=== PATIENT | female | born 1990 | race Native Hawaiian/Other Pacific Islander ===

== ENCOUNTER 2019-12-12 14:16 | Outpatient (REF) | payer MEDICAID, SELFPAY | END 2019-12-12 14:17 | disposition home or self-care (01) | LOC: HO.LAB 14:16 | PROVIDERS: PCP Internal Medicine; Visit Provider Internal Medicine | DX: Z20.828 Contact with and (suspected) exposure to other viral communicable diseases (principal) | CPT/HCPCS: C9803; U0003 ==

== ENCOUNTER → 2020-03-25 13:36 | Outpatient (BNVA) | payer MEDICAID, SELFPAY | PROVIDERS: PCP Internal Medicine; Referring Provider Internal Medicine; Visit Provider Physician Assistant ==

== ENCOUNTER 2020-04-23 11:27 | Outpatient (REF) | payer MEDICAID, SELFPAY ==
--- NOTE | ~2020-04-23 | US_ITS ---
EXAMINATION: PELVIC ULTRASOUND CLINICAL INFORMATION: Left lower quadrant pain. Evaluate for left ovarian cyst. COMPARISON: Previous CT of the abdomen and pelvis September 2019 TECHNIQUE: Transabdominal and transvaginal pelvic ultrasound was performed. Transvaginal exam was performed for better visualization of the uterus and ovaries. FINDINGS: The uterus is anteverted and measures 8.4 x 4.1 x 4.7 cm in dimension. No focal uterine lesion is seen. There is an IUD in the uterus in satisfactory position. The endometrium does not appear thickened. The cervix is normal appearing. The ovaries are upper normal in size. The right ovary measures 3.9 x 2.8 x 2.4 cm and the left ovary measures 3.2 x 3.5 x 2.2 cm. There are multiple small peripheral ovarian cysts or follicles. Appearance is questionable for polycystic ovarian syndrome. There is trace fluid in the pelvis. US/US pelvic complete IMPRESSION: IUD in satisfactory position. Upper normal-size ovaries with multiple small peripheral follicles or cysts. Ultrasound appearance is questionable for polycystic ovarian syndrome.
--- NOTE | ~2020-04-23 | US_ITS ---
EXAMINATION: PELVIC ULTRASOUND CLINICAL INFORMATION: Left lower quadrant pain. Evaluate for left ovarian cyst. COMPARISON: Previous CT of the abdomen and pelvis September 2019 TECHNIQUE: Transabdominal and transvaginal pelvic ultrasound was performed. Transvaginal exam was performed for better visualization of the uterus and ovaries. FINDINGS: The uterus is anteverted and measures 8.4 x 4.1 x 4.7 cm in dimension. No focal uterine lesion is seen. There is an IUD in the uterus in satisfactory position. The endometrium does not appear thickened. The cervix is normal appearing. The ovaries are upper normal in size. The right ovary measures 3.9 x 2.8 x 2.4 cm and the left ovary measures 3.2 x 3.5 x 2.2 cm. There are multiple small peripheral ovarian cysts or follicles. Appearance is questionable for polycystic ovarian syndrome. There is trace fluid in the pelvis. US/US transvaginal IMPRESSION: IUD in satisfactory position. Upper normal-size ovaries with multiple small peripheral follicles or cysts. Ultrasound appearance is questionable for polycystic ovarian syndrome.
[2020-04-23 12:49] LABS: MANUAL DIFF FLAG NO
[2020-04-23 12:54] LABS: Basophils Percent Auto 0.5 % (0-2); Eosinophils Absolute Auto 0.1 X10*3/uL (0.0-0.4); Eosinophils Percent Auto 1.7 % (0-4); Hematocrit 38.9 % (37-47); Hemoglobin 12.5 g/dl (12.0-16.0); Imm Gran Abs Auto 0.01 X10*3/uL (0.00-0.03); Imm Gran Pct Auto 0.2 % (0.0-0.4); Lymphocytes Absolute Auto 3.1 X10*3/uL (1.2-4.9); Lymphocytes Percent Auto 47.7 % (20-40); Mean Corpuscular HGB Conc 32.1 g/dl (31.0-35.0); Mean Corpuscular Hemoglobin 27.3 pg (27.0-33.0); Mean Corpuscular Volume 84.9 fL (80-98); Mean Platelet Volume 9.6 fL (9.4-12.3); Monocytes Absolute Auto 0.5 X10*3/uL (0.1-1.2); Monocytes Percent Auto 7.6 % (2-11); Neutrophils Absolute Auto 2.7 X10*3/uL (2.0-8.3); Neutrophils Percent Auto 42.3 % (45-73); Platelet Count 277 X10*3/uL (160-400); Red Blood Count 4.58 X10*6/uL (4.20-5.50); Red Cell Distribution Width 13.1 % (11.0-16.0); White Blood Count 6.4 X10*3/uL (4.8-10.8)
[2020-04-23 13:15] LABS: Alanine Aminotransferase 32 U/L (0-31); Albumin Level 4.5 g/dL (3.5-5.0); Alkaline Phosphatase 69 U/L (39-117); Anion Gap 9 (12-20); Aspartate Amino Transferase 27 U/L (5-31); Bilirubin Direct 0.2 mg/dL (0.0-0.5); Bilirubin Total 0.8 mg/dL (0.0-1.0); Blood Urea Nitrogen 12 mg/dL (9-16); Calcium 9.5 mg/dL (8.4-10.2); Carbon Dioxide 29 mmol/L (22-29); Chloride 104 mmol/L (96-108); Estimated Glomerular Filt Rate > 60; Glucose Random 100 mg/dL (60-115); Potassium 4.2 mmol/L (3.3-5.1); Sodium 138 mmol/L (135-145); Total Protein 7.5 g/dL (6.5-8.0)
== END 2020-04-23 11:28 | disposition home or self-care (01) ==
LOC: HO.US 11:27
PROVIDERS: Absent Provider Physician Assistant; PCP Internal Medicine; Visit Provider Advanced Practice Midwife
DX: R10.11 Right upper quadrant pain (principal); N83.202 Unspecified ovarian cyst, left side; R74.01 Elevation of levels of liver transaminase levels; K76.0 Fatty (change of) liver, not elsewhere classified
CPT/HCPCS: 36415; 76830; 76856; 80053; 80076; 82248; 83525; 85025

== ENCOUNTER → 2020-07-09 12:55 | Outpatient (BNVA) | payer MEDICAID, SELFPAY | PROVIDERS: PCP Internal Medicine; Visit Provider Obstetrics & Gynecology | DX: N75.0 Cyst of Bartholin's gland (principal) | CPT/HCPCS: 56420; 81025 ==

== ENCOUNTER → 2020-08-06 14:01 | Outpatient (BNVA) | payer MEDICAID, SELFPAY | PROVIDERS: PCP Internal Medicine; Visit Provider Obstetrics & Gynecology | DX: N75.0 Cyst of Bartholin's gland (principal) | CPT/HCPCS: 99212 ==

== ENCOUNTER 2020-08-21 11:22 | Emergency (ER) | payer MEDICAID, SELFPAY ==
[2020-08-21 11:25] VITALS: BP 121/74; PULSE 53; O2SAT 100
[2020-08-21 11:38] VITALS: BP 140/78; PULSE 77; RESP 18; TEMP 36.7; O2SAT 97; BMI 37.9
--- NOTE | 2020-08-21 11:51 | ED.GENADULT ---
HPI - General Adult General Chief complaint: General Medical Stated complaint: arm tingling x1day Time Seen by Provider: 08/21/20 11:31 Source: patient Limitations: no limitations History of Present Illness HPI narrative: Patient received a 2nd dose of the Covid vaccine on Tuesday. Patient felt some arm tingling and that her blood pressure was up in some irregular heartbeats. Patient denies nausea vomiting. No shortness of breath patient takes no current medications. Patient denies tobacco use. Patient denies drug or alcohol use. Symptoms are mild. Patient denies any increased stress in her life at this time. No other complaints at this time. Related Data Home Medications Medication Instructions Recorded Confirmed levonorgestrel 20 mcg/24 hours (6 INTRAUTERINE 07/09/20 yrs) 52 mg intrauterine device Allergies Allergy/AdvReac Type Severity Reaction Status Date / Time medroxyprogesterone Allergy Intermediate hives Verified 08/06/20 14:08 [Depo-Provera] Review of Systems Constitutional: Constitutional: Denies body ache(s), Denies chills, Denies fever(s), Denies headache(s) and Denies lethargy Eyes: Eyes: Denies diplopia ENT: Denies headache(s), Denies sore throat, Denies throat swelling and Denies tongue swelling Cardiovascular: Cardiovascular: Denies chest pain, Denies lightheadedness and Denies dyspnea Respiratory: Respiratory: Denies cough and Denies dyspnea Gastrointestinal: Gastrointestinal: Denies diarrhea, Denies nausea and Denies vomiting Musculoskeletal: Musculoskeletal: Reports as per HPI, Denies back pain, Denies myalgias and Denies numbness Neurologic: Denies confusion, Denies headache(s), Denies numbness and Denies Sensory deficit (Neuro) Psychiatric: Psychiatric: Denies confusion, Denies depression and Denies panic attacks Hematologic/Lymphatic: Hematologic/Lymphatic: Reports as per HPI Allergic/Immunologic: Allergic/Immunologic: Denies seasonal rhinorrhea, Denies throat swelling and Denies tongue swelling [facility] Past Medical History Attestation statement: The following information was validated with the patient. Medical History NAFLD (nonalcoholic fatty liver disease) Family History Family History Mother Breast cancer Paternal Grandfather Liver problem Social History Social History Household Members: Significant Other Alcohol intake: current Alcohol intake frequency: holidays/special occasions only Patient Tobacco Use Status: Never used Tobacco Advance Directives: Yes Advance Directives Information Provided: Yes Advance Directives on File: No Current occupational status: employed Current occupation: [employer] Physical Exam Vital Signs: Vital Signs: Last Vital Signs Temp 98.0 F 08/21/20 11:38 Pulse 49 L 08/21/20 12:06 Resp 18 08/21/20 12:06 BP 122/68 08/21/20 12:06 Pulse Ox 99 08/21/20 12:06 Body Mass Index 37.9 Const: Other: Alert well-appearing no acute distress General: No confusion Orientation/consciousness: No confusion HENMT: Other: throat is clear uvula is midline oral mucosa is moist Eyes: Other: pupils equal round reactive extraocular movements are intact Neck: Other: soft supple full range of motion no midline tenderness Chest: Other: lung sounds clear to auscultation bilaterally Cardio: Other: regular rate and rhythm no murmurs and rubs upper extremity bilateral pulses are equal GI: Other: soft nontender no rebound or guarding positive bowel sounds : General: Yes no CVA tenderness Back/Spine/Pelvis: Other: no paraspinal muscle tenderness of the lumbar spine or midline tenderness. No Back: no CVA tenderness Skin: Other: skin is warm and dry no rashes ecchymoses Neuro: Other: alert oriented x3 speech is intact no ataxia belt turner is equal bilaterally. Patient has no pronator drift General: No confusion Sensory Exam: No Sensory deficit (Neuro) Extrem: Other: full range of motion of upper and lower extremities patient is ambulatory. No dependent edema noted. Course Course Course Narrative: Sinus arrhythmia Bradycardia Vaccine side-effect Hypertension Patient was seen at the [facility] today sent in the ER with question sinus rhythm on EKG. Patient states her blood pressure has been up and down patient denies chest pain shortness of breath fever chills at this time. EKG from clinic reviewed sinus rhythm at a rate of 49 rhythm is regular. case discussed with Dr. Scott agrees with the EKG findings of inverted T-waves 3 and AVF follow-up with PCP will be recommended will see if there is an old EKG to compare ECG was already read by Cardiology see reading below. [facility] [address] [place], [place] [id number] ReportDraft Patient: Selvin Aleman#: [id number]: 1990Acct:[id number]/Sex: 30 / FADM Date: 08/21/20Loc: [address] Dr: Ordering Physician: Marco A Allison Date of Service: 08/21/20 Procedure(s): ECG 12 lead EKG Accession Number(s): [id number] cc: ~ Test Reason : GENERAL MEDICAL Blood Pressure : / mmHG Vent. Rate : 050 BPM Atrial Rate : 050 BPM P-R Int : 132 ms QRS Dur : 086 ms QT Int : 418 ms P-R-T Axes : 032 -05 -12 degrees QTc Int : 381 ms Sinus bradycardia with sinus arrhythmia Otherwise normal ECG No previous ECGs available Referred By: Marco A Allison Electronically Signed By: Dictated By:Signed By: DD/ [id number]/TT: 08/21/20 1203Transcriptionist: Medical Decision Making Lab Data Labs: Lab Results 08/21/20 Range/Units 12:00 POC Glucose 98 (60-115) mg/dL Discharge Plan Discharge Clinical Impression: Sinus bradycardia Patient Disposition: Home, Self-Care Instructions: Bradycardia (ED) Additional Instructions: Advised to follow up with the PCP for re-evaluation of vital signs Your blood sugar is normal at 98 EKG was reviewed by cardiology Prescriptions: No Action Mirena 20 mcg/24 hours (6 yrs) 52 mg intrauterine device intrauterine RF: 0 Referrals: Sue Madrid MD [Primary Care Provider] - 2 days
[2020-08-21 12:06] VITALS: BP 122/68; PULSE 49; RESP 18; O2SAT 99
[2020-08-21 12:10] LABS: Glucose, Whole Blood 98 mg/dL (60-115)
== END 2020-08-21 12:50 | disposition home or self-care (01) ==
PROVIDERS: Emergency Provider Emergency Medicine; PCP Internal Medicine
DX: R00.1 Bradycardia, unspecified (principal)
CPT/HCPCS: 82947; 93005; 99284

== ENCOUNTER 2020-08-21 15:37 | Emergency (ER) | payer MEDICAID, SELFPAY ==
[2020-08-21 15:44] VITALS: BP 124/82; PULSE 65; RESP 18; TEMP 36.8; O2SAT 99; BMI 37.9
[2020-08-21 20:00] VITALS: BP 118/67; PULSE 55; RESP 15; TEMP 36.8; O2SAT 100
--- NOTE | 2020-08-21 21:01 | ECG_ITS ---
Test Reason : SOB Blood Pressure : / mmHG Vent. Rate : 052 BPM Atrial Rate : 052 BPM P-R Int : 140 ms QRS Dur : 082 ms QT Int : 432 ms P-R-T Axes : 033 -07 -18 degrees QTc Int : 401 ms Sinus bradycardia with marked sinus arrhythmia Nonspecific T wave abnormality Abnormal ECG When compared with ECG of 21-AUG-2020 12:04, No significant change was found Referred By: Umesh Caceres Electronically Signed By:Itz Albert
--- NOTE | 2020-08-21 21:01 | ED.GENADULT ---
HPI - General Adult General Chief complaint: General Medical Stated complaint: Chest pain Time Seen by Provider: 08/21/20 20:59 Source: patient Mode of arrival: ambulatory Limitations: no limitations History of Present Illness HPI narrative: Patient with no known coronary disease no risk factor for coronary disease nonsmoker was seen earlier today for bradycardia with a rate of 49. Now she comes back pain as she has some sharp chest pain which is lasting only for few minutes. No shortness of breath no diaphoresis no palpitation patient does have anxiety and feels anxious Related Data Home Medications Medication Instructions Recorded Confirmed levonorgestrel 20 mcg/24 hours (6 INTRAUTERINE 07/09/20 yrs) 52 mg intrauterine device Allergies Allergy/AdvReac Type Severity Reaction Status Date / Time medroxyprogesterone Allergy Intermediate hives Verified 08/06/20 14:08 [Depo-Provera] Review of Systems Review of Systems: Constitutional : No Weight loss, No Fever, No Chills ENT/Mouth : No sore throat, No Rhinorrhea Eyes: No Eye Pain, No Swelling Cardiovascular : +Chest Pain, no palpitations Respiratory : No Cough, No Sputum, no shortness of breath Gastrointestinal : no Nausea, No Vomiting, No Diarrhea, No abdominal Pain, no black stools Genitourinary : No Dysuria, No Urinary Frequency Musculoskeletal : No joint pain, No Myalgias, No Joint Swelling Skin : No Skin Lesions, No rash Neuro : No Weakness, No Numbness, No Dizziness, No Headache Psych : No Anxiety/Panic, No Depression Heme/Lymph: No Bruising, No Lymphadenopathy Endocrine : No Polyuria, No Polydipsia All other systems reviewed and are negative [facility] Past Medical History Medical History NAFLD (nonalcoholic fatty liver disease) Family History Family History Mother Breast cancer Paternal Grandfather Liver problem Social History Social History Household Members: Significant Other Alcohol intake: never Patient Tobacco Use Status: Never used Tobacco Use of substances other than those prescribed or required for medical reasons: No Advance Directives: No Current occupational status: employed Current occupation: [employer] Physical Exam Vital Signs: Vital Signs: Last Vital Signs Temp 98.2 F 08/21/20 20:00 Pulse 55 08/21/20 20:00 Resp 15 08/21/20 20:00 BP 118/67 08/21/20 20:00 Pulse Ox 100 08/21/20 20:00 Body Mass Index 37.9 Appearance: Alert. Oriented X3. No acute distress. Anxious Eyes: PERRLA, No Nystagmus ENT: Pharynx normal. Oral Mucosa moist Neck: Normal inspection. Neck supple. CVS: Normal heart rate and rhythm. Pulses normal. Respiratory: No respiratory distress. Equal air entry bilateral, no wheezing/rales/rhonchi Abdomen: Soft and nontender. Bowel sounds are present, no mass palpable, no CVA tenderness Skin: Skin warm and dry. Normal skin color. Normal skin turgor. Extremities: No lower extremity edema. No calf tenderness Neuro: Oriented X 3. No motor deficit. No sensory deficit.No cerebellar signs , Medical Decision Making MDM Narrative Medical decision making narrative: Patient with atypical chest pain sharp in character patient seems very anxious with no risk factors will repeat the EKG ECG Data Attestation: I personally reviewed and interpreted this ECG as follows: Interpretation: Sinus bradycardia heart rate 52 beats per minute PACs no acute ischemic changes normal intervals normal axis Scores Heart Score History: -0- slightly suspicious ECG: -0- normal Age: -0- < or = 45 Risk factory: -0- no risk factors known Troponin: -0- < or = normal limit Score: 0 Risk: 1.7% Discharge Plan Discharge Clinical Impression: Atypical chest pain, Anxiety Patient Disposition: Home, Self-Care Instructions: Chest Pain (ED), Anxiety (ED) Additional Instructions: Your chest pain is not from the heart likely musculoskeletal/anxiety Follow with PCP as needed Prescriptions: No Action Mirena 20 mcg/24 hours (6 yrs) 52 mg intrauterine device intrauterine RF: 0
== END 2020-08-21 22:17 | disposition home or self-care (01) ==
PROVIDERS: Emergency Provider Internal Medicine; PCP Internal Medicine
DX: R07.89 Other chest pain (principal); F41.9 Anxiety disorder, unspecified
CPT/HCPCS: 93005; 99283; 99284

== ENCOUNTER 2020-09-23 18:47 | Emergency (ER) | payer MEDICAID, SELFPAY ==
[2020-09-23 20:07] VITALS: PULSE 68; RESP 18; TEMP 37; O2SAT 99; BMI 37.4
--- NOTE | 2020-09-23 20:09 | ECG_ITS ---
Test Reason : ANXIETY Blood Pressure : / mmHG Vent. Rate : 064 BPM Atrial Rate : 064 BPM P-R Int : 134 ms QRS Dur : 084 ms QT Int : 396 ms P-R-T Axes : 048 023 -18 degrees QTc Int : 408 ms Sinus rhythm with marked sinus arrhythmia Nonspecific T wave abnormality Abnormal ECG When compared with ECG of 21-AUG-2020 21:46, No significant change was found Referred By: Generic ED Physician Electronically Signed By:DREW LANDIS
[2020-09-23 20:10] VITALS: BP 121/67
[2020-09-23 20:44] LABS: MANUAL DIFF FLAG NO
[2020-09-23 20:47] LABS: Basophils Percent Auto 0.4 % (0-2); Eosinophils Absolute Auto 0.1 X10*3/uL (0.0-0.4); Eosinophils Percent Auto 0.8 % (0-4); Hematocrit 36.7 % (37-47); Hemoglobin 11.8 g/dl (12.0-16.0); Imm Gran Abs Auto 0.02 X10*3/uL (0.00-0.03); Imm Gran Pct Auto 0.2 % (0.0-0.4); Lymphocytes Absolute Auto 3.4 X10*3/uL (1.2-4.9); Lymphocytes Percent Auto 34.5 % (20-40); Mean Corpuscular HGB Conc 32.2 g/dl (31.0-35.0); Mean Corpuscular Hemoglobin 27.8 pg (27.0-33.0); Mean Corpuscular Volume 86.4 fL (80-98); Mean Platelet Volume 9.5 fL (9.4-12.3); Monocytes Absolute Auto 0.4 X10*3/uL (0.1-1.2); Monocytes Percent Auto 4.2 % (2-11); Neutrophils Absolute Auto 5.9 X10*3/uL (2.0-8.3); Neutrophils Percent Auto 59.9 % (45-73); Platelet Count 296 X10*3/uL (160-400); Red Blood Count 4.25 X10*6/uL (4.20-5.50); Red Cell Distribution Width 12.8 % (11.0-16.0); White Blood Count 9.8 X10*3/uL (4.8-10.8)
[2020-09-23 21:15] LABS: Alanine Aminotransferase 37 U/L (0-31); Albumin Level 4.4 g/dL (3.5-5.0); Alkaline Phosphatase 80 U/L (39-117); Anion Gap 11 (12-20); Aspartate Amino Transferase 25 U/L (5-31); Bilirubin Total 0.3 mg/dL (0.0-1.0); Blood Urea Nitrogen 6 mg/dL (9-16); Calcium 9.6 mg/dL (8.4-10.2); Carbon Dioxide 25 mmol/L (22-29); Chloride 107 mmol/L (96-108); Creatinine Clr Calc Pharmacy 125.5; Estimated Glomerular Filt Rate > 60; Glucose Random 89 mg/dL (60-115); Sodium 139 mmol/L (135-145); Total Protein 7.4 g/dL (6.5-8.0)
== END 2020-09-23 22:06 | disposition left against medical advice (07) ==
PROVIDERS: Emergency Provider Emergency Medicine; PCP Internal Medicine
DX: F41.9 Anxiety disorder, unspecified (principal); R20.0 Anesthesia of skin
CPT/HCPCS: 36415; 80053; 85025; 93005; 99283

== ENCOUNTER 2020-09-25 15:09 | Outpatient (REF) | payer MEDICAID, SELFPAY ==
[2020-09-26 09:13] LABS: CT PCR NOT DETECTED (Not Detect.); NG PCR NOT DETECTED (Not Detect.)
== END 2020-09-25 15:10 | disposition home or self-care (01) ==
LOC: HO.LAB 15:09
PROVIDERS: PCP Internal Medicine; Visit Provider Obstetrics & Gynecology
DX: R31.29 Other microscopic hematuria (principal); N94.10 Unspecified dyspareunia
CPT/HCPCS: 81025; 87491; 87591; 99212

== ENCOUNTER → 2020-09-30 10:56 | Outpatient (REF) | payer MEDICAID, SELFPAY ==
--- NOTE | 2020-09-30 11:00 | ECG_ITS ---
Hook-up date: 2020-09-30 11:19:00 Duration: 47:59:00 Test Indications: BRADYCARDIA Medications: 081599 QRS complexes * Ventricular ectopics which represent % of total QRS comp. 95 Supraventricular ectopics which represent <1 % of total QRS comp. * Paced QRS complexs which represent % of total QRS comp. VENTRICULAR ECTOPY * Isolated * Bigeminal Cycles * Couplets * Runs * Beats in Runs * Beats LONGEST at * BPM at :: -- * Beats FASTEST at * BPM at :: -- SUPRAVENTRICULAR ECTOPY 61 Isolated 9 Couplets 5 Runs 16 Beats in Runs 4 Beats LONGEST at 99 BPM at 12:50:08 2020-09-30 3 Beats FASTEST at 106 BPM at 18:41:15 2020-09-30 HEART RATES 39 MIN at 09:07:53 2020-10-01 72 AVG 147 MAX at 19:33:04 2020-09-30 LONGEST RR 1.6080 secs at 10:48:06 2020-10-01 S-T LEVELS Channel 1 - 128 mm at 11:19:00 2020-09-30 - 128 mm at 11:19:00 2020-09-30 Channel 2 - 128 mm at 11:19:00 2020-09-30 - 128 mm at 11:19:00 2020-09-30 Channel 3 - 128 mm at 03:03:81 -- - 128 mm at 03:03:81 Underlyiing rhythm is sinus; Average ventricular rate 72/min; range 39-147/min; About 25% of the time, rate <60/min; No significant pauses; Rare PACs; No sustained arrhythmias. Referred By: Sue Madrid Overread By: SAHRA DAVIS
== END ==
LOC: HO.CARD 10:56
PROVIDERS: Absent Provider Obstetrics & Gynecology; PCP Internal Medicine; Visit Provider Internal Medicine
DX: R00.1 Bradycardia, unspecified (principal); R31.29 Other microscopic hematuria
CPT/HCPCS: 87086; 87147; 93225; 93226

== ENCOUNTER → 2020-10-30 09:37 | Outpatient (BNVA) | payer MEDICAID, SELFPAY | PROVIDERS: PCP Internal Medicine; Visit Provider Obstetrics & Gynecology | DX: R31.29 Other microscopic hematuria (principal) | CPT/HCPCS: 99212 ==

== ENCOUNTER 2020-11-05 11:24 | Outpatient (REF) | payer MEDICAID, SELFPAY ==
--- NOTE | ~2020-11-05 | US_ITS ---
EXAMINATION: US PELVIS CLINICAL INFORMATION: Dyspareunia; The last menstrual period is not specified. COMPARISON: None TECHNIQUE: Ultrasound of the pelvis is performed using both transabdominal and transvaginal transducers along with Doppler. Transvaginal imaging is performed due to inadequate visualization transabdominally. FINDINGS: Uterus: The uterus is anteverted and measures 8.2 x 3.2 x 4.8 cm. The double wall endometrial thickness is 0.4 mm. An intrauterine device is seen, properly situated within the endometrial canal. The uterus is smooth in contour and has normal myometrial echogenicity. No visible fibroid. Adnexa: Both ovaries are visualized. There is normal color flow to the adnexa. There is no ovarian torsion. There is no pelvic ascites or fluid collection. Right ovary measures 4.0 x 2.9 x 2.7 cm (volume 16.4 mL). Multiple small peripheral, contiguous follicles are noted. Left ovary measures 4.1 x 2.4 x 3.2 cm (volume 16.5 mL). Multiple small peripheral, contiguous follicles are noted. US/US pelvic and transvaginal IMPRESSION: 1. An intrauterine device is seen, properly situated within the endometrial canal. 2. Multiple bilateral ovarian follicles raise the possibility of polycystic ovary syndrome. This is not a pathognomonic ultrasound appearance, and clinical correlation is recommended.
== END 2020-11-05 11:25 | disposition home or self-care (01) ==
LOC: HO.US 11:24
PROVIDERS: Visit Provider Obstetrics & Gynecology
DX: N94.10 Unspecified dyspareunia (principal)
CPT/HCPCS: 76830; 76856

== ENCOUNTER → 2020-11-19 12:07 | Outpatient (BNVA) | payer MEDICAID, SELFPAY | PROVIDERS: Visit Provider Obstetrics & Gynecology ==

== ENCOUNTER 2020-11-25 10:53 | Outpatient (REF) | payer MEDICAID, SELFPAY ==
--- NOTE | ~2020-11-25 | US_ITS ---
EXAMINATION: US ABDOMEN LIMITED WITH LIVER ELASTOGRAPHY CLINICAL INFORMATION: Fatty liver COMPARISON: Previous limited abdominal ultrasound and CT of the abdomen and pelvis September 2019 TECHNIQUE: Real-time imaging of the abdominal viscera. Noninvasive ultrasound liver fibrosis assessment is performed using Mariah ElastPQ point quantification shear wave elastography (pSWE) with a C5-2 MHz transducer. Multiple elastography samples are obtained. FINDINGS: PANCREAS: Normal. LIVER: Liver echotexture is increased. The liver is enlarged. Liver contour is normal. No focal lesion or intrahepatic biliary duct dilatation. The right lobe measures 19 cm in length. The left lobe measures 14 cm in length. Portal flow is normal/hepatopedal Shear wave liver elastography median stiffness is 1.5 m/s (reference: normal median stiffness is 1.3 m/s or less). IQR/median stiffness to assess sampling precision is 0.2 (reference: good quality data set is IQR/median stiffness of 0.15 or less). GALLBLADDER: The gallbladder is normal in size. There is a 4 mm echogenic density adjacent to the gallbladder wall that does not move or shadow suggestive of a polyp. This is stable from previous exam. No gallstones are seen. The gallbladder wall is otherwise normal. COMMON BILE DUCT: Normal in caliber measuring 0.5 cm in diameter. RIGHT KIDNEY: There is a linear echogenic density in the lower pole measuring 3 x 8 mm with posterior acoustic shadowing questionable for a stone. No stone is seen on prior exams. No hydronephrosis. The kidney measures 10 cm in maximum dimension. FREE FLUID: None. US/US abdomen barajas w elastography IMPRESSION: 1. Impression: Enlarged fatty liver. Stable gallbladder wall polyp. Question right renal stone. 2. Liver elastography: Slightly limited due to sampling error. In the absence of other known clinical signs, rules out compensated advanced chronic liver disease. REFERENCE: Society of Radiologists in Ultrasound Liver Stiffness Thresholds (2020): LIVER STIFFNESS THRESHOLDS: *Liver Stiffness equal or less than 1.3 m/s: High probability of being normal. *Liver Stiffness less than 1.7 m/s: In the absence of other known clinical signs, rules out compensated advanced chronic liver disease. *Liver Stiffness 1.7-2.1 m/s: Suggestive of compensated advanced chronic liver disease but need further test for confirmation. *Liver Stiffness over 2.1 m/s: Rules in compensated advanced chronic liver disease. *Liver Stiffness over 2.4 m/s: Suggestive of clinically significant portal hypertension. QUALITY OF DATA SET: *IQR/Median value equal or less than 0.15 implies a quality data set. *IQR/Median value over 0.15 implies a poor quality data set. SIGNIFICANT CHANGE FROM PRIOR EXAM: Significant change if liver stiffness measurement is 10% or greater from prior exam. OTHER CONSIDERATIONS: The stage of liver fibrosis may be overestimated in the setting of acute hepatitis, liver inflammation, elevated liver function tests, hepatic vascular congestion, obstructive cholestasis, non-fasting state, and infiltrative diseases such as amyloidosis and lymphoma. In some patients with NAFLD, the liver stiffness thresholds for compensated advanced chronic liver disease may be lower. In causes other than viral hepatitis and NAFLD, liver stiffness thresholds are not well established.
== END 2020-11-25 10:54 | disposition home or self-care (01) ==
LOC: HO.US 10:53
PROVIDERS: PCP Internal Medicine; Visit Provider Physician Assistant
DX: K76.0 Fatty (change of) liver, not elsewhere classified (principal)
CPT/HCPCS: 76705; 76981

== ENCOUNTER 2022-07-28 09:19 | Outpatient (REF) | payer MEDICAID, SELFPAY ==
--- NOTE | ~2022-07-28 | MM_ITS ---
EXAMINATION: MM DIAGNOSTIC DIGITAL BREAST TOMOSYNTHESIS, BILATERAL US DIAGNOSTIC ULTRASOUND BREAST, RIGHT CLINICAL INFORMATION: 32-year-old with strong family history breast cancer, mother premenopausal, passed at age 43. Maternal aunt and paternal aunt. Prior history palpable area posterior upper outer right breast a year ago, no palpable abnormality currently. No prior breast imaging. The lifetime risk of breast cancer based on the Tyrer-Cuzick Model is 34%. COMPARISON: None (current study represents initial baseline exam). TECHNIQUE: Digital breast tomosynthesis is performed in both the craniocaudal and mediolateral oblique views along with computer-aided detection (CAD). Synthesized 2D images are generated from the tomosynthesis. Additional bilateral MLO views are provided. Ultrasound right breast is targeted to the prior area of palpable concern upper outer quadrant right breast. Grayscale imaging and color Doppler are performed without and with harmonics. FINDINGS: There are scattered areas of fibroglandular density (ACR BI-RADS breast composition Category b). There are no significant masses, abnormal calcifications, or other abnormalities. No architectural abnormality. The axilla and skin contours are unremarkable. Ultrasound right breast demonstrates no cystic or solid mass, architectural abnormality, or focal duct ectasia. Results are discussed with the patient at time of visit. Breast imaging is currently unremarkable. Availability of genetic testing was discussed and recommended. Given the family history, also recommend follow-up screening mammography in 12 months. MM/MM tomosynthesis diagnostic BI IMPRESSION: -No mammographic evidence of malignancy. -Unremarkable right breast ultrasound. ASSESSMENT: BI-RADS 1: Negative RECOMMENDATION: 1. Patient should be managed based on the clinical impression. If there is clinically palpable concern, further evaluation may be considered with surgical consult. 2. The lifetime risk of breast cancer based on the Tyrer-Cuzick Model is 34%. Suggest genetic testing consultation. Additional annual adjunct screening with breast MRI may be of benefit in women with a risk score of 20% or greater. 3. Otherwise, routine annual screening mammography, due in 12 months. This patient's information was entered into a reminder system with a target due date for their next mammogram.
== END 2022-07-28 09:20 | disposition home or self-care (01) ==
LOC: HO.MAMMO 09:19
PROVIDERS: Visit Provider Nurse Practitioner Family
DX: R92.2 Inconclusive mammogram (principal); Z87.898 Personal history of other specified conditions; Z80.3 Family history of malignant neoplasm of breast
CPT/HCPCS: 76642; 77062; 77066

== ENCOUNTER 2022-08-24 14:26 | Outpatient (AMB) | payer MEDICAID, SELFPAY ==
--- NOTE | 2022-08-24 14:35 | A.OFFVIS_ITS ---
Intake Vital Signs 08/24/22 14:39 Height 5 ft 5 in Weight 214 lb BMI 35.6 BP 110/57 L Blood Pressure Location Lt brachial Position Sitting Pulse 92 Intake Visit Reasons: High Risk - ? Genetic Test Intake Note: This patient presents for an assessment for high risk, family history of carcinoma, possible genetic testing. Patient c/o; about 1 year ago had mass on the breast which she had DI; benign. Sequins Winder Required: No Accompanied by: Self / Same As Patient Allergies medroxyprogesterone [Depo-Provera] Allergy (Intermediate, Verified 08/24/22 14:41) hives Medication List - Last Reconciled 08/24/22 by Nilson Carey MD levonorgestrel (Mirena) intrauterine valacyclovir 1,000 mg PO DAILY Is last menstrual period known: Yes (6 years ago) HPI HPI Comments History of Present Illness Details 32-year-old female patient presenting for a high risk breast examination. She has a strong family history of breast cancer including her mother, maternal aunt and paternal aunt. Her mother from breast cancer at the age 43. She reports a prior history of a palpable breast mass in the right breast at the upper outer quadrant approximately a year ago. This subsequently resolved and was felt to possibly be due to a cyst. She currently denies any breast symptoms in either breast. She underwent evaluation with mammogram and ultrasound 07/28/2022 at the [facility]. Her Tyrer-Cuzick remaining lifetime risk of breast cancer was calculated at 34 %, well above the 20% threshold placing her at high risk for breast cancer. The mammogram revealed no mammographic evidence malignancy and the ultrasound of the right breast was unremarkable (BI-RADS 1). Annual breast MRI screening was recommended due to the elevated Tyrer-Cuzick score. Patient presents as well for discussion regarding genetic testing. She is . Her last menstrual cycle was 6 years ago. [facility] Medical History NAFLD (nonalcoholic fatty liver disease) Surgical History No pertinent past surgical history Family History Paternal Grandfather Liver problem Mother Breast cancer, Onset Age: 43 Maternal Aunt Breast cancer Paternal Aunt Breast cancer Social History Household Members: Significant Other Alcohol intake: never Patient Tobacco Use Status: Never used Tobacco Current occupational status: employed Current occupation: [employer] Female Reproductive History Menstrual Age of Menarche: 12 Total pregnancies: 0 Review of Systems Const All systems reviewed & are unremarkable except as noted in HPI and below Physical Exam Vital Signs: Last Vital Signs Pulse 92 08/24/22 14:39 BP 110/57 L 08/24/22 14:39 BMI result Body Mass Index 35.6 Const General: cooperative and no acute distress Nutritional Appearance: well nourished Orientation/consciousness: patient oriented x3 Limitations: no limitations HEENT Head: Yes normocephalic and Yes atraumatic Ears: hearing grossly normal bilaterally Chest Other: Left breast: No skin change, no nipple retraction, no nipple discharge, no palpable mass, no enlarged lymph nodes. Right breast: No skin change, no nipple retraction, no nipple discharge, no palpable mass, no enlarged lymph nodes Resp Effort & Inspection: normal respiratory effort, no audible wheezes, no cough and no respiratory distress Cardio Jugular venous distension: no JVD GI Inspection: Yes normal to inspection Skin Other: Warm, dry, no rash Neuro General: patient oriented x3 Extrem General: Yes no clubbing, cyanosis or edema Assessment & Plan Assessment & Plan (1) At high risk for breast cancer: Code(s): Z91.89 - Other specified personal risk factors, not elsewhere classified (2) Family history of breast cancer: Code(s): Z80.3 - Family history of malignant neoplasm of breast Plan 32-year-old female patient presenting with a strong family history of breast cancer including her mother from breast cancer the age of 43. Patient was determined to be at high risk for breast cancer with a calculated Tyrer-Cuzick remaining lifetime risk of breast cancer of 34 %. Examination today revealed no suspicious findings in either breast. Her most recent mammogram of 07/28/2022 revealed no mammographic evidence of malignancy. I recommended high risk screening including yearly mammogram alternating every 6 months with yearly breast MRI and twice yearly clinical breast examination. She is also encouraged to perform monthly self examinations. I reviewed the procedure, risks and benefits of genetic testing in detail today. She wishes to proceed with genetic testing and will return approximately 6 weeks to review the results. She is welcome to call sooner for any new concerns. Coding Level of Care Code New Pt Level 4 (67369) Diagnoses At high risk for breast cancer Z91.89 Family history of breast cancer Z80.3
[2022-08-24 14:39] VITALS: BP 110/57; PULSE 92; BMI 35.6
== END 2022-08-24 15:02 | disposition home or self-care (01) ==
PROVIDERS: PCP Nurse Practitioner Family; Visit Provider Surgery
DX: Z80.3 Family history of malignant neoplasm of breast (principal); Z91.89 Other specified personal risk factors, not elsewhere classified
CPT/HCPCS: 99203

== ENCOUNTER → 2022-08-24 14:26 | Outpatient (BNVA) | payer MEDICAID, SELFPAY | PROVIDERS: PCP Nurse Practitioner Family; Visit Provider Surgery ==

== ENCOUNTER 2022-09-26 22:37 | Emergency (ER) | payer MEDICAID, SELFPAY ==
[2022-09-26 22:40] VITALS: BP 129/74; PULSE 84; RESP 18; TEMP 37.5; O2SAT 99; BMI 35.1
[2022-09-26 23:48] VITALS: BP 132/66; PULSE 64; RESP 16; TEMP 36.8; O2SAT 100
[2022-09-27] MEDS: Diphth,Pertus(ACell),Tet Adult 0.5 ML SYRINGE IM (00:30)
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
== END 2022-09-27 00:51 | disposition home or self-care (01) ==
PROVIDERS: Emergency Provider Internal Medicine; PCP Nurse Practitioner Family
DX: S81.812A Laceration without foreign body, left lower leg, initial encounter (principal); S80.812A Abrasion, left lower leg, initial encounter; Y33.XXXA Other specified events, undetermined intent, initial encounter; Y93.9 Activity, unspecified; Y92.9 Unspecified place or not applicable; Y99.9 Unspecified external cause status; Z23 Encounter for immunization
CPT/HCPCS: 90471; 90715; 99284

== ENCOUNTER 2022-10-05 12:52 | Outpatient (AMB) | payer MEDICAID, SELFPAY ==
--- NOTE | 2022-10-05 13:03 | A.OFFVIS_ITS ---
Intake Intake Visit Reasons: Genetic Results *HERE* Intake Note: Patient is seen in office for genetic testing results. Patient c/o: here for genetic results. 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 She has a strong family history of breast cancer including her mother, maternal aunt and paternal aunt. Her mother from breast cancer at the age 43. She reports a prior history of a palpable breast mass in the right breast at the upper outer quadrant approximately a year ago. This subsequently resolved and was felt to possibly be due to a cyst. She currently denies any breast symptoms in either breast. She underwent evaluation with mammogram and ultrasound 07/28/2022 at the [facility]. Her Tyrer-Cuzick remaining lifetime risk of breast cancer was calculated at 34 %, well above the 20% threshold placing her at high risk for breast cancer. The mammogram revealed no mammographic evidence malignancy and the ultrasound of the right breast was unremarkable (BI-RADS 1). Annual breast MRI screening was recommended due to the elevated Tyrer-Cuzick score. Patient returns today following her genetic testing performed on 08/24/2022. Field no clinically significant mutations identified. Her breast cancer risk score was calculated at 30.4 %. No variance of uncertain significance were identified. Copy of the report was provided to the patient. Recommendations include monthly self examination, twice yearly clinical breast examination, yearly mammogram alternating every 6 months with yearly breast MRI. Her breast MRI has been ordered and is awaiting being schedu led. She is . Her last menstrual cycle was 6 years ago. [facility] Medical History NAFLD (nonalcoholic fatty liver disease) Surgical History No pertinent past surgical history Family History Paternal Grandfather Liver problem Mother Breast cancer, Onset Age: 43 Maternal Aunt Breast cancer Paternal Aunt Breast cancer Social History Household Members: Significant Other Alcohol intake: never Patient Tobacco Use Status: Never used Tobacco Current occupational status: employed Current occupation: [employer] Female Reproductive History Menstrual Age of Menarche: 12 Review of Systems Const All systems reviewed & are unremarkable except as noted in HPI and below Physical Exam Const General: cooperative and no acute distress Nutritional Appearance: well nourished Orientation/consciousness: patient oriented x3 Limitations: no limitations HEENT Head: Yes normocephalic and Yes atraumatic Ears: hearing grossly normal bilaterally Chest Other: Exam deferred Resp Effort & Inspection: normal respiratory effort, no audible wheezes, no cough and no respiratory distress Cardio Jugular venous distension: no JVD GI Inspection: Yes normal to inspection Skin Other: Warm, dry, no rash Neuro General: patient oriented x3 Extrem General: Yes no clubbing, cyanosis or edema Assessment & Plan Assessment & Plan (1) At high risk for breast cancer: Code(s): Z91.89 - Other specified personal risk factors, not elsewhere classified (2) Family history of breast cancer: Code(s): Z80.3 - Family history of malignant neoplasm of breast Plan 32-year-old female patient presenting with a strong family history of breast cancer including her mother from breast cancer the age of 43. Patient was determined to be at high risk for breast cancer with a calculated Tyrer-Cuzick remaining lifetime risk of breast cancer of 34 %. Previous examination revealed no suspicious findings in either breast. Her most recent mammogram of 07/28/2022 revealed no mammographic evidence of malignancy. Genetic testing revealed no clinically significant mutations identified. No variance of uncertain significance were identified as well. I recommended high risk screening including yearly mammogram alternating every 6 months with yearly breast MRI and twice yearly clinical breast examination. She is also encouraged to perform monthly self examinations. She should return in 6 months for follow- up breast examination. Coding Level of Care Code Est Pt Level 3 (16584) Diagnoses At high risk for breast cancer Z91.89 Family history of breast cancer Z80.3
== END 2022-10-05 13:25 | disposition home or self-care (01) ==
PROVIDERS: PCP Nurse Practitioner Family; Visit Provider Surgery
DX: Z80.3 Family history of malignant neoplasm of breast (principal); Z91.89 Other specified personal risk factors, not elsewhere classified
CPT/HCPCS: 99213

== ENCOUNTER → 2022-10-05 12:52 | Outpatient (BNVA) | payer MEDICAID, SELFPAY | PROVIDERS: PCP Nurse Practitioner Family; Visit Provider Surgery | DX: Z91.89 Other specified personal risk factors, not elsewhere classified (principal); Z80.3 Family history of malignant neoplasm of breast | CPT/HCPCS: 99212 ==

== ENCOUNTER 2023-03-01 11:22 | Outpatient (REF) | payer MEDICAID, SELFPAY ==
--- NOTE | ~2023-03-01 | MR_ITS ---
EXAMINATION: MR BREAST WITHOUT AND WITH CONTRAST, BILATERAL CLINICAL INFORMATION: High risk screening. Family history of malignant neoplasm of breast. Patient questionnaire indicates mother diagnosed in her late 30s. The estimated lifetime risk of developing breast cancer is 34% COMPARISON: Initial MRI Mammography (nondiagnostic monitor review): 07/28/22. TECHNIQUE: A 1.5 T system and a dedicated breast coil. T1-weighted sequences without fat-saturation were obtained prior to the administration of contrast. Fat-saturated T1 and T2-weighted sequences were also acquired. The patient received 10 mL of IV gadolinium-based contrast, Gadavist. Multiple sequential dynamic T1-weighted sequences were obtained through both breasts with fat-saturation. Subtracted images were reviewed. CAD postprocessing with 3-D reconstructions, maximum intensity projections and kinetic analysis was performed by the interpreting radiologist at an independent workstation and reviewed as a portion of this exam. FINDINGS: The study is limited. Patient habitus is not well suited to the breast coil. The breast anatomy is distorted. There is motion artifact. Amount of Remaining Fibroglandular Signal: There are scattered areas of fibroglandular tissue (ACR BI-RADS breast composition category B).* Background Parenchymal Enhancement: Moderate Symmetry of Background Enhancement: Symmetric RIGHT BREAST: There are no suspicious findings. Masses: There are no suspicious enhancing masses. Non-mass Enhancement: There is no suspicious non-mass enhancement. Focus: There are no suspicious enhancing foci. Non-enhancing Findings: Associated findings: There are no suspicious associated findings. Kinetic Curve Assessment: Initial Phase: There are no suspicious areas of color signal. Delayed Phase: There are no areas of washout kinetics. LEFT BREAST: There are no suspicious findings. Masses: There are no suspicious enhancing masses. Non-mass Enhancement: There is no suspicious non-mass enhancement. Focus: There are no suspicious enhancing foci. Non-enhancing Findings: Associated Findings: There are no suspicious associated findings. Kinetic Curve Assessment: Initial Phase: There are no areas of suspicious color signal. Delayed Phase: There are no areas of washout kinetics. The axillary lymph nodes are morphologically normal. No suspicious internal mammary lymph nodes are seen. No suspicious abnormality in the visualized portions of chest or abdomen. MR/MR breast BI wo/w con IMPRESSION: Limited study. No definite evidence of malignancy ASSESSMENT: Right Breast: ACR BI-RADS 1: Negative examination. Left Breast: ACR BI-RADS 1: Negative examination. RECOMMENDATIONS: Continue screening.
[2023-03-01] MEDS: gadobutroL 10 ML VIAL IVPUSH (13:11)
== END 2023-03-01 11:23 | disposition home or self-care (01) ==
LOC: HO.MRI 11:22
PROVIDERS: Visit Provider Surgery
DX: Z80.3 Family history of malignant neoplasm of breast (principal); Z91.89 Other specified personal risk factors, not elsewhere classified
CPT/HCPCS: 77049; A9585

== ENCOUNTER 2023-03-15 08:46 | Outpatient (AMB) | payer MEDICAID, SELFPAY ==
--- NOTE | 2023-03-15 08:48 | A.OFFVIS_ITS ---
Intake Vital Signs 03/15/23 08:57 Height 5 ft 5 in Weight 217 lb 2 oz BMI 36.1 BP 140/78 H Blood Pressure Location Lt brachial Position Sitting Pulse 71 Intake Visit Reasons: Breast exam, 6 month follow up Intake Note: Patient is seen in office for 6 month follow up visit, breast exam. Pt c/o: before the MRI had pain in the left breast towards the axilla, pain is gone at the moment, no other concerns or changes us & mm:07/29/23 B MRI:03/01/23 Change Release Manager Required: No Order Processing Specialist: Order Processing Specialist Present Accompanied by: Self / Same As Patient Allergies medroxyprogesterone [Depo-Provera] Allergy (Intermediate, Verified 03/15/23 08:56) hives Medication List - Last Reconciled 03/15/23 by Nilson Carey MD levonorgestrel (Mirena) intrauterine valacyclovir 1,000 mg PO DAILY HPI HPI Comments History of Present Illness Details 32-year-old female patient presenting fo r a high risk breast examin [place]. She has a strong family history of breast cancer including her mother, maternal aunt and paternal aunt. Her mother from breast cancer at the age 43. She reports a prior history of a palpable breast mass in the right breast at the upper outer quadrant approximately a year ago. This subsequently resolved and was felt to possibly be due to a cyst. She currently denies any breast symptoms in either breast. She underwent evaluation with mammogram and ultrasound 07/28/2022 at the [facility]. Her Tyrer-Cuzick remaining lifetime risk of breast cancer was calculated at 34 %, well above the 20% threshold placing her at high risk for breast cancer. The mammogram revealed no mammographic evidence malignancy and the ultrasound of the right breast was unremarkable (BI-RADS 1). Annual breast MRI screening was recommended due to the elevated Tyrer-Cuzick score. Patient returns today following her genetic testing performed on 08/24/2022. No clinically significant mutations identified. Her breast cancer risk score was calculated at 30.4 %. No variance of uncertain significance were identified. Copy of the report was provided to the patient. Recommendations include monthly self examination, twice yearly clinical breast examination, yearly mammogram alternating every 6 months with yearly breast MRI. She underwent MRI on 03/01/2023. This revealed no MR specific evidence of malignancy in either breast (BI-RADS 1 bilateral). She is . Her last menstrual cycle was 6 years ago. [facility] Medical History NAFLD (nonalcoholic fatty liver disease) Surgical History No pertinent past surgical history Family History Paternal Grandfather Liver problem Mother Breast cancer, Onset Age: 43 Maternal Aunt Breast cancer Paternal Aunt Breast cancer Social History Household Members: Significant Other Alcohol intake: never Patient Tobacco Use Status: Never used Tobacco Current occupational status: employed Current occupation: [email or web address] Female Reproductive History Menstrual Age of Menarche: 12 Review of Systems Const All systems reviewed & are unremarkable except as noted in HPI and below Physical Exam Vital Signs: Last Vital Signs Pulse 71 03/15/23 08:57 BP 140/78 H 03/15/23 08:57 BMI result Body Mass Index 36.1 Const General: cooperative and no acute distress Nutritional Appearance: well nourished Orientation/consciousness: patient oriented x3 Limitations: no limitations HEENT Head: Yes normocephalic and Yes atraumatic Ears: hearing grossly normal bilaterally Resp Effort & Inspection: normal respiratory effort, no audible wheezes, no cough and no respiratory distress Cardio Jugular venous distension: no JVD GI Inspection: Yes normal to inspection Skin Other: Warm, dry, no rash Neuro General: patient oriented x3 Extrem General: Yes no clubbing, cyanosis or edema Assessment & Plan Assessment & Plan (1) At high risk for breast cancer: Code(s): Z91.89 - Other specified personal risk factors, not elsewhere classified (2) Family history of breast cancer: Code(s): Z80.3 - Family history of malignant neoplasm of breast Plan 32-year-old female patient presenting with a strong family history of breast cancer including her mother from breast cancer the age of 43. Patient was determined to be at high risk for breast cancer with a calculated Tyrer-Cuzick remaining lifetime risk of breast cancer of 34 %. Previous examination revealed no suspicious findings in either breast. Her most recent mammogram of 07/28/2022 revealed no mammographic evidence of malignancy. Genetic testing revealed no clinically significant mutations identified. No variance of uncertain significance were identified as well. Breast MRI obtained on 03/01/2023 revealed no MR specific evidence of malignancy (BI-RADS 1 bilaterally). She should return in 6 months for follow-up breast examination. She is due for an annual mammogram in July 2023. Coding Level of Care Code Est Pt Level 3 (47309) Diagnoses At high risk for breast cancer Z91.89 Family history of breast cancer Z80.3
[2023-03-15 08:57] VITALS: BP 140/78; PULSE 71; BMI 36.1
== END 2023-03-15 09:12 | disposition home or self-care (01) ==
PROVIDERS: PCP Nurse Practitioner Family; Visit Provider Surgery
DX: Z80.3 Family history of malignant neoplasm of breast (principal); Z91.89 Other specified personal risk factors, not elsewhere classified
CPT/HCPCS: 99213

== ENCOUNTER → 2023-03-15 08:46 | Outpatient (BNVA) | payer MEDICAID, SELFPAY | PROVIDERS: PCP Nurse Practitioner Family; Visit Provider Surgery | DX: Z91.89 Other specified personal risk factors, not elsewhere classified (principal); Z80.3 Family history of malignant neoplasm of breast | CPT/HCPCS: 99212 ==

== ENCOUNTER 2023-05-05 17:42 | Outpatient (REF) | payer MEDICAID, SELFPAY ==
[2023-05-06 14:48] LABS: C. trachomatis RNA TMA NOT DETECTED (NOT DETECTED); Candida glabrata RNA NOT DETECTED (NOT DETECTED); Candida species RNA NOT DETECTED (NOT DETECTED); N. gonorrhoeae RNA TMA NOT DETECTED (NOT DETECTED); Trichomonas vaginalis RNA NOT DETECTED (NOT DETECTED)
[2023-05-11 03:29] LABS: HPV mRNA E6/E7 rflx Not Detected (Not Detected)
== END 2023-05-05 17:43 | disposition home or self-care (01) ==
LOC: HO.HHCLNP 17:42
PROVIDERS: Visit Provider Advanced Practice Midwife
DX: Z01.419 Encounter for gynecological examination (general) (routine) without abnormal findings (principal); N93.0 Postcoital and contact bleeding
CPT/HCPCS: 36415; 81513; 87481; 87491; 87591; 87624; 87661; 88142

== ENCOUNTER 2023-06-15 13:57 | Outpatient (AMB) | payer MEDICAID, SELFPAY ==
--- NOTE | 2023-06-15 13:57 | MHC.OFFVIS ---
Vital Signs 06/15/23 14:04 Height 5 ft 5 in Weight 216 lb 0.848 oz BMI 35.9 BP 118/70 Intake Visit Reasons: Bartholin cyst Maintainability Engineer Required: No Information Interpreted: non-clinical & clinical Funeral Home Director: Funeral Home Director Present (Beulah Pineda RAFAEL) Accompanied by: Self / Same As Patient Allergies medroxyprogesterone [Depo-Provera] Allergy (Intermediate, Verified 06/15/23 14:06) hives Is last menstrual period known: No (mirena) HPI Comments Details: Presenting complaining of a right vulvar swelling [facility] Medical History NAFLD (nonalcoholic fatty liver disease) Surgical History No pertinent past surgical history Family History Paternal Grandfather Liver problem Mother Breast cancer, Onset Age: 43 Maternal Aunt Breast cancer Paternal Aunt Breast cancer Social History Household Members: Significant Other Alcohol intake: never Patient Tobacco Use Status: Never used Tobacco Current occupational status: employed Current occupation: [employer] Female Reproductive History Menstrual Age of Menarche: 12 Review of Systems Const All systems reviewed & are unremarkable except as noted in HPI and below Physical Exam Vital Signs: Last Vital Signs BP 118/70 06/15/23 14:04 BMI result Body Mass Index 35.9 General: Yes no CVA tenderness External Female Exam: normal appearance of the urethra and other (Right Bartholin's gland cyst enlargement) Speculum Exam - Vagina: normal appearance of the vagina, normal palpation, no lesions and no masses Speculum Exam - Cervix: normal appearance of the cervix, normal palpation, no lesions, no masses and nontender Bimanual exam- vagina & uterus: normal bimanual exam, normal palpation, uterine size normal, normal palpation, uterine shape normal, No Cervical tenderness present and non-tender Bimanual Exam- Adnexa, other: normal adnexae Back/Spine/Pelvis Back: no CVA tenderness Office Procedures Incision/Drainage TELEPHOTO INSTALLER Incision/Drainage TELEPHOTO INSTALLER Details: Bartholin I & D with Word Catheter insertion Indication: Right labial Bartholin's gland cyst. Prep: the skin was cleaned with Betadine. Anesthesia: 3 cc of Xylocaine was used for anesthesia Guidance: palpation was used for guidance. Technique: a nicking incision was made in the skin, using an 11-blade to incise the cyst, and word catheter was advanced into the cyst cavity . Yield: 3 cc came out. The fluid was blood-tinged. Result: This substantially decompressed the swelling. Dressing: a clean dressing was placed. Tolerance: The patient tolerated the procedure well. Disposition: The patient was sent home in stable condition. Before the procedure was started d/w patient the procedure, alternatives (do nothing), & all the risks associated with the procedure (bleeding , infection, scar tissue development, chronic dyspareunia, injury to bladder, vessels, bowels, possible need for transfusion with all its risks) then patient signed the consent and At the end the patient was instructed to schedule a 4 week follow-up appointment and call if temp>100.4, abdominal pain, n/v. 18584-U&D of Bartholin gland abscess All charges added?: Procedure code (CPT) selection complete Assessment & Plan Assessment & Plan (1) Bartholin gland cyst: Code(s): N75.0 - Cyst of Bartholin's gland Category: Medical Plan: Discussed with the patient the finding on pelvic exam showing a right Bartholin's gland cyst, recommended I and D with word catheter insertion, done, see procedure note Orders: Orders Incision & Drainage TELEPHOTO INSTALLER Today N75.0 - Cyst of Bartholin's gland Coding Level of Care Code Procedure Only Diagnoses Bartholin gland cyst N75.0 CPT Codes Incision/Drainage TELEPHOTO INSTALLER - [id number]: 98354-H&D of Bartholin gland abscess ([id number])
[2023-06-15 14:04] VITALS: BP 118/70; BMI 35.9
== END 2023-06-15 14:27 | disposition home or self-care (01) ==
PROVIDERS: PCP Nurse Practitioner Family; Visit Provider Obstetrics & Gynecology
DX: N75.0 Cyst of Bartholin's gland (principal); Z32.02 Encounter for pregnancy test, result negative
CPT/HCPCS: 56420

== ENCOUNTER 2023-06-15 13:57 | Outpatient (REF) | payer MEDICAID, SELFPAY | END 2023-06-15 13:58 | disposition home or self-care (01) | LOC: HO.LNP 13:57 | PROVIDERS: PCP Nurse Practitioner Family; Visit Provider Obstetrics & Gynecology | DX: N75.0 Cyst of Bartholin's gland (principal) | CPT/HCPCS: 56420; 81025; 87070; 87205 ==

== ENCOUNTER 2023-06-30 16:36 | Outpatient (REF) | payer MEDICAID, SELFPAY ==
[2023-06-30 18:15] LABS: Bacterial Vaginosis PCR POSITIVE (Negative); Candida Group PCR DETECTED (Not Detect); Candida glab krusei PCR NOT DETECTED (Not Detect); Trichomonas vaginalis PCR NOT DETECTED (Not Detect)
[2023-07-01 05:47] LABS: CT PCR NOT DETECTED (Not Detect.); NG PCR NOT DETECTED (Not Detect.)
[2023-07-05 08:09] LABS: C. Trachomatis RNA TMA, Throat NOT DETECTED; N. gonorrhoeae RNA TMA, Throat NOT DETECTED
== END 2023-06-30 16:37 | disposition home or self-care (01) ==
LOC: HO.HHCLNP 16:36
PROVIDERS: Visit Provider Advanced Practice Midwife
DX: Z11.3 Encounter for screening for infections with a predominantly sexual mode of transmission (principal)
CPT/HCPCS: 0352U; 0353U; 87491; 87591

== ENCOUNTER 2023-07-05 11:57 | Outpatient (REF) | payer MEDICAID, SELFPAY | END 2023-07-05 11:58 | disposition home or self-care (01) | LOC: HO.HHCLNP 11:57 | PROVIDERS: Visit Provider Nurse Practitioner Family | DX: R30.0 Dysuria (principal) | CPT/HCPCS: 87086; 87088; 87186 ==

== ENCOUNTER → 2023-08-03 12:30 | Outpatient (BNV) | payer MEDICAID, SELFPAY | PROVIDERS: Visit Provider Radiology Diagnostic Radiology | DX: Z12.31 Encounter for screening mammogram for malignant neoplasm of breast (principal) | CPT/HCPCS: 77063; 77067 ==

== ENCOUNTER 2023-08-03 12:36 | Outpatient (REF) | payer MEDICAID, SELFPAY ==
--- NOTE | ~2023-08-03 | MM_ITS ---
EXAMINATION: MM SCREENING DIGITAL MAMMOGRAPHY, BILATERAL CLINICAL INFORMATION: Screening. Asymptomatic. COMPARISON: Mammography: This study is compared with prior imaging dating back to 2022. TECHNIQUE: Digital mammography is performed in craniocaudal and mediolateral oblique views along with computer-aided detection (CAD). FINDINGS: There are scattered areas of fibroglandular density (ACR BI-RADS breast composition Category b). There are no significant masses, abnormal calcifications, or other abnormalities. MM/MM screening mammo BI IMPRESSION: There are no significant changes from prior study. ASSESSMENT: BI-RADS BI-RADS 1 - Negative RECOMMENDATION: Routine annual mammography screening. 1 year F/U This patient's information was entered into a reminder system with a target due date for their next mammogram.
== END 2023-08-03 12:37 | disposition home or self-care (01) ==
LOC: HO.MAMMO 12:36
PROVIDERS: Visit Provider Surgery
DX: Z12.31 Encounter for screening mammogram for malignant neoplasm of breast (principal)
CPT/HCPCS: 77063; 77067

== ENCOUNTER 2023-08-20 15:30 | Emergency (ER) | payer MEDICAID, SELFPAY ==
[2023-08-20 15:46] VITALS: BP 109/56; PULSE 65; RESP 18; TEMP 36.3; O2SAT 99; BMI 32.5
--- NOTE | 2023-08-20 15:47 | ED.GENADULT ---
HPI - General Adult General Chief complaint: Wound/Laceration Stated complaint: Leg lac Time Seen by Provider: 08/20/23 16:36 Source: patient Mode of arrival: ambulatory Limitations: no limitations History of Present Illness HPI narrative: Patient is a 33-year-old female presents emergency department for evaluation of a right lower extremity laceration over the anterior tibia sustained from a piece of metal in her backyard yesterday. Reports last tetanus vaccination approximately 2-3 years ago. Related Data Home Medications ?Medication ?Instructions ?Recorded ?Confirmed levonorgestrel 21 mcg/24 hr (up to intrauterine 07/09/20 03/15/23 8 years) 52 mg intrauterine device (Mirena) valacyclovir 1 gram tablet 1,000 mg PO DAILY 08/24/22 10/05/22 Allergies Allergy/AdvReac Type Severity Reaction Status Date / Time medroxyprogesterone Allergy Intermediate hives Verified 08/20/23 15:49 [Depo-Provera] Review of Systems Review of Systems: Yes all other systems are reviewed and are negative PMFSH Past Medical History Attestation statement: The following information was validated with the patient. Source: old records reviewed Medical History NAFLD (nonalcoholic fatty liver disease) Surgical History No pertinent past surgical history Family History Family History Paternal Grandfather Liver problem Mother Breast cancer, Onset Age: 43 Maternal Aunt Breast cancer Paternal Aunt Breast cancer Social History Social History Household Members: Significant Other Alcohol intake: never Patient Tobacco Use Status: Never used Tobacco Do you have a plan to hurt others: No Plan Current occupational status: employed Current occupation: [employer] Physical Exam ED Vital Signs: Vital Signs - 24 hr 08/20/23 15:46 Temperature 97.4 F Pulse Rate 65 Respiratory Rate 18 Blood Pressure 109/56 L Pulse Oximetry 99 Oxygen Delivery Method Room Air BMI result Body Mass Index 32.5 Appearance: Alert.?Oriented to person, place and time. No acute distress.?Normal affect. Neck: Normal inspection.? Neck supple.?? CVS: Heart sounds normal. Normal heart rate and rhythm.? Pulses normal.?? Respiratory: No respiratory distress.? Lung sounds clear to auscultation bilaterally?? Skin: Skin warm and dry.? Normal skin color.? Right anterior tibial laceration 1.5 cm to the right anterior tibial region, no active bleeding Extremities: No lower extremity edema.? Neuro: Moves all extremities spontaneously. Sensation intact bilaterally. Ambulates with normal steady gait. Procedures Laceration Laceration 1: Site: lower extremity Side (If applicable): right Size (cm): 1.5 Description: linear Depth: simple, single layer Local Anesthetic: lidocaine 1% Amount of anesthesia used (mL): 2 Pre-repair: wound explored, irrigated extensively and deep structures intact Skin layer closed with: nylon Size (cm): 5-0 Number of sutures: 3 Technique: simple, interrupted Medical Decision Making Medical Decision Making MDM Narrative: Patient is a 33-year-old female who presents emergency department for evaluation of an accidental laceration to the right lower extremity as per HPI. Overall appears well. No signs of local infection at this time. Extremity is neurovascularly intact distally. Wound was irrigated extensively with normal saline and Betadine, repaired under aseptic technique as per procedural portion of this note. No bony tenderness to suggest acute osseous involvement, have low suspicion for any acute fracture, XR was deferred. Stable for discharge home Differential Diagnosis Differential Diagnoses: The differential diagnosis associated with the presentation includes (See narrative above) Independent Historian Clinical information obtained from an independent historian. History obtained from or confirmed by: Spouse Tests considered The following testing was considered but not selected: See narrative above Prescription Management I considered prescription management with: Pain Medication (Acetaminophen/ibuprofen) Discharge Plan Discharge Clinical Impression: Laceration Patient Disposition: Home, Self-Care Instructions: Laceration (ED) Additional Instructions: Return in 8-10 days to have the sutures removed. This may be done in the primary care office or you may return to the emergency department. Monitor for any signs of infection including redness, swelling, pus-like drainage, fevers, chills, increasing pain. Follow-up primary care provider as needed Prescriptions: No Action Mirena 20 mcg/24 hours (6 yrs) 52 mg intrauterine device intrauterine valacyclovir 1 gram tablet 1,000 mg PO DAILY Print Language: Pashto
[2023-08-20] MEDS: Lidocaine HCl 1 % MPF 5 ML VIAL SUBCUT (17:04)
[2023-08-20 17:09] VITALS: BP 00/00; PULSE 0; RESP 0; TEMP -17.7; TEMP 0
== END 2023-08-20 17:10 | disposition home or self-care (01) ==
PROVIDERS: Emergency Provider Internal Medicine; PCP Nurse Practitioner Family
DX: S81.811A Laceration without foreign body, right lower leg, initial encounter (principal); W26.8XXA Contact with other sharp object(s), not elsewhere classified, initial encounter; Y93.9 Activity, unspecified; Y92.007 Garden or yard of unspecified non-institutional (private) residence as the place of occurrence of the external cause; Y99.9 Unspecified external cause status
CPT/HCPCS: 12001; 99282; 99284

== ENCOUNTER 2023-09-20 10:51 | Outpatient (AMB) | payer MEDICAID, SELFPAY ==
--- NOTE | 2023-09-20 11:00 | A.OFFVIS_ITS ---
Vital Signs 09/20/23 11:01 Height 5 ft 5 in Weight 194 lb 0.108 oz BMI 32.3 Intake Visit Reasons: vaginal check Manager Supply Chain Required: No Information Interpreted: non-clinical & clinical Ophthalmic Dispenser: Ophthalmic Dispenser Present (Beulah HALL) Accompanied by: Significant Other Allergies medroxyprogesterone [Depo-Provera] Allergy (Intermediate, Verified 09/20/23 11:03) hives Is last menstrual period known: No (mirena) Post menopausal: No Patient : No Do you need a note to return to daycare/school/sports/work: Yes (for surgery on tuesday) HPI Comments Details: Presenting with recurrence of right Bartholin's gland cyst that is tender. The patient had for Bartholin's gland cyst enlargement recently [facility] Medical History NAFLD (nonalcoholic fatty liver disease) Surgical History No pertinent past surgical history Family History Paternal Grandfather Liver problem Mother Breast cancer, Onset Age: 43 Maternal Aunt Breast cancer Paternal Aunt Breast cancer Social History Household Members: Significant Other Alcohol intake: never Patient Tobacco Use Status: Never used Tobacco Current occupational status: employed Current occupation: [employer] Female Reproductive History Menstrual Age of Menarche: 12 Date of last menstrual period: 12/06/19 Total pregnancies: 2 Full term: 2 Review of Systems Const All systems reviewed & are unremarkable except as noted in HPI and below Card Reports as per HPI and Reports no additional complaints Resp Reports as per HPI and Reports no additional complaints GI Reports as per HPI and Reports no additional complaints Reports as per HPI Physical Exam Vital Signs: BMI result Body Mass Index 32.3 Const General: cooperative, healthy appearing and comfortable Resp Effort & Inspection: normal respiratory effort Auscultation: clear to auscultation bilaterally Percussion: percussion normal Cardio Palpation: normal PMI Rate: regular rate Rhythm: regular rhythm Heart sounds: no murmurs and no rubs Peripheral pulses: Peripheral pulses 2+ throughout GI Inspection: Yes normal to inspection Palpation (GI): Soft to palpation, nontender, no guarding, not rigid and No hepatosplenomegaly present Percussion: Yes normal to percussion Auscultation: normal bowel sounds Rectal Exam - Female: deferred General: Yes no CVA tenderness External Female Exam: normal appearance of the urethra and other (Right Bartholin's gland enlargement) Speculum Exam - Vagina: normal appearance of the vagina, normal palpation, no lesions and no masses Speculum Exam - Cervix: normal appearance of the cervix, normal palpation, no lesions, no masses and nontender Bimanual exam- vagina & uterus: normal bimanual exam, normal palpation, uterine size normal, normal palpation, uterine shape normal, No Cervical tenderness present and non-tender Bimanual Exam- Adnexa, other: normal adnexae Back/Spine/Pelvis Back: no CVA tenderness Assessment & Plan Assessment & Plan (1) Bartholin gland cyst: Comment: Recurrent right Code(s): N75.0 - Cyst of Bartholin's gland Category: Medical Plan: Discussed with the patient the finding on pelvic exam showing right Bartholin's gland cyst enlargement, since this is the 4th recurrence, recommended marsupialization versus I&D. All pros and cons, risks and benefits of each were discussed with the patient, the patient decided to proceed with marsupialization of the right Bartholin's gland cyst. Discussed with the patient the procedure technique, alternative I&D, risks including bleeding, infection, possible need for blood transfusion with all its risks, possible scar tissue development, possible chronic painful intercourse, possible recurrence of Bartholin's gland cyst and risk of injury of the bladder, urethra vagina and rectum and others. All questions answered, the patient verbalized understanding and signed the consent. Coding Level of Care Code Est Pt Level 3 (38876) Diagnoses Bartholin gland cyst N75.0
[2023-09-20 11:01] VITALS: BMI 32.3
== END 2023-09-20 13:38 | disposition home or self-care (01) ==
PROVIDERS: PCP Nurse Practitioner Family; Referring Provider Nurse Practitioner Family; Visit Provider Obstetrics & Gynecology
DX: N75.0 Cyst of Bartholin's gland (principal)
CPT/HCPCS: 99213

== ENCOUNTER → 2023-09-20 10:51 | Outpatient (BNVA) | payer MEDICAID, SELFPAY | PROVIDERS: PCP Nurse Practitioner Family; Visit Provider Obstetrics & Gynecology | DX: N75.0 Cyst of Bartholin's gland (principal) | CPT/HCPCS: 99212 ==

== ENCOUNTER 2023-09-23 11:42 | Day surgery (SDC) | payer MEDICAID, SELFPAY ==
--- NOTE | 2023-09-22 08:39 | HO.ANESPROP2 ---
Documented by User: Ramonita Leigh NP 09/22/23 08:39 HPI - Anesthesia Eval Consult details Narrative: 33yo F for Bartholin Cyst Marsupialization PMFSH Active Problems Active Problems: All Active Problems Family history of breast cancer (Acute) At high risk for breast cancer (Acute) Microscopic hematuria (Acute) Dyspareunia (Acute) Bartholin gland cyst (Acute) NAFLD (nonalcoholic fatty liver disease) (Acute) Past Medical History Medical History NAFLD (nonalcoholic fatty liver disease) Family History Family History Paternal Grandfather Liver problem Mother Breast cancer, Onset Age: 43 Maternal Aunt Breast cancer Paternal Aunt Breast cancer Surgical History Surgical History No pertinent past surgical history Social History Social History Household Members: Significant Other Alcohol intake: never Patient Tobacco Use Status: Never used Tobacco Substance Use Type Other:: Last smoked on 09/19/23 Are you DNR?: No Advance Directives: No Advance Directives Information Provided: Yes Current occupational status: employed Current occupation: [employer] Allergies Allergy/AdvReac Type Severity Reaction Status Date / Time medroxyprogesterone Allergy Intermediate hives Verified 09/23/23 12:56 [Depo-Provera] Home Medications ?Medication ?Instructions ?Recorded ?Confirmed ?Last Taken ?Type valacyclovir 1 gram tablet 1,000 mg PO DAILY 08/24/22 09/23/23 Unknown History Assessment and Plan Assessment Anesthesia Assessment: Chart Reviewed Documented by User: Yesy Roman MD 09/23/23 13:22 PMFSH Past Medical History Medical History NAFLD (nonalcoholic fatty liver disease) Family History Family History Paternal Grandfather Liver problem Mother Breast cancer, Onset Age: 43 Maternal Aunt Breast cancer Paternal Aunt Breast cancer Surgical History Surgical History No pertinent past surgical history History of Problems with Anesthesia: No Social History Social History Household Members: Significant Other Alcohol intake: never Patient Tobacco Use Status: Never used Tobacco Substance Use Type Other:: Last smoked on 09/19/23 Are you DNR?: No Advance Directives: No Advance Directives Information Provided: Yes Current occupational status: employed Current occupation: [employer] Allergies Allergy/AdvReac Type Severity Reaction Status Date / Time medroxyprogesterone Allergy Intermediate hives Verified 09/23/23 12:56 [Depo-Provera] Home Medications ?Medication ?Instructions ?Recorded ?Confirmed ?Last Taken ?Type valacyclovir 1 gram tablet 1,000 mg PO DAILY 08/24/22 09/23/23 Unknown History Exam Airway Mallampati Class: II TM Dist: >3cm Neck ROM: Full Loose/Missing/Broken Teeth: No Heart: RRR Lungs: CTA Assessment and Plan Assessment Anesthesia Assessment: Anesthesia Plan Discussed Final Anesthetic Review History of Problems with Anesthesia: No NPO: Yes ASA Class: II Final Preanesthetic Review: Meds/Allgs Chart Reviewed, Consent Obtained/Reviewed and Anes Risks/Benef Reviewed Patient Risk: Low Procedure Risk: Low Anesthetic Plan Anesthetic Plan: GA Disposition: Standard PACU
[2023-09-23 12:29] LABS: UPreg QC Valid YES; Urine Pregnancy NEGATIVE (NEGATIVE)
[2023-09-23 12:59] VITALS: BMI 31.1
[2023-09-23 13:16] VITALS: BP 146/87; PULSE 71; RESP 16; TEMP 36.8; O2SAT 98
[2023-09-23] MEDS: Lactated Ringers 1,000 ML 100 ML IVCONT (13:20)
--- NOTE | 2023-09-23 14:08 | MHC.SHP ---
Pre-Procedural Eval Section A - 24 Hr Update-Section A only Date of Service: 09/23/23 The patient is an INPATIENT: No Changes since office visit: No Cold of Flu in the past 2 weeks, No New Medical Problems, No Changes in Medication and No Patient answered all questions The patient has been examined within 24 hours of the surgical procedure. The History & Physical has been completed within 30 days and I have reviewed it.: Yes Section B - Complete if H&P > 30 days Chief Complaint: Cyst of Bartholin's gland Allergies: Allergies Allergy/AdvReac Type Severity Reaction Status Date / Time medroxyprogesterone Allergy Intermediate hives Verified 09/23/23 12:56 [Depo-Provera] Plan Diagnosis/Plan: Unchanged I have reviewed the history and physical and performed a pertinent physical examination on my patient. No changes have occurred unless specified. Time Spent With Patient Time: Total time managing care of this patient today ____ minutes.
--- NOTE | 2023-09-23 14:51 | P.BOP_ITS ---
Brief Operative Note Date of Service: 09/23/23 Pre-op diagnosis: Recurrent right Bartholin's gland cyst Post-op diagnosis: same Procedure: Bartholin's gland marsupialization Surgeon: Hakeem Patel MD Anesthesia: GLMA Was an Employment Agency Manager used for this Procedure?: No Estimated blood loss (mL): 10 Pathology: other (Culture from the drainage) Condition: stable Disposition: PACU
--- NOTE | 2023-09-23 14:54 | P.OP_ITS ---
Operative Note Operative Note Date of Service: 09/23/23 Narrative: Preop diagnosis: Recurrent Right Bartholin's gland cyst Operation: Right Bartholin's gland cyst marsupialization Postop diagnosis: Same Anesthesia: GLMA Estimated blood loss: 10 cc Complications: None Cutter Wet Machine: none Pathology sent: None Culture sent from cyst drainage Procedure: The patient was placed in the dorsal lithotomy position, scrubbed and draped in the usual sterile fashion. A vertical oval incision was made over the center of the cyst where it protrudes at the vestibule and outside the hymenal ring. 10 cc of drainage came out. The cyst cavity was irrigated with saline solution afterwards. The cyst wall was then everted and sutured onto the edge of the vestibular mucosa with interrupted 2.0 Vicryl sutures. Hemostasis was assured. The patient tolerated the procedure well and was transferred to the PACU at the end of the procedure.
[2023-09-23 15:00] VITALS: BP 107/64; PULSE 51; RESP 18; TEMP 36.1; O2SAT 99
[2023-09-23 15:05] VITALS: BP 109/63; PULSE 97; RESP 18; O2SAT 99
[2023-09-23 15:10] VITALS: BP 138/91; PULSE 86; RESP 18; O2SAT 98
[2023-09-23 15:15] VITALS: BP 122/92; PULSE 89; RESP 18; O2SAT 99
[2023-09-23 15:30] VITALS: BP 143/85; PULSE 85; RESP 18; TEMP 37; O2SAT 99
== END 2023-09-23 16:10 | disposition home or self-care (01) ==
PROVIDERS: PCP Nurse Practitioner Family; Visit Provider Obstetrics & Gynecology
PROC: (CPT 56440; principal; 2023-09-23 14:30)
DX: N75.0 Cyst of Bartholin's gland (principal)
CPT/HCPCS: 56440; 81025; 87070; 87147; 87205; J1100; J1885; J2250; J2405; J2704; J3010

== ENCOUNTER → 2023-09-23 11:42 | Outpatient (BNV) | payer MEDICAID, SELFPAY | PROVIDERS: PCP Nurse Practitioner Family; Visit Provider Obstetrics & Gynecology | DX: N75.0 Cyst of Bartholin's gland (principal) | CPT/HCPCS: 56440 ==

== ENCOUNTER 2023-09-25 10:56 | Emergency (ER) | payer MEDICAID, SELFPAY ==
[2023-09-25 11:13] VITALS: BP 138/71; PULSE 58; RESP 18; TEMP 36.8; O2SAT 97; BMI 33.2
--- NOTE | 2023-09-25 11:13 | ED.SKABFB ---
HPI - Skin/Abscess/Foreign Bdy General Chief complaint: Skin/Abscess/Foreign Body Stated complaint: too much bleeding from surgical site Time Seen by Provider: 09/25/23 11:45 Source: patient and RN notes reviewed Mode of arrival: ambulatory Limitations: no limitations History of Present Illness ED Provider: Raquel Roman PA-C HPI narrative: This is a 33-year-old female who presents emergency department with concerns for ongoing bleeding from surgical site. Patient had a right Bartholin gland cyst marsupialization performed by Dr. Jorge vigil on 09/23/2023. Patient states that the procedure well. She states that yesterday she noticed increased bleeding from the area. She states that she went through 4-5 depends yesterday. She states that she awoke this morning and called Dr. Patel who instructed her to come to the emergency room as she should not be bleeding like this. She states that as she took a shower, and 1 pad on, unsure if the bleeding has improved since yesterday. She otherwise is feeling well, not experiencing any dizziness, blurred vision, lightheadedness, chest pain, shortness of breath, painful urination, urinary urgency or frequency. She states that she gets abnormal menses, has not had a menstrual cycle in the years. Relieving factors: none Exacerbating factors: none Context: none Associated symptoms: denies other symptoms Treatments prior to arrival: none Related Data Home Medications ?Medication ?Instructions ?Recorded ?Confirmed valacyclovir 1 gram tablet 1,000 mg PO DAILY 08/24/22 09/23/23 Previous Rx's ?Medication ?Instructions ?Recorded amoxicillin 500 mg tablet 500 mg PO BID 10 days #14 tabs 09/25/23 Allergies Allergy/AdvReac Type Severity Reaction Status Date / Time medroxyprogesterone Allergy Intermediate hives Verified 09/25/23 11:16 [Depo-Provera] Review of Systems Review of Systems: Yes all other systems are reviewed and are negative Constitutional: Constitutional: Reports as per HPI [facility] Past Medical History Medical History NAFLD (nonalcoholic fatty liver disease) Surgical History No pertinent past surgical history Family History Family History Paternal Grandfather Liver problem Mother Breast cancer, Onset Age: 43 Maternal Aunt Breast cancer Paternal Aunt Breast cancer Social History Social History Household Members: Significant Other Unable to assess alcohol history related to: Unknown Alcohol intake: never Patient Tobacco Use Status: Never used Tobacco Current occupational status: employed Current occupation: [employer] Physical Exam Vital Signs: Vital Signs: Last Vital Signs Temp 98.2 F 09/25/23 11:13 Pulse 58 09/25/23 11:13 Resp 18 09/25/23 11:13 BP 138/71 09/25/23 11:13 Pulse Ox 97 09/25/23 11:13 O2 Del Method Room Air 09/25/23 11:13 BMI result Body Mass Index 33.2 Const: General: cooperative, comfortable and no acute distress Orientation/consciousness: patient oriented x3 Limitations: no limitations HEENT: Head: Yes normal to inspection, Yes normocephalic and Yes atraumatic Ears: hearing grossly normal bilaterally General nose exam: Normal external nose present Face and sinus: Yes normal facial exam Mouth: Normal oral and palatal mucosa present, oropharynx normal and moist mucous membranes Throat: Yes posterior oropharynx normal Eyes: General: appearance normal, both eyes and all related structures Eyelids: Yes eyelids normal Conjunctivae: conjunctivae normal Sclerae: sclerae normal Pupils: Equal, round and reactive pupils present EOM: EOMs intact bilaterally Neck: Neck: Yes normal visual inspection, Yes full ROM and Yes no lymphadenopathy Lymphatic: no lymphadenopathy noted Chest: Chest palpation & inspection: normal inspection of the chest Resp: Effort & Inspection: normal respiratory effort and able to speak in complete sentences Auscultation: clear to auscultation bilaterally, no crackles, no rales, no rhonchi and no wheezes Cardio: Rate: regular rate Rhythm: regular rhythm Heart sounds: S1 normal heart sound present and S2 normal heart sound present GI: Inspection: Yes normal to inspection : Other: pelvic examination was performed with Carin South RN present. Right Bartholin region, with packing place, no surrounding erythema, warmth, fluctuance or induration. No active bleeding. Mild amount of bright red blood in vaginal vault, no hemorrhage noted. Speculum Exam - Vagina: normal appearance of the vagina, normal palpation and normal vaginal discharge Speculum Exam - Cervix: normal appearance of the cervix, normal palpation and Cervical os closed Bimanual exam- vagina & uterus: normal palpation and normal palpation Skin: General skin exam: no rashes or lesions noted Trauma: no lacerations or abrasions Wounds: no wounds Neuro: General: patient oriented x3 and moves all extremities Cranial nerves: Yes Equal, round and reactive pupils present Extrem: General: Yes normal to inspection Right upper extremity: normal to inspection Left upper extremity: normal to inspection Right lower extremity: normal to inspection Left lower extremity: normal to inspection Course Course Course Narrative: This is a Rapid Medical Exam performed in triage by Padmini Fitzgerald PA-C. Full HPI, ROS and PE to be performed by primary ED provider. 33 year-old F w/ PMHx NAFL presenting to the ED c/o increased leakage/bleeding from surgical site. Patient had Bartholin Cyst Marsupialization by Dr. Patel on 09/22/23 & was told to come to the ED after speaking to office today. Admits to going through 4-5 adult pull ups yesterday. PE: nontoxic appearing. area not visualized in triage Plan: Labs, UA Reevaluation(s) Reevaluation #1: Pelvic examination was performed, patient is bleeding from her vaginal vault, consistent with a normal menstrual cycle. Patient states that she has not had her menses in many years due to PCOS. No large clots, no hemorrhage noted. Swab was collected as she had BV several months ago, no concerns for sexually transmitted infections. Discussed case with OBGYN, Dr. Patel, given surgical site does not appear to be bleeding, noninfectious, patient follow-up in the office outpatient, and advised to return if bleeding gets worse. She understands and agrees with plan. Vital signs stable, H&H stable, chemistry within normal limits. Patient discharge. Time: 13:14 Medical Decision Making Medical Decision Making MDM Narrative: This is a 33-year-old female who presents emergency department with complaints of bleeding from surgical site. She had a marsupialization of her right Bartholin cyst on Tuesday. She states that she was using 4-5 depends yesterday. She is feeling well otherwise. Vital signs within normal limits, blood work revealing no anemia, chemistry within normal limits. Pelvic examination will be performed to determine where bleeding is coming from. Differential Diagnosis Differential Diagnoses: The differential diagnosis associated with the presentation includes Abnormal uterine bleeding, Bartholin cyst infection, abscess, hemorrhage Lab Data MDM Lab Attestation statement: I reviewed the patient's lab results. No leukocytosis, stable H&H, chemistry within normal limits. 09/25/23 11:28 09/25/23 11:28 Labs: Lab Results 09/25/23 09/25/23 Range/Units 11:27 11:28 WBC 8.3 (4.8-10.8) X10*3/uL RBC 4.30 (4.20-5.50) X10*6/uL Hgb 12.5 (12.0-16.0) g/dl Hct 36.1 L (37.0-47.0) % MCV 84.0 (80.0-98.0) fL MCH 29.1 (27.0-33.0) pg MCHC 34.6 (31.0-35.0) g/dl RDW 12.6 (11.0-16.0) % Plt Count 337 (160-400) X10*3/uL MPV 9.5 (9.4-12.3) fL Immature Gran % (Auto) 0.5 H (0.0-0.4) % Neut % (Auto) 60.3 (45-73) % Lymph % (Auto) 33.5 (20-40) % [place] % (Auto) 4.0 (2-11) % Eos % (Auto) 1.2 (0-4) % Baso % (Auto) 0.5 (0-2) % Lymph # (Auto) 2.8 (1.2-4.9) X10*3/uL [place] # (Auto) 0.3 (0.1-1.2) X10*3/uL Eos # (Auto) 0.1 (0.0-0.4) X10*3/uL Baso # (Auto) 0.0 (0.0-0.2) X10*3/uL Abs Immat Gran (auto) 0.04 H (0.00-0.03) X10*3/uL Absolute Neuts (auto) 5.0 (2.0-8.3) x10*3/uL Absolute Nucleated RBC 0.000 (0.0-0.012) X10*3/uL Nucleated RBC % (auto) 0.0 (0.0-0.2) /100WBC Smear Tech's Comments VERIFIED PT 13.2 (11.1-13.3) SEC INR 1.1 (0.9-1.1) Sodium 142 (135-145) mmol/L Potassium 3.7 (3.3-5.1) mmol/L Chloride 108 (96-108) mmol/L Carbon Dioxide 21 L (22-29) mmol/L Anion Gap 17 (12-20) BUN 12 (9-16) mg/dL Creatinine 0.86 (0.5-1.4) mg/dL Estim Creat Clear Calc 105.2 Estimated GFR > 60 Random Glucose 97 (60-115) mg/dL Calcium 9.9 (8.4-10.2) mg/dL Beta HCG, Quant < 2 mIU/mL Discharge Plan Discharge Clinical Impression: Uterine bleeding Patient Disposition: Home, Self-Care Instructions: Dysfunctional Uterine Bleeding (ED) Additional Instructions: You were seen in the emergency department today. Your surgical site is not bleeding, and does not appear to be infected. It appears that you are bleeding vaginally, consistent with a menstrual cycle. Please follow-up with Dr. Patel he is office outpatient, call tomorrow to make an appointment. You may return if bleeding becomes worse, if you are passing large clots, if you become dizzy or lightheaded. Prescriptions: No Action amoxicillin 500 mg tablet 500 mg PO BID 10 Days Qty: 14 0RF valacyclovir 1 gram tablet 1,000 mg PO DAILY Referrals: [facility] [Provider Group] Print Language: Chinese
[2023-09-25 11:33] LABS: Basophils Percent Auto 0.5 % (0-2); Eosinophils Absolute Auto 0.1 X10*3/uL (0.0-0.4); Eosinophils Percent Auto 1.2 % (0-4); Hematocrit 36.1 % (37.0-47.0); Hemoglobin 12.5 g/dl (12.0-16.0); Imm Gran Abs Auto 0.04 X10*3/uL (0.00-0.03); Imm Gran Pct Auto 0.5 % (0.0-0.4); Lymphocytes Absolute Auto 2.8 X10*3/uL (1.2-4.9); Lymphocytes Percent Auto 33.5 % (20-40); MANUAL DIFF FLAG SCAN; Mean Corpuscular HGB Conc 34.6 g/dl (31.0-35.0); Mean Corpuscular Hemoglobin 29.1 pg (27.0-33.0); Mean Platelet Volume 9.5 fL (9.4-12.3); Monocytes Absolute Auto 0.3 X10*3/uL (0.1-1.2); Neutrophils Percent Auto 60.3 % (45-73); Platelet Count 337 X10*3/uL (160-400); Red Cell Distribution Width 12.6 % (11.0-16.0); SCAN SMEAR FLAG 1
[2023-09-25 11:35] LABS: White Blood Count 8.3 X10*3/uL (4.8-10.8)
--- NOTE | 2023-09-25 11:37 | MHC.EDTECH ---
This tech brought patient back to room. Patient with urine cup. She states she is currently unable to void.
[2023-09-25 11:44] LABS: INTERNATIONAL NORM RATIO 1.1 (0.9-1.1); Prothrombin Time 13.2 SEC (11.1-13.3)
[2023-09-25 11:49] LABS: Anion Gap 17 (12-20); Blood Urea Nitrogen 12 mg/dL (9-16); Calcium 9.9 mg/dL (8.4-10.2); Carbon Dioxide 21 mmol/L (22-29); Chloride 108 mmol/L (96-108); Creatinine Clr Calc Pharmacy 105.2; Estimated Glomerular Filt Rate > 60; Glucose Random 97 mg/dL (60-115); Potassium 3.7 mmol/L (3.3-5.1); Sodium 142 mmol/L (135-145)
[2023-09-25 12:10] LABS: SLIDE REVIEW VERIFIED
[2023-09-25 12:18] LABS: HCG Quantitative < 2 mIU/mL
--- NOTE | 2023-09-25 13:02 | MHC.EDTECH ---
Attempted to collect urine sample. Patient states unable to void.
[2023-09-25 13:25] VITALS: BP 116/81; PULSE 67; RESP 14; TEMP 36.6; O2SAT 100
[2023-09-25 14:05] LABS: Bacterial Vaginosis PCR POSITIVE (Negative); Candida Group PCR NOT DETECTED (Not Detect); Candida glab krusei PCR NOT DETECTED (Not Detect); Trichomonas vaginalis PCR NOT DETECTED (Not Detect)
== END 2023-09-25 13:26 | disposition home or self-care (01) ==
PROVIDERS: Physician Assistant; Physician Assistant Medical; Emergency Provider Emergency Medicine
DX: N93.8 Other specified abnormal uterine and vaginal bleeding (principal); N92.0 Excessive and frequent menstruation with regular cycle; Z79.899 Other long term (current) drug therapy
CPT/HCPCS: 0352U; 36415; 80048; 84702; 85025; 85610; 99283; 99284

== ENCOUNTER 2023-10-11 13:08 | Outpatient (AMB) | payer MEDICAID, SELFPAY ==
--- NOTE | 2023-10-11 13:21 | MHC.OFFVIS ---
Vital Signs 10/11/23 13:22 Height 5 ft 5 in Weight 198 lb 6.656 oz BMI 33.0 Intake Visit Reasons: post op Senior Safety Support Manager Required: No Information Interpreted: non-clinical & clinical Accompanied by: Daughter Allergies medroxyprogesterone [Depo-Provera] Allergy (Intermediate, Verified 09/25/23 11:16) hives HPI Comments Details: Presenting 2 weeks post Bartholin gland marsupialization for recurrent Bartholin's gland cyst, doing well with no complaint no perineal pain discharge fever or chills. Culture grew group B strep, amoxicillin course was completed [facility] Medical History NAFLD (nonalcoholic fatty liver disease) Surgical History No pertinent past surgical history Family History Paternal Grandfather Liver problem Mother Breast cancer, Onset Age: 43 Maternal Aunt Breast cancer Paternal Aunt Breast cancer Social History Household Members: Significant Other Unable to assess alcohol history related to: Unknown Alcohol intake: never Patient Tobacco Use Status: Never used Tobacco Current occupational status: employed Current occupation: [employer] Female Reproductive History Menstrual Age of Menarche: 12 Review of Systems Const All systems reviewed & are unremarkable except as noted in HPI and below Reports as per HPI and Reports no additional complaints GI Reports no additional complaints Reports no additional complaints Physical Exam Vital Signs: BMI result Body Mass Index 33.0 Assessment & Plan Assessment & Plan (1) Bartholin gland cyst: Comment: Recurrent right status post marsupialization Code(s): N75.0 - Cyst of Bartholin's gland Category: Medical Plan: Discussed with the patient the intraoperative findings, the culture recommended for the patient to call back in case of recurrence of recurrence of her Bartholin's gland cyst. All questions answered, the patient verbalized understanding Coding Level of Care Code Est Pt Level 3 (85762) Diagnoses Bartholin gland cyst N75.0
[2023-10-11 13:22] VITALS: BMI 33.0
== END 2023-10-11 15:36 | disposition home or self-care (01) ==
LOC: HO.HWS 13:08
PROVIDERS: Visit Provider Obstetrics & Gynecology
DX: N75.0 Cyst of Bartholin's gland (principal); Z32.02 Encounter for pregnancy test, result negative
CPT/HCPCS: 99213

== ENCOUNTER → 2023-10-11 13:08 | Outpatient (BNVA) | payer MEDICAID, SELFPAY | PROVIDERS: Visit Provider Obstetrics & Gynecology | DX: N75.0 Cyst of Bartholin's gland (principal); Z32.02 Encounter for pregnancy test, result negative | CPT/HCPCS: 81025; 99212 ==

== ENCOUNTER 2023-10-13 11:08 | Outpatient (REF) | payer MEDICAID, SELFPAY ==
[2023-10-13 14:07] LABS: HCG Quantitative < 2 mIU/mL
== END 2023-10-13 11:09 | disposition home or self-care (01) ==
LOC: HO.HHCL 11:08
PROVIDERS: Visit Provider Nurse Practitioner
DX: Z32.00 Encounter for pregnancy test, result unknown (principal)
CPT/HCPCS: 36415; 84702

== ENCOUNTER 2024-03-30 11:43 | Outpatient (REF) | payer MEDICAID, SELFPAY ==
--- OUTSIDE RECORDS SUMMARY | 2024-03-30 12:45 | XMS_ITS | Encounter Summary ---
Author Organization [employer] Address [address] [place] [address] [address] [place] [address] Care Team Providers Care Special Education Teacher Name Role Phone She Rodriguez Primary Care Provider [phone] Elmira Desouza NP Primary Care Provider [phone] Marcello Hyde FOOD SERVICE COUNTER CLERK Primary Care Provider [phone] Reason for Visit * Reason Onset Date Comments Appointment Request 02/01/2023 Encounter Details Date Type Department Care Team (Late st Contact Info) Description 02/01/2023 Telephone [facility] [address] [place], [place] [phone] She Rodriguez FNP [address] [place], [place] [phone] Appointment Request Social History Tobacco Use Types Packs/Day Years Used Date Smoking Tobacco: Never Passive Smoke Exposure: Never Smokeless Tobacco: Never Alcohol Use Standard Drinks/Week Comments Yes 0 (1 standard drink = 0.6 oz pur e alcohol) occasional / social Depression Answer Date Recorded Patient Health Questionnaire-9 Score 14 07/02/2022 Housing Stability Answer Date Recorded What is your housing situation today? I have aliyah blackwell 11/29/[address] you li ve. Do you have problems with any of the following? None of the above 11/29/2022 Food Insecurity Answer Date Recorded Within the past 12 months, y ou worried that your food would run out before you got money to buy more: Never True 11/29/2022 Within the past 12 months,th e food you bought just didn't last and you didn't have enough money to get more: Never True Transportation Answer Date Recorded In the past 12 months, has l ack of transportation kept you from medical appts, meetings, work or from getting things needed for daily living? No 11/29/2022 Utilities Answer Date Recorded In the past 12 months, has t he electric, gas, oil or water company threatened to shut off services in your home? No 11/29/2022 Depression Answer Date Recorded Patient Health Questionnaire-2 Score 6 07/02/2022 Comments Unknown Sex and Gender Information Value Date Recorded Sex Assigned at Female 12/07/2021 10:17 AM EDT Legal Sex Female 10:17 AM EDT Gender Identity Female 12/07/2021 10:17 AM EDT Sexual Orientation Straight 12/07/2021 10 :17 AM EDT documented as of this encounter Miscellaneous Notes * Telephone Encounter - Damaris Lozano - 02/01/2023 9:31 AM EST Tc from pt requesting to get a PAP smear scheduled. Please contact pt at [phone] documented in this encounter Plan of Treatment Upcoming Encounters Date Type Department Care Team (Late st Contact Info) Description 05/02/2024 2:45 PM EDT Office Visit [facility] [address] [place] [phone] Marcello Hyde, [place] [address] [place] [address] 05/10/2024 1:45 PM EDT Office Visit [facility] [address] [place] [phone] Sindhu Lipscomb CNM [address] [place] [address] 06/28/2024 1:00 PM EDT Office Visit [facility] [address] [place] [phone] Danielle Adams [address] [place] [address] documented as of this encounter Visit Diagnoses Not on filedocumented in this encounter Additional Health Concerns Assessment Noted Time PHQ-9 Depression Total Score: 14 023 9:01 AM EDT documented as of this encounter Care Teams Special Education Teacher Relationship Specialty Start Date End Date She Rodriguez FNP [address] [place] [address] PCP - General Family Medicine 02/04/22 10/10/23 Elmira Desouza NP [address] [place] [address] PCP - General Family Medicine 10/11/23 02/23/24 Marcello Hyde CNP [address] [place] [address] PCP - General Family Medicine 02/24/24 documented as of this encounter
--- OUTSIDE RECORDS SUMMARY | 2024-03-30 12:45 | XMS_ITS | Encounter Summary ---
Author Organization [employer] Address [address] [facility] [address] [place] [address] Care Team Providers Care Computer Support Analyst Name Role Phone She Rodriguez Primary Care Provider [phone] Elmira Desouza NP Primary Care Provider [phone] Marcello Hyde CNP Primary Care Provider [phone] Reason for Visit * Reason Comments Med Refill Encounter Details Date Type Department Care Team (Late st Contact Info) Description 02/10/2023 Refill [facility] [address] [place] [address] Elliot Olvera FNP Acute left-sided low back pain with left-sided sciatica Social History Tobacco Use Types Packs/Day Years Used Date Smoking Tobacco: Never Passive Smoke Exposure: Never Smokeless Tobacco: Never Alcohol Use Standard Drinks/Week Comments Yes 0 (1 standard drink = 0.6 oz pur e alcohol) occasional / social Depression Answer Date Recorded Patient Health Questionnaire-9 Score 14 07/02/2022 Housing Stability Answer Date Recorded What is your housing situation today? I have aliyahshabana blackwell 11/29/[address] you [...] AM EDT documented as of this encounter Plan of Treatment Upcoming Encounters Date Type Department Care Team (Late st Contact Info) Description 05/02/2024 2:45 PM EDT Office Visit [facility] [address] [place] [phone] Marcello Hyde, BAND NAILER [address] [place] [address] 05/10/2024 1:45 PM EDT Office Visit [facility] [address] [place] [address] Sindhu Lipscomb CNM [address] [place] [address] 06/28/2024 1:00 PM EDT Office Visit [facility] [address] [place] [address] Danielle Adams [address] [place] [address] documented as of this encounter Visit Diagnoses Diagnosis Acute left-sided low back pain with left-sided sciatica documented in this encounter Additional Health Concerns Assessment Noted Time PHQ-9 Depression Total Score: 14 023 9:01 AM EDT documented as of this encounter Care Teams Computer Support Analyst Relationship Specialty Start Date End Date She Rodriguez FNP [address] [place] [phone] PCP - General Family Medicine 02/04/22 10/10/23 Elmira Desouza NP [address] [place] [address] PCP - General Family Medicine 10/11/23 02/23/24 Marcello Hyde CNP [address] [place] [address] PCP - General Family Medicine 02/24/24 documented as of this encounter
--- OUTSIDE RECORDS SUMMARY | 2024-03-30 12:45 | XMS_ITS | Encounter Summary ---
Author Organization [employer] Address [address] [place] [address] [place] [address] Care Team Providers Care Tree Scout Name Role Phone Marcello Hyde CNP Primary Care Provider [phone] Reason for Referral * Consultation (Routine) - Pending Review Specialty Diagnoses / Procedures Referred By Cory hardy Referred To Contact Obstetrics and Gynecology Diagnoses Less than 8 weeks gestation of Marcello Hyde CNP [address] [place] [address] Phone: tel: fax: Referral ID Status Reason Start Date Expiration Date Visits Requested Visits Authorized [id number] Pending Review Specialty Services Required 03/30/2024 03/30/2025 1 1 * Consultation (Routine) - Authorized Specialty Diagnoses / Procedures Referred By Cory hardy Referred To Contact Protective Signal Repairer Diagnoses Housing instability Marcello Hyde CNP [address] [place] [address] Phone: tel: fax: Referral ID Status Reason Start Date Expiration Date Visits Requested Visits Authorized [id number] Authorized Specialty Services Required 03/30/2024 03/30/2025 1 1 Reason for Visit * Reason Comments OV Encounter Details Date Type Department Care Team ([facility] st Contact Info) Description 03/28/2024 3:15 PM EST Office Visit [facility] MEDICINE [address] [place] [address] HydeMarcello, DRY GOODS CLERK [address] [place] [address] Less than 8 weeks gestation of (Primary Dx); Nausea; Healthcare maintenance; Housing instability Social History Tobacco Use Types Packs/Day Years Used Date Smoking Tobacco: Never Passive Smoke Exposure: Never Smokeless Tobacco: Never Alcohol Use Standard Drinks/Week Comments Yes 0 (1 standard drink = 0.6 oz pur e alcohol) occasional / social Depression Answer Date Recorded Patient Health Questionnaire-9 Score 15 07/01/2023 Patient Health Questionnaire-9 Score 15 07/01/2023 Last PHQ-9: Questionnaire Data Not on file 0 07/01/2023 Housing Stability Answer Date Recorded What is [...] got money to buy more: Never True 05/25/2023 Within the past 12 months,th e food [...] Date Recorded Patient Health Questionnaire-2 Score 6 07/01/2023 Comments Yes Sex and Gender Information Value Date Recorded Sex Assigned at Female 12/07/2021 10:17 AM EDT Legal Sex Female 10:17 AM EDT Gender Identity Female 12/07/2021 10:17 AM EDT Sexual Orientation Straight 12/07/2021 10 :17 AM EDT documented as of this encounter Last Filed Vital Signs Vital Sign Reading Time Taken Comments Blood Pressure 137/83 03/28/2024 3:11 PM EST Pulse 69 03/28/2024 3:11 PM EST Temperature 36.8 ??C (98.2 ??F) 03/28/2024 3:11 PM ES T Respiratory Rate 16 03/28/2024 3:11 PM EST Oxygen Saturation 99% 03/28/2024 3:11 PM EST Inhaled Oxygen Concentration - - Weight 94.4 kg (208 lb 3.2 oz) 03/28/2024 3:11 P M EST Height - - Body Mass Index 35.74 07/05/2023 5:33 PM EDT documented in this encounter Progress Notes * Marcello Hyde, MINERVA - 03/28/2024 3:15 PM EST Subjective: Machelle Aleman is a 33 y.o. female who presents with her partner to the office for a new patient visit. Pt reports she is feeling well, reports intermittent nausea, denies vomiting. Denies abdominal pain, vaginal bleeding, or cramping. She reports that she is in a supportive relationship, her and her partner want to move forward withthe . She says she is unsure about an OBGYN but is leaning towards going to [employer] as her partner used to work there. Interim history: PAP NIL/HPV neg 04/2023 Current concerns: , last 7-8 years ago, was a termination LMP: 02/18/2024, 5 weeks 4 days Reporting nausea, breast tenderness, having some tenderness in pelvic area. Patient Active Problem List Diagnosis Allergic rhinitis due to pollen Dorsalgia of lumbosacral region Bradycardia Candidiasis External hemorrhoids Chronic thoracic back pain Dental calculus Moderate episode of recurrent major depressive disorder (CMS/HCC) AMBROSE (generalized anxiety disorder) Acute stress disorder Influenza B Rectal hemorrhage Less than 8 weeks gestation of Nausea Healthcare maintenance Housing instability No past surgical history on file. Family History Problem Relation Name Age of Onset Breast cancer Mother passed from breast cancer age 43 Alzheimer's disease Maternal Grandmother Positive family hx for thyroid disodrer maternal aunt Positive family hx for DM Social History Living situation: renting a room right now, looking to change situation Employment/Education: [employer] Diet/exercise: Started going back to the gym Substance use: -alcohol : has drank in the past, quit since positive test -tobacco : none -opioids none Mental health: Patient Health Questionnaire-9 Score: 15 (07/01/2023 8:49 AM) Patient Health Questionnaire-2 Score: 6 (07/01/2023 8:49 AM) Thoughts that you would be better off or hurting yourself in some way: Not at all (07/01/2023 8:49 AM) AMBROSE-7 Total Score: 18 (07/01/2023 8:50 AM) Allergies Allergen Reactions Medroxyprogesterone Review of Systems Constitutional: Negative for appetite change, chills, diaphoresis, fatigue, fever and unexpected weight change. Respiratory: Negative for apnea, cough, chest tightness, shortness of breath and wheezing. Cardiovascular: Negative for chest pain and palpitations. Gastrointestinal: Negative for abdominal distention, abdominal pain, blood in stool, constipation, diarrhea, nausea and vomiting. Skin: Negative for pallor. Neurological: Negative for dizziness, syncope, speech difficulty, weakness, light-headedness, numbness and headaches. Vitals: 03/28/24 1511 BP: 137/83 Pulse: 69 Resp: 16 Temp: 98.2 ??F (36.8 ??C) TempSrc: Oral SpO2: 99% Weight: 208 lb 3.2 oz (94.4 kg) Physical Exam Constitutional: General: She is not in acute distress. Appearance: Normal appearance. She is not ill-appearing. HENT: Head: Normocephalic and atraumatic. Right Ear: Tympanic membrane, ear canal and external ear normal. There is no impacted cerumen. Left Ear: Tympanic membrane, ear canal and external ear normal. There is no impacted cerumen. Nose: No congestion or rhinorrhea. Mouth/Throat: Mouth: Mucous membranes are moist. Pharynx: No oropharyngeal exudate or posterior oropharyngeal erythema. Eyes: General: No scleral icterus. Right eye: No discharge. Left eye: No discharge. Extraocular Movements: Extraocular movements intact. Pupils: Pupils are equal, round, and reactive to light. Cardiovascular: Rate and Rhythm: Normal rate and regular rhythm. Pulses: Normal pulses. Heart sounds: Normal heart sounds. No murmur heard. No friction rub. No gallop. Pulmonary: Effort: Pulmonary effort is normal. No respiratory distress. Breath sounds: Normal breath sounds. No stridor. No wheezing, rhonchi or rales. Chest: Chest wall: No tenderness. Abdominal: General: Abdomen is flat. Bowel sounds are normal. There is no distension. Palpations: Abdomen is soft. There is no mass. Tenderness: There is no abdominal tenderness. There is no guarding. Musculoskeletal: General: Normal range of motion. Cervical back: Normal range of motion and neck supple. No tenderness. Right lower leg: No edema. Left lower leg: No edema. Lymphadenopathy: Cervical: No cervical adenopathy. Skin: General: Skin is warm and dry. Capillary Refill: Capillary refill takes less than 2 seconds. Neurological: General: No focal deficit present. Mental Status: She is alert and oriented to person, place, and time. Psychiatric: Mood and Affect: Mood normal. Behavior: Behavior normal. Thought Content: Thought content normal. Judgment: Judgment normal. Routine Screening and Health Maintenance Optometry: No, been a couple years Dentist: Trish, [facility] dental Routine Cancer Screening Cervical CA: PAP NIL/HPV neg 04/2023 Problem List Items Addressed This Visit Less than 8 weeks gestation of - Primary Current Assessment & Plan LMP 02/18/2024, dating her at 5 weeks and 4 days Pt plans to establish care with OBGYN, referral placed Relevant Medications multivitamin () 27-0.8 MG tablet Other Relevant Orders POCT Urine (Completed) Nausea Current Assessment & Plan Nausea is intermittent, pt able to keep foods and fluids down Sent unisom for prn use for nausea Relevant Medications doxylamine (Unisom) 25 MG tablet Healthcare maintenance Current Assessment & Plan Vision: due, referral placed Dental: due, referral placed Breast CA: Cervical CA: UTD Colon CA: Lung CA: Labs: see orders IMMs: due for covid/ flu declines at this time Relevant Orders Lipid Panel, Standard TSH W/Reflex to FT4 Hemoglobin A1c Basic Metabolic Panel CBC auto differential Housing instability Current Assessment & Plan Pt has current housing but is looking for more permanent housing Agrees to work with [facility] to navigate housing options, referrals placed Relevant Orders Referral to Social Work [facility] GLOST PLACER Attestation GLOST PLACER Resident Attestation: Patient was seen and evaluated by Marcello Hyde CNP, in collaboration with Blessing Echevarria MDwho has reviewed my assessment and plan. I, Blessing Echevarria MD, have reviewed the resident's note and agree with the assessment & plan of care as documented above. documented in this encounter Miscellaneous Notes * Assessment & Plan Note - Marcello Hyde CNP - 03/30/2024 12:17 PM EST Associated Problem(s): Less than 8 weeks gestation of LMP 02/18/2024, dating her at 5 weeks and 4 days Pt plans to establish care with OBGYN, referral placed * Assessment & Plan Note - Marcello Hyde CNP - 03/30/2024 12:16 PM EST Associated Problem(s): Healthcare maintenance Vision: due, referral placed Dental: due, referral placed Breast CA: Cervical CA: UTD Colon CA: Lung CA: Labs: see orders IMMs: due for covid/ flu declines at this time * Assessment & Plan Note - Marcello Hyde CNP - 03/30/2024 12:13 PM EST Associated Problem(s): Housing instability Pt has current housing but is looking for more permanent housing Agrees to work with [facility] to navigate housing options, referrals placed * Assessment & Plan Note - Marcello Hyde CNP - 03/30/2024 12:12 PM EST Associated Problem(s): Nausea Nausea is intermittent, pt able to keep foods and fluids down Sent unisom for prn use for nausea documented in this encounter Plan of Treatment Upcoming Encounters Date Type Department Care Team (Late st Contact Info) Description 05/02/2024 2:45 PM EDT Office Visit [facility] MEDICINE [address] [place] [address] Marcello Hyde CNP [address] [place] [address] 05/10/2024 1:45 PM EDT Office Visit [facility] MEDICINE [address] [place] [address] Deisi Sindhu ALLYSON [address] [place] [address] 06/28/2024 1:00 PM EDT Office Visit [facility] ADULT DENTAL [address] [place] [address] Angie, Danielle [address] [place] [address] Scheduled Orders Name Type Priority Associated Diagnoses Orde r Schedule Lipid Panel, Standard Lab Routine Healthcare maintenance Expected: 03/28/2024 (Approximate), Expires: 03/28/2025 TSH W/Reflex to FT4 Lab Routine Healthcare maintenance Expected: 03/28/2024 (Approximate), Expires: 03/28/2025 Hemoglobin A1c Lab Routine Healthcare maintenance Expected: 03/28/2024 (Approximate), Expires: 03/28/2025 Basic Metabolic Panel Lab Routine Healthcare maintenance Expected: 03/28/2024 (Approximate), Expires: 03/28/2025 CBC auto differential Lab Routine Healthcare maintenance Expected: 03/28/2024 (Approximate), Expires: 03/28/2025 Scheduled Referrals Name Type Priority Associated Diagnoses Orde r Schedule Referral to Social Work Outpatient Referral Routine Housing instability Expected: 03/30/2024 (Approximate), Expires: 03/30/2025 Referral to Obstetrics / Gynecology Outpatient Referral Routine Less than 8 weeks gestation of Expected: 03/30/2024 (Approximate), Expires: 03/30/2025 documented as of this encounter Procedures Procedure Name Priority Date/Time Associated Diagnosis Comments POCT , URINE Routine 03/28/2024 4:08 PM EST Less than 8 weeks gestation of documented in this encounter Results * (ABNORMAL) POCT Urine (03/28/2024 4:08 PM EST) Preg Test, Ur Positive (A) Negative, Indeterminate, None Detected, Invalid, Specimen unsatisfactory for evaluation, Weakly Positive QC Media Lot # [id number] Lot# Expiration Date [id number] Urine 03/28/2024 4:08 PM EST Marcello Hyde CNP POINT OF CARE TEST ENTER/ EDIT ORDERABLES Final Result documented in this encounter Visit Diagnoses Diagnosis Less than 8 weeks gestation of - Primary Nausea Nausea alone Healthcare maintenance Housing instability documented in this encounter Additional Health Concerns Assessment Noted Time PHQ-9 Depression Total Score: 15 024 8:49 AM EDT documented as of this encounter Care Teams Tree Scout Relationship Specialty Start Date End Date Marcello Hyde CNP [address] [place] [address] PCP - General Family Medicine 02/24/24 documented as of this encounter
--- OUTSIDE RECORDS SUMMARY | 2024-03-30 12:45 | XMS_ITS | Encounter Summary ---
Author Organization [employer] Address [address] [place] [address] 7t [place] [address] Care Team Providers Care Seismology Teacher Name Role Phone Jose DShe kimble DOBBY LOOM FIXER Primary Care Provider [phone] Elmira Desouza NP Primary Care Provider [phone] Marcello Hyde CNP Primary Care Provider [phone] Encounter Details Date Type Department Care Team (Latest Contact Info) Description 04/10/2019 Abstract [facility] CONVERSIONS Dental, Provider, DDS Social History Tobacco Use Types Packs/Day Years Used Date Smoking Tobacco: Never Assessed Comments Unknown Sex and Gender Information Value [...] Description 05/02/2024 2:45 PM EDT Office Visit [facility] MEDICINE [address] [place] [address] Marcello Hyde CNP [address] [place] [address] 05/10/2024 1:45 PM EDT Office Visit [facility] MEDICINE [address] [place] [address] Sindhu Lipscomb CNM [address] [place], [place] [phone] 06/28/2024 1:00 PM EDT Office Visit [facility] ADULT DENTAL [address] [place], [place] [phone] Danielle Adams [address] [place], [place] [phone] documented as of this encounter Visit Diagnoses Not on filedocumented in this encounter Care Teams Seismology Teacher Relationship Specialty Start Date End Date She Rodriguez FNP [address] [place], [place] [phone] PCP - General Family Medicine 02/04/22 10/10/23 Elmira Desouza NP [address] [place] [address] [phone] PCP - General Family Medicine 10/11/23 02/23/24 Marcello Hyde CNP [address] [place] [address] [phone] PCP - General Family Medicine 02/24/24 documented as of this encounter
--- OUTSIDE RECORDS SUMMARY | 2024-03-30 12:45 | XMS_ITS | Encounter Summary ---
Author Organization [employer] Address [address] [place] [address] 7t [place] [address] Care Team Providers Care Architectural Inspector Name Role Phone She Rodriguez Primary Care Provider [phone] Elmira Desouza NP Primary Care Provider [phone] Marcello Hyde PIPELINE EXECUTIVE Primary Care Provider [phone] Reason for Visit * Reason Onset Date Comments Referral 07/29/2022 Encounter Details Date Type Department Care Team (Late st Contact Info) Description 07/29/2022 Telephone [facility] MEDICINE [address] [place] [address] She Rodriguez FNP [address] [place] [address] Referral Social History Tobacco Use Types Packs/Day Years Used Date Smoking Tobacco: Never Passive Smoke Exposure: Never Smokeless Tobacco: Never Alcohol Use Standard Drinks/Week Comments Yes 0 (1 standard drink = 0.6 oz pur e alcohol) occasional / social Depression Answer Date Recorded Patient Health Questionnaire-9 Score 14 07/02/2022 Depression Answer Date Recorded Patient Health Questionnaire-2 Score 6 07/02/2022 Comments Unknown Sex and Gender Information Value Date Recorded Sex Assigned at Female 12/07/2021 10:17 AM EDT Legal Sex Female 10:17 AM EDT Gender Identity Female 12/07/2021 10:17 AM EDT Sexual Orientation Straight 12/07/2021 10 :17 AM EDT COVID-19 Exposure Response Date Recorded In the last 10 days, have yo u been in contact with someone who was confirmed or suspected to have Coronavirus/COVID-19? No / Unsure 07/27/2022 2:56 PM EDT documented as of this encounter Miscellaneous Notes * Telephone Encounter - Ana West RN - 07/29/2022 3:38 PM EDT Pt was referred in June for BH. Please advise pt on status of referral. Thank you. * Telephone Encounter - Katlyn Gil - 07/29/2022 8:57 AM EDT Tc from patient requesting the status of referral for BH. Patient states she see's it on her my chart but doesn't have a location nor a phone number. Stage Technician doesn't see referral. documented in this encounter Plan of Treatment Upcoming Encounters Date Type Department Care Team (Late st Contact Info) Description 05/02/2024 2:45 PM EDT Office Visit [facility] MEDICINE [address] [place] [address] Marcello Hyde CNP [address] [place] [address] 05/10/2024 1:45 PM EDT Office Visit [facility] MEDICINE [address] [place] [address] Sindhu Lipscomb CNM [address] [place] [address] 06/28/2024 1:00 PM EDT Office Visit [facility] ADULT DENTAL [address] [place] [address] Danielle Adams [address] [place] [address] documented as of this encounter Visit Diagnoses Not on filedocumented in this encounter Additional Health Concerns Assessment Noted Time PHQ-9 Depression Total Score: 14 023 9:01 AM EDT documented as of this encounter Care Teams Architectural Inspector Relationship Specialty Start Date End Date She Rodriguez FNP [address] [place] [address] PCP - General Family Medicine 02/04/22 10/10/23 Elmira Desouza NP [address] [place] [address] PCP - General Family Medicine 10/11/23 02/23/24 Marcello Hyde CNP [address] [place] [address] PCP - General Family Medicine 02/24/24 documented as of this encounter
--- OUTSIDE RECORDS SUMMARY | 2024-03-30 12:45 | XMS_ITS | Encounter Summary ---
Author Organization [employer] Address [address] [place] [address] Care Team Providers Care Pool Cleaner Name Role Phone Marcello Hyde MINERVA Primary Care Provider [phone] Encounter Details Date Type Department Care Team (Latest Contact Info) Description 03/28/2024 Travel Social History Tobacco Use Types Packs/Day Years [...] Description 05/02/2024 2:45 PM EDT Office Visit [facility] MEDICINE [address] [place] [address] Marcello Hyde CNP [address] [place] [address] 05/10/2024 1:45 PM EDT Office Visit [facility] MEDICINE [address] [place] [address] Sindhu Lipscomb CNM [address] [place] [address] 06/28/2024 1:00 PM EDT Office Visit [facility] ADULT DENTAL [address] [place] [address] Preet Adamsaris [address] [place] [address] documented as of this encounter Visit Diagnoses Not on filedocumented in this encounter Additional Health Concerns Assessment Noted Time PHQ-9 Depression Total Score: 15 024 8:49 AM EDT documented as of this encounter Care Teams Pool Cleaner Relationship Specialty Start Date End Date Marcello Hyde CNP [address] [place] [address] PCP - General Family Medicine 02/24/24 documented as of this encounter
--- OUTSIDE RECORDS SUMMARY | 2024-03-30 12:45 | XMS_ITS | Encounter Summary ---
Author Organization [employer] Address [address] [place] [address] 7t [place] [address] Care Team Providers Care Banking Paralegal Name Role Phone She Rodriguez SCIENTIFIC RECRUITER Primary Care Provider [phone] Elmira Desouza NP Primary Care Provider [phone] Marcello Hyde CNP Primary Care Provider [phone] Encounter Details Date Type Department Care Team (Latest Contact Info) Description 04/15/2020 Abstract [facility] CONVERSIONS Dental, Provider, DDS Social History Tobacco [...] Description 05/02/2024 2:45 PM EDT Office Visit [facility] MEDICINE [address] [place] [phone] Marcello Hyde CNP [address] [place] [address] 05/10/2024 1:45 PM EDT Office Visit [facility] MEDICINE [address] [place] [address] Sindhu Lipscomb CNM [address] [place] [address] 06/28/2024 1:00 PM EDT Office Visit [facility] ADULT DENTAL [address] [place], [place] [phone] Danielle Adams [address] [place], [place] [phone] documented as of this encounter Visit Diagnoses Not on filedocumented in this encounter Care Teams Banking Paralegal Relationship Specialty Start Date End Date She Rodriguez FNP [address] [place] [address] [phone] PCP - General Family Medicine 02/04/22 10/10/23 Elmira Desouza NP [address] [place] [address] [phone] PCP - General Family Medicine 10/11/23 02/23/24 Marcello Hyde CNP [address] [place] [address] [phone] PCP - General Family Medicine 02/24/24 documented as of this encounter
--- OUTSIDE RECORDS SUMMARY | 2024-03-30 12:45 | XMS_ITS | Encounter Summary ---
Author Organization [employer] Address [address] [place] [address] 7 [place] [address] Care Team Providers Care Advertising Executive Name Role Phone Marcello Hyde CNP Primary Care Provider [phone] Reason for Visit * Reason Onset Date Comments FYI 03/28/2024 Call Back Request 03/28/2024 Encounter Details Date Type Department Care Team (Late st Contact Info) Description 03/28/2024 Telephone [facility] MEDICINE [address] [place] [address] Marcello Hyde CNP [address] [place] [address] FYI; Call Back Request Social History Tobacco Use Types Packs/Day [...] encounter Miscellaneous Notes * Telephone Encounter - Christi Bradley RN - 03/28/2024 9:56 AM EST TC to pt re positive test. Pt req appt with pcp, scheduled for today at 3:15. * Telephone Encounter - Katelynn Ledezma - 03/28/2024 9:36 AM EST Tc from pt to report a positive test and requesting a call back to discuss next steps. [phone] documented in this encounter Plan of Treatment Upcoming Encounters Date Type Department Care Team (Late st Contact Info) Description 05/02/2024 2:45 PM EDT Office Visit [facility] MEDICINE [address] [place] [address] Marcello Hyde CNP [address] [place] [address] 05/10/2024 1:45 PM EDT Office Visit [facility] MEDICINE [address] [place] [address] [phone] Sindhu Lipscomb, ALLYSON [address] [place], [place] [phone] 06/28/2024 1:00 PM EDT Office Visit [facility] ADULT DENTAL [address] [place], [place] [phone] AngieDanielle [address] [place], [place] [phone] documented as of this encounter Visit Diagnoses Not on filedocumented in this encounter Additional Health Concerns Assessment Noted Time PHQ-9 Depression Total Score: 15 024 8:49 AM EDT documented as of this encounter Care Teams Advertising Executive Relationship Specialty Start Date End Date Marcello Hyde CNP [address] [place], [place] [phone] PCP - General Family Medicine 02/24/24 documented as of this encounter
--- OUTSIDE RECORDS SUMMARY | 2024-03-30 12:45 | XMS_ITS | Encounter Summary ---
Author Organization [employer] Address [address] [place] [address] 7t [place] [address] Care Team Providers Care Sweat Box Attendant Name Role Phone She Rodriguez GAS BRAZER Primary Care Provider [phone] Elmira Desouza NP Primary Care Provider [phone] Marcello Hyde CNP Primary Care Provider [phone] Encounter Details Date Type Department Care Team (Latest Contact Info) Description 12/03/2021 Abstract [facility] CONVERSIONS Dental, Provider, DDS Social History [...] Description 05/02/2024 2:45 PM EDT Office Visit [facility] MEDICINE [address] [place] [address] Marcello Hyde CNP [address] [place] [address] 05/10/2024 1:45 PM EDT Office Visit [facility] MEDICINE [address] [place] [address] Sindhu Lipscomb CNM [address] [place] [address] 06/28/2024 1:00 PM EDT Office Visit [facility] ADULT DENTAL [address] [place], [place] [phone] Danielle Adams [address] [place], [place] [phone] documented as of this encounter Visit Diagnoses Not on filedocumented in this encounter Care Teams Sweat Box Attendant Relationship Specialty Start Date End Date She Rodriguez FNP [address] [place] [address] [phone] PCP - General Family Medicine 02/04/22 10/10/23 Elmira Desouza NP [address] [place] [address] [phone] PCP - General Family Medicine 10/11/23 02/23/24 Marcello Hyde CNP [address] [place] [address] [phone] PCP - General Family Medicine 02/24/24 documented as of this encounter
--- OUTSIDE RECORDS SUMMARY | 2024-03-30 12:45 | XMS_ITS | Encounter Summary ---
Author Organization [employer] Address [address] [facility] 7t [place] [address] Care Team Providers Care Salt Grinder Name Role Phone She Rodriguez Primary Care Provider [phone] Elmira Desouza NP Primary Care Provider [phone] Marcello Hyde SALES REPRESENTATIVE EDUCATION COURSES Primary Care Provider + [phone] Encounter Details Date Type Department Care Team (Late st Contact Info) Description 05/06/2023 Orders Only [facility] MED & PEDS [address] [place] [address] She Rodriguez FNP [address] [place] [address] Social History Tobacco Use Types Packs/Day Years Used Date Smoking Tobacco: Never Passive Smoke Exposure: Never Smokeless Tobacco: Never Alcohol Use Standard Drinks/Week Comments Yes 0 (1 standard drink = 0.6 oz pur e alcohol) occasional / social Depression Answer Date Recorded Patient Health Questionnaire-9 Score 12 03/25/2023 Patient Health Questionnaire-9 Score 12 03/25/2023 Last PHQ-9: Questionnaire Data Not on file 0 03/25/2023 Housing Stability Answer Date Recorded What is your housing situation today? I have aliyah blackwell 11/29/[address] you li ve. Do you have problems with any of the following? None of the above 11/29/2022 Food Insecurity Answer Date Recorded Within the past 12 months, y ou worried that your food would run out before you got money to buy more: Sometimes True 2023 Within the past 12 months,th e food you bought just didn't last and you didn't have enough money to get more: Sometimes True 03/25/2023 Transportation Answer Date Recorded In the past [...] Answer Date Recorded Patient Health Questionnaire-2 Score 3 03/25/2023 Comments No Sex and Gender Information Value Date Recorded Sex Assigned at Female 12/07/2021 10:17 AM EDT Legal Sex Female 10:17 AM EDT Gender Identity Female 12/07/2021 10:17 AM EDT Sexual Orientation Straight 12/07/2021 10 :17 AM EDT documented as of this encounter Plan of Treatment Upcoming Encounters Date Type Department Care Team (Late st Contact Info) Description 05/02/2024 2:45 PM EDT Office Visit [facility] MEDICINE [address] [place] [phone] Marcello Hyde, [place]ERV[place] [address] [place] [address] 05/10/2024 1:45 PM EDT Office Visit [facility] MED[facility]INE [address] [place] [address] Sindhu Lipscomb CNM [address] [place] [address] 06/28/2024 1:00 PM EDT Office Visit [facility] ADULT DENTAL [address] [place] [address] Danielle Adams [address] [place] [address] documented as of this encounter Visit Diagnoses Not on filedocumented in this encounter Additional Health Concerns Assessment Noted Time PHQ-9 Depression Total Score: 12 024 3:38 PM EST documented as of this encounter Care Teams Salt Grinder Relationship Specialty Start Date End Date She Rodriguez FNP [address] [place], [place] [phone] PCP - General Family Medicine 02/04/22 10/10/23 Elmira Desouza NP [address] [place], [place] [phone] PCP - General Family Medicine 10/11/23 02/23/24 Marcello Hyde CNP [address] [place], [place] [phone] PCP - General Family Medicine 02/24/24 documented as of this encounter
--- OUTSIDE RECORDS SUMMARY | 2024-03-30 12:45 | XMS_ITS | Clinical Summary ---
Author Organization [employer] Address [address] [facility] 7[address] [place] [address] Care Team Providers Care Pediatric Dietician Name Role Phone Marcello Hyde EHS SPECIALIST Primary Care Provider [phone] Allergies Active Allergy Reactions Criticality Noted Date Comments Medroxyprogesterone 05/07/2014 Medications * This document contains information received from the source organization and may not represent a complete record from that organization. Blood Pressure Monitor kit 1 kit 2 times daily. 1 kit 4 Active valACYclovir (Valtrex) 1 g tablet TAKE 1 TABLET BY MOUTH EVERY DAY FOR 5 DAYS 5 tablet 5 4 Active multivitamin () 27-0.8 MG tabletIndicatio ns:Less than 8 weeks gestation of Take 1 tablet by mouth Once per day. 30 tablet 5 Active doxylamine (Unisom) 25 MG tabletIndicatio ns:Nausea Take 1 tablet (25 mg) by mouth if needed at bedtime for sleep. 30 tablet 5 04/28/19 25 Active hydrocortisone 1 % ointment Apply topically twice a day. 1 03/28/19 25 Discontinu ed(Therapy completed) SUMAtriptan (Imitrex) 25 MG tablet Take 1 tablet (25 mg) by mouth 1 (one) time if needed for migraine for up to 9 doses. May repeat dose once in 2 hours if no relief. Do not exceed 2 doses in 24 hours. 9 tablet 4 03/28/19 25 Discontinu ed(Therapy completed) norethindrone (Micronor) 0.35 MG tablet Take 1 tablet (0.35 mg) by mouth Once per day. 28 tablet 3 4 03/28/19 25 Discontinu ed(Therapy completed) ondansetron (Zofran) 4 MG tabletIndicatio ns:Nausea Take 2 tablets (8 mg) by mouth every 8 (eight) hours if needed for nausea or vomiting for up to 7 days. 20 tablet 5 03/28/19 25 Discontinu ed(Entered in error) Active Problems Problem Noted Date Diagnosed Date Less than 8 weeks gestation of 025 Assessment & Plan (03/30/2024 12:17 PM EST): LMP 02/18/2024, dating her at 5 weeks and 4 days Pt plans to establish care with OBGYN, referral placed Nausea 03/30/2024 Assessment & Plan (03/30/2024 12:12 PM EST): Nausea is intermittent, pt able to keep foods and fluids down Sent unisom for prn use for nausea Healthcare maintenance 03/30/2024 Assessment & Plan (03/30/2024 12:16 PM EST): Vision: due, referral placed Dental: due, referral placed Breast CA: Cervical CA: UTD Colon CA: Lung CA: Labs: see orders IMMs: due for covid/ flu declines at this time Housing instability 03/30/2024 Assessment & Plan (03/30/2024 12:13 PM EST): Pt has current housing but is looking for more permanent housing Agrees to work with [facility] to navigate housing options, referrals placed Influenza B 03/28/2024 Rectal hemorrhage 03/28/2024 Moderate episode of recurrent major depressive d isorder 07/01/2023 AMBROSE (generalized anxiety disorder) 07/01/2023 Acute stress disorder 07/01/2023 Assessment & Plan (07/01/2023 9:08 AM EDT): PROGRESS NOTE: ID: Machelle is a 33 y.o. straight-identified cis-female with self reported history of Depression and Anxiety. services including OP Psychotherapy No previous hx of MH dx or sx who presents for Anxiety and Depression. During IBH Consult Machelle presenting with depressed mood, loss of interests/pleasure , changes in sleep sleeping too much, trouble concentrating, fatigue/loss of energy, worthlessness , excessive worry/anxiety, difficulty controlling worry, restless/keyed up/On edge, easily fatigued, difficulty concentrating/Mind going blank , irritability, muscle tension, and sleep disturbance sleeping too much, and intrusive memories, flash backs, negative feelings, shame, diminished ability to concentrate, fearfulness,hypervigilant and anhedonia. ; for a period of 18+ mo, for all symptoms in the context of stress relationship with partner, recent break up, adjusting to living with grandmother, recent traumatic episode. PLAN: New/Additional Services needed Off-site services for Behavioral Health Integration Plan Internal Follow up with [facility] External OP therapy referral Patient Self Plan Patient to utilize skills provided in intervention , Patient to reach out to [facility] team as needed, Patient to engage in OP therapy , and Patient to reach out to [facility] as needed Dental calculus 07/27/2022 Allergic rhinitis due to pollen 07/01/2022 Dorsalgia of lumbosacral region 07/01/2022 Bradycardia 07/01/2022 Candidiasis 07/01/2022 External hemorrhoids 07/01/2022 Chronic thoracic back pain 07/01/2022 Comments Yes Encounters Date Type Department Care Team Description 03/28/2024 3:15 PM EST Office Visit [facility] [address] [place] [address] Marcello Hyde CNP Less than 8 weeks gestation of (Primary Dx); Nausea; Healthcare maintenance; Housing instability 03/28/2024 Travel 03/28/2024 Telephone [facility] [address] [place], [place] [phone] Marcello Hyde CNP FYI; Call Back Request 02/24/2024 Telephone [facility] [address] [place] [address] Ibeth Kirkland [place] April Recall from Last 3 Months Immunizations Name Administration Dates Next Due DTP 06/12/1997, 4,06/05/1993,12/21,1992 DTaP 12/30/2003, 8,12/08/1993,05/08,1992,1992 HPV, Quadrivalent 11/28/2006,07/27/2006,05/28/19 07 Hep A, ped/adol, 2 dose 07/21/2010,08/05/2009 Hep B, Adolescent or Pediatric 4,05/08/1993,1992,10/08,1992 Hep B, adult 08/20/2014 Hib (HbOC) 08/07/1993, 4,1992,10/08 Hib (PRP-T) 09/04/1993, 4,1992,11/06 IPV 06/07/1997, 4,05/08/1993,12/31,1992,1992,1992 Influenza injectable quadriv alent preservative free 10/24/2019 Influenza, IIV3, injectable 01/13/2010 Influenza, Split (incl. leena fied surface antigen) 11/22/2011 MMR 06/12/1997,09/04/1993,08/07/1993 Meningococcal MCV4P ACYW-135 07/21/2010 Meningococcal MPSV4 10/10/2007 TD (adult), 2 Lf tetanus tox oid, preservative free, adsorbed 12/30/2003 Tdap 09/27/2022,04/29/2021,07/31/2009 Varicella 08/05/2009,06/12/1997 Family History Medical History Relation Name Comments Alzheimer's disease Maternal Grandmother Breast cancer Mother passed from [facility] cancer age 43 Relation Name Status Comments Maternal Grandfather Maternal Grandmother Mother Social History Tobacco Use Types Packs/Day Years Used Date Smoking Tobacco: Never Passive Smoke Exposure: Never Smokeless Tobacco: Never Tobacco Cessation:Counseling Given: Not Answered Alcohol Use Standard Drinks/Week Comments Yes 0 [...] Orientation Straight 12/07/2021 10 :17 AM EDT Last Filed Vital Signs Vital Sign Reading [...] oz) 03/28/2024 3:11 P M EST Height 162.6 cm (5' 4 ) 07/05/2023 5:33 PM EDT Body Mass Index 35.74 07/05/2023 5:33 PM EDT Plan of Treatment Upcoming Encounters Date Type Department Care Team (Late st Contact Info) Description 05/02/2024 2:45 PM EDT Office Visit [facility] [address] [place] [address] Marcello Hyde, EHS SPECIALIST [address] [place] [address] 05/10/2024 1:45 PM EDT Office Visit [facility] [address] [place] [address] Carmen Duron, CNM [address] [place], [place] [phone] 06/28/2024 1:00 PM EDT Office Visit [facility] ADULT DENTAL [address] [place] [address] Preet Adamsaris [address] [place], [place] [phone] Health Maintenance Due Date Last Done Comments Alcohol/Substance Use Screening 2004 COVID-19 Vaccine ( season) 2023 08/18/2020, 07/15/2020 Influenza Vaccine (#1) 2023 , 11/22/2011, 01/13/2010 Dental Oral Exam 10/13/2023 04/11/2023, , 04/15/2020, Additional history exists Dental Prophylaxis 10/13/2023 04/11/2023, 0 07/27/2022, 12/03/2021, Additional history exists Depression Monitoring (PHQ-9) 01/01/2024 07/01/2023, 07/01/2023 Dental X-Ray: Bitewings 04/11/2024 04/11/19, 12/03/2021, 04/15/2020, Additional history exists SDOH Screening 05/24/2024 05/25/2023 Tobacco Screening 05/24/2024 05/25/2023 Family Planning (PISQ) 06/29/2024 06/30/2023 Depression Screening 06/30/2024 07/01/2023, 07/01/19 Dental X-Ray: Full Mouth 04/11/2026 024, 04/10/2019, 07/03/2013, Additional history exists Cervical Cancer Screening 05/04/2028 HPV/Cotest 05/04/2028 05/05/2023 Pap Smear 05/04/2028 05/05/2023, 10/24/2019 DTaP/Tdap/Td Vaccines (10 - Td or Tdap) 09/27/2032 09/27/2022, 04/29/2021, 07/31/2009, Additional history exists Zoster Vaccines (1 of 2) 2042 RSV Patients and Patients Aged 60 years or older (1 - 1-dose 75+ series) 06/15/2067 HIB Vaccines Completed 09/04/1993, 02/1993, 06/05/1993, Additional history exists IPV Vaccines Completed 06/07/1997, 05/09, 05/08/1993, Additional history exists HPV Vaccines Completed 11/28/2006, 07/09, 05/27/2006 Hepatitis A Vaccines Completed 07/21/2010, 08/06/19 10 Meningococcal Vaccine Completed 07/21/2010, 008 Hepatitis B Vaccines Completed 08/20/2014, 06/05/1993, 05/08/1993, Additional history exists HIV Screening Completed 07/06/2022, 04/08, 04/29/2021, Additional history exists Hepatitis C Screening Completed 07/06/2022, 022 Pneumococcal Vaccine: Pediatrics (0 to 5 Years) and At-Risk Patients (6 to 49) Years) Aged Out No longer eligible based on patient's age to complete this topic RSV under 20 months Aged Out No longe r eligible based on patient's age to complete this topic Rotavirus Vaccines Aged Out No longer eligible based on patient's age to complete this topic Procedures Procedure Name Priority Date/Time Associated Diagnosis Comments POCT , URINE Routine 03/28/2024 4:08 PM EST Less than 8 weeks gestation of HPV MRNA E6/E7 REFLEX TO HPV 16, 18/45 Routine 05/05/2023 10:05 AM EDT PAP SMEAR Routine 05/05/2023 10:05 AM EDT Cervical cancer screening PROPHYLAXIS - ADULT Routine 04/11/2023 1 :00 PM EST Dental plaque INTRAORAL - COMPLETE SERIES OF RADIOGRAPHIC IMAGES Routine 04/11/2023 1:00 PM EST Dental plaque PERIODIC ORAL EVALUATION - ESTABLISHED PATIENT Routine 04/11/2023 1:00 PM EST HEPATITIS C AB W/REFL TO HCV RNA, QN, PCR Routine 07/06/2022 9:51 AM EDT Screening examination for sexually transmitted disease HIV 1 RNA, QN PCR W/RFL KE (RTI,PI,INTEGRASE) Routine 07/06/2022 9:51 AM EDT Screening examination for sexually transmitted disease from Last 3 Months or Most Recently Relevant to Health Maintenance Results * (ABNORMAL) POCT Urine (03/28/2024 4:08 PM EST) Preg Test, Ur Positive (A) Negative, Indeterminate, None Detected, Invalid, Specimen unsatisfactory for evaluation, Weakly Positive QC Media Lot # [id number] Lot# Expiration Date 6 Urine 03/28/2024 4:08 PM EST [facility] POINT OF CARE TEST ENTER/ EDIT ORDERABLES Final Result * HPV mRNA E6/E7 w/Reflex to HPV Genotypes 16, 18/45 (05/05/2023 10:05 AM EDT) Pathologist [facility] HPV nRNA E6/E7 Not Detected Not Detected [facility] Comment:Methodology: Transcr iption-Mediated AmplificationThis assay detects E6/E7 viral messenger RNA (mRNA) from 14high-risk HPV types (16,18,31,33,35,39,45,51,52,56,58,59,66,68).Cervical sources are required for HPV testing.If a vaginal source from a patient who has had atotal hysterectomy with removal of cervix wassubmitted, please contact the testing laboratoryfor alternative testing options.For additional information, please refer tohttp://education.[employer]/faq/MHP704f3(This link if provided for information/educational purposes only.)THIS TEST WAS PERFORMED AT:[facility] [place] [phone] SILVER MD HPV mRNA E6/E7 TNP [facility] HPV 16 RNA TNP [facility] HPV 18/45 RNA TNP [facility] 05/05/2023 10:0 5 AM EDT 05/06/2023 9:30 AM EDT us Carmen Duron CNM LAB CYTOLOGY ORDERABLES F inal Result [facility] [address] [place] [address] [phone] * Pap Smear (05/05/2023 10:05 AM EDT) Swab Cervix uteri structure / Unknown 05/05/2023 10:05 AM EDT 05/06/2023 9:30 AM EDT Narrative [facility] - 05/15/2023 5:52 PM EDT ----- ------- Name: Machelle Aleman ?Age/Sex: 32/F ? : 1990 Unit#: [id number] ?? Attend Dr: CARMEN DURON CNM ?Re05/05/23 ?Status: DEP REF ? Location: HO.HHCLNP ? Disch: ? ----- ------- SPEC : [id number] ? RECD: 05/06/23 ? STATUS: ??SOUT ? REQ NUM: [id number] ? JOLENE: 05/05/23 ? SUBM DR: CARMEN DURON CNM ? ENTERED: ??05/06/23 ?SP TYPE: Pap Smr ?OTHR DR: ? ORDERED: ??Pap Smear ? Interpretation ?? Satisfactory for evaluation. ?? No endocervical cells seen. ?? Negative for intraepithelial lesion or malignancy. ?? Coccobacilli consistent with shift in vaginal rajesh. ? HPV mRNA E6/E7: ?NOT DETECTED ? This assay detects E6/E7 viral messenger RNA (mRNA) from 14 high-risk HPV types (16, 18, ?? 31, 33, 35, 39, 45, 51, 52, 56, 58, 59, 66, 68) ? HPV testing performed by [facility], [place], [place]. ??See reference laboratory ?? portion of the EMR for entire report. ?Clinical Information LMP: IUD Previous PAP test: 10/2019, WNL ? Material Received ?? ThinPrep-Cervical ----- ------- Signed (signature on file) Raquel Umanzor Kassandra 05/15/231751 ? ----- ------- ? END OF REPORT ? us Carmen Duron [facility] CYTOLOGY ORDERABLES F inal Result [facility] [address] [place] [phone] * HIV-1 RNA, Quantitative, Real-Time PCR with Reflex to Genotype (RTI, PI, Integrase) (07/06/2022 9:51 AM EDT) HIV 1 RNA, QN PCR NOT DETECTED copies/mL [facility]/Uday montero [facility] [place], HIV 1 RNA, QN PCR NOT DETECTED Log copies/mL [facility]/N kylah [facility], Comment: REFERENCE RANGE: NOT DETECTED copies/mL ?NOT DETECTED ??Log copies/mL This test was performed using Real-Time Polymerase Chain Reaction. Reportable range is 20 to 10,000,000 copies/mL (1.30-7.00 Log copies/mL). 07/06/2022 9:51 AM EDT 07/06/2022 9:52 AM EDT Narrative [facility] - 07/09/2022 2:38 AM EDT FASTING:YES FASTING: YES [facility] LAB BLOOD ORDERABLES Final Resu lt [facility] [address], [place] [address] [facility] [facility], [address] [place] [address] * Hepatitis C Antibody with Reflex to HCV, RNA, Quantitative, Real-Time PCR (07/06/2022 9:51 AM EDT) Hepatitis C Antibody NON-REACT GERSON NON-REACT GERSON [facility] [employer]2CODE On[employer] Index 0.05 <1.00 [facility] Comment: HCV antibody was non-reactive. There is no laboratory evidence of HCV infection. In most cases, no further action is required. However, if recent HCV exposure is suspected, a test for HCV RNA (test code 52615) is suggested. For additional information please refer to http://education.[employer]ue.[employer]/faq/YHR15l1 (This link is being provided for informational/ educational purposes only.) Blood Venous blood specimen / Unknown 07/06/2022 9:51 AM EDT 07/06/2022 9:52 AM EDT Narrative [facility] - 07/09/2022 2:38 AM EDT FASTING:YES FASTING: YES [employer] CONCRETE [facility]ON LAB BLOOD ORDERABLES Final Resu lt [facility] [address] [facility], [facility], [place] [address] [facility] [address] [place] [address] from Last 3 Months or Most Recently Relevant to Health Maintenance Insurance [place] [id number] [facility] D[facility] OF [place] DENTAL - HSN PARTIAL (MEDICAID) Care Teams Pediatric Dietician Relationship Specialty Start Date End Date Marcello Hyde CNP [address] [place] [address] PCP - General Family Medicine 02/24/24
[2024-03-30 13:20] LABS: MANUAL DIFF FLAG NO
[2024-03-30 13:32] LABS: Basophils Percent Auto 0.5 % (0-2); Eosinophils Percent Auto 0.5 % (0-4); Hematocrit 35.5 % (37.0-47.0); Hemoglobin 11.9 g/dl (12.0-16.0); Imm Gran Abs Auto 0.03 X10*3/uL (0.00-0.03); Imm Gran Pct Auto 0.3 % (0.0-0.4); Lymphocytes Absolute Auto 3.7 X10*3/uL (1.2-4.9); Lymphocytes Percent Auto 41.8 % (20-40); Mean Corpuscular HGB Conc 33.5 g/dl (31.0-35.0); Mean Corpuscular Hemoglobin 28.7 pg (27.0-33.0); Mean Corpuscular Volume 85.7 fL (80.0-98.0); Monocytes Absolute Auto 0.4 X10*3/uL (0.1-1.2); Monocytes Percent Auto 4.8 % (2-11); Neutrophils Absolute Auto 4.6 x10*3/uL (2.0-8.3); Neutrophils Percent Auto 52.1 % (45-73); Platelet Count 295 X10*3/uL (160-400); Red Blood Count 4.14 X10*6/uL (4.20-5.50); White Blood Count 8.8 X10*3/uL (4.8-10.8)
[2024-03-30 13:50] LABS: Estimated Average Glucose 105 mg/dL; Hemoglobin A1C 106.0879 umol/L; Hemoglobin A1c % 5.3 % (<6.0); Total Hemoglobin (HGBA1C) 3107.8899 umol/L
[2024-03-30 13:55] LABS: Anion Gap 10 (12-20); Blood Urea Nitrogen 9 mg/dL (9-16); Calcium 9.5 mg/dL (8.4-10.2); Carbon Dioxide 23 mmol/L (22-29); Chloride 107 mmol/L (96-108); Cholesterol 144 mg/dL (<200); Estimated Glomerular Filt Rate > 60; Glucose Random 86 mg/dL (60-115); HDL Cholesterol 46 mg/dL (>40); LDL Cholesterol Calculated 89 mg/dL (<100); Potassium 3.7 mmol/L (3.3-5.1); Sodium 136 mmol/L (135-145); Triglycerides 46 mg/dL (<150)
[2024-03-30 14:04] LABS: TSH reflex Free T4 1.45 uIU/mL (0.32-4.0)
== END 2024-03-30 11:44 | disposition home or self-care (01) ==
LOC: HO.HHCL 11:43
DX: Z00.00 Encounter for general adult medical examination without abnormal findings (principal)
CPT/HCPCS: 36415; 80048; 80061; 83036; 84443; 85025

== ENCOUNTER 2024-08-15 12:22 | Outpatient (REF) | payer MEDICAID, SELFPAY ==
--- OUTSIDE RECORDS SUMMARY | 2024-08-15 13:19 | XMS_ITS | Clinical Summary ---
Author Organization [employer] Address [address] [facility] 7 [place] [address] Care Team Providers Care Shirt Presser Name Role Phone Marcello Hyde CORPORATE DEVELOPMENT MANAGER Primary Care Provider [phone] Allergies Active Allergy Reactions Criticality Noted Date Comments Medroxyprogesterone 05/07/2014 Medications * This document contains information received from the source organization and may not represent a complete record from that organization. Blood Pressure Monitor kit 1 kit 2 times daily. 1 kit 4 Active multivitamin () 27-0.8 MG tabletIndicatio ns:Less than 8 weeks gestation of TAKE 1 TABLET BY MOTH EVERY DAY 30 tablet 5 Active Additional Information Patient not taking.Reason: Other (Pt states not taking), Reported on 06/28/2024 doxylamine (Unisom) 25 MG tabletIndicatio ns:Nausea Take 1 tablet (25 mg) by mouth if needed at bedtime for sleep. 30 tablet 5 Active Additional Information Patient not taking.Reason: Other (Pt states not taking), Reported on 06/28/2024 pyridoxine (Vitamin B-6) 50 MG tabletIndicatio ns:Nausea Take 0.5 tablets (25 mg) by mouth 3 times daily. 45 tablet 11 5 05/03/19 26 Active Additional Information Patient not taking.Reason: Other (Pt states not taking), Reported on 06/28/2024 valACYclovir (Valtrex) 1 g tabletIndicatio ns:Recurrent HSV (herpes simplex virus) TAKE 1 TABLET BY MOUTH EVERY DAY FOR 5 DAYS 5 tablet Active Additional Information Patient not taking.Reason: Other (Pt states not taking), Reported on 06/28/2024 acetaminophen-c affeine-pyrilam ine (Midol Complete) 500-60-15 MG tablet tablet Take 500 mg by mouth. Active miSOPROStol (Cytotec) [address] 800 mcg under the tongue. 5 Active Active Problems Problem Noted Date Diagnosed Date Impacted tooth 06/28/2024 Elevated BP without diagnosis of hypertension Less than 8 weeks gestation of 025 [...] Health Integration Plan Internal Follow up with [facility] External OP therapy referral Patient Self Plan Patient to utilize skills provided in intervention , Patient to reach out to [facility] team as needed, Patient to engage in OP therapy , and Patient to reach out to [facility] as needed Dental plaque 07/27/2022 Allergic rhinitis due to pollen 07/01/2022 Dorsalgia of lumbosacral region 07/01/2022 Bradycardia 07/01/2022 Candidiasis 07/01/2022 External hemorrhoids 07/01/2022 Chronic thoracic back pain 07/01/2022 Comments Yes Encounters Date Type Department Care Team Description 08/02/2024 Telephone [facility] MEDICINE [address] [place] [address] Marcello Hyde CNP Chart Prep 07/27/2024 Patient Outreach [facility] CHC MED & PEDS [address] [place] [address] Marcello Hyde CNP Pre-visit Planning ([facility] unable to reach M ) 06/28/2024 1:00 PM EDT Office Visit [facility] ADULT DENTAL [address] [place] [address] Danielle Adams Dental plaque (Primary Dx); Impacted tooth 05/23/2024 Orders Only [facility] MEDICINE [address] [place] [address] Marcello Hyde CNP Recurrent HSV (herpes simplex virus) (Primary Dx) 05/22/2024 Telephone [facility] MEDICINE [address] [place] [address] Marcello Hyde CNP Nurse Triage from Last 3 Months Immunizations Immunization Administration Dates Next Due DTP 06/12/1997, 4,06/05/1993,12/21,1992 [...] Maternal Grandmother Breast cancer Mother passed from [facility] cancer age 43 Relation Name Status [...] Answer Date Recorded Patient Health Questionnaire-9 Score 0 05/02/2024 Patient Health Questionnaire-9 Score 0 05/02/2024 Last PHQ-9: Questionnaire Data Not on file 0 05/02/2024 Housing Stability Answer Date Recorded What is [...] Answer Date Recorded Patient Health Questionnaire-2 Score 0 05/02/2024 Internet Access Answer Date Recorded Internet Access Q1 Yes 05/02/2024 Internet Access Q2 Not on file 05/02/2024 Comments Yes Sex and Gender Information Value Date Recorded Sex Assigned at Female 12/07/2021 10:17 AM EDT Legal Sex Female 10:17 AM EDT Gender Identity Female 12/07/2021 10:17 AM EDT Sexual Orientation Straight 12/07/2021 10 :17 AM EDT Last Filed Vital Signs Vital Sign Reading Time Taken Comments Blood Pressure 122/70 06/28/2024 12:59 PM EDT Pulse 80 05/02/2024 2:49 PM EDT Temperature 36.7 C (98 F) 05/02/2024 2:49 PM EDT Respiratory Rate 20 05/02/2024 2:49 PM EDT Oxygen Saturation 99% 05/02/2024 2:49 PM EDT Inhaled Oxygen Concentration - - Weight 95 kg (209 lb 6.4 oz) 05/02/2024 2:49 PM EDT Height 162.6 cm (5' 4 ) 07/05/2023 5:33 PM EDT Body Mass Index 35.94 07/05/2023 5:33 PM EDT Plan of Treatment Health Maintenance Due Date Last Done Comments Disability Screening 1992 Alcohol/Substance Use Screening 2004 Family Planning (PISQ) 06/15/2007 COVID-19 Vaccine ( season) 2023 08/18/2020, 07/15/2020 Influenza Vaccine (#1) 2024 , 10/24/2019, 11/22/2011, Additional history exists Dental Oral Exam 12/30/2024 06/28/2024, 05/2023, 12/03/2021, Additional history exists Dental Prophylaxis 12/30/2024 06/28/2024, 0 04/11/2023, 07/27/2022, Additional history exists Depression Screening 05/02/2025 05/02/2024, 05/03/19 SDOH Screening 05/02/2025 05/02/2024 Tobacco Screening 06/28/2025 06/28/2024 Dental X-Ray: Bitewings 06/29/2025 06/29/19 25, 04/11/2023, 12/03/2021, Additional history exists Dental X-Ray: Full Mouth 04/11/2026 024, 04/10/2019, [...] 07/09, 05/27/2006 Hepatitis A Vaccines Completed 07/21/2010, 07/21/2010, 08/05/2009, Additional history exists Meningococcal Vaccine Completed 07/21/2010 , 07/21/2010, 10/10/2007 Hepatitis B Vaccines Completed 08/20/2014, 06/05/1993, 05/08/1993, Additional history exists HIV Screening Completed 07/06/2022, 04/08, 04/29/2021, Additional history exists Hepatitis C Screening Completed 07/06/2022, 022 Meningococcal B Vaccine Aged Out No l onger eligible based on patient's age to complete this topic Pneumococcal Vaccine: Pediatrics (0 to 5 Years) and At-Risk Patients (6 to 49) Years Aged Out No longer eligible based on patient's age to complete this topic RSV under 20 months Aged Out No longe r eligible based on patient's age to complete this topic Rotavirus Vaccines Aged Out No longer eligible based on patient's age to complete this topic Procedures Procedure Name Priority Date/Time Associated Diagnosis Comments PERIODIC ORAL EVALUATION - ESTABLISHED PATIENT Routine 06/28/2024 1:00 PM EDT CASE PRESENTATION, DETAILED AND EXTENSIVE TREATMENT PLANNING Routine 06/28/2024 1:00 PM EDT Dental plaque 24,25 INTRAORAL - PERIAPICAL EACH ADDITIONAL RADIOGRAPHIC IMAGE Routine 06/28/2024 1:00 PM EDT Dental plaque 8,9 INTRAORAL - PERIAPICAL FIRST RADIOGRAPHIC IMAGE Routine 06/28/2024 1:00 PM EDT Dental plaque ORAL HYGIENE INSTRUCTIONS Routine 06/28/2024 1:00 PM EDT Dental plaque BITEWINGS - 4 RADIOGRAPHIC IMAGES Routine 06/28/2024 1:00 PM EDT Dental plaque Full PROPHYLAXIS - ADULT Routine 06/28/2024 1:00 PM EDT Dental plaque HPV MRNA E6/E7 REFLEX TO HPV 16, 18/45 Routine 05/05/2023 10:05 AM EDT PAP SMEAR Routine 05/05/2023 10:05 AM EDT Cervical cancer screening INTRAORAL - COMPLETE SERIES OF RADIOGRAPHIC IMAGES Routine 04/11/2023 1:00 PM EST Dental plaque HEPATITIS C AB W/REFL TO HCV RNA, QN, PCR Routine 07/06/2022 9:51 AM EDT Screening examination for sexually transmitted disease HIV 1 RNA, QN PCR W/RFL KE (RTI,PI,INTEGRASE) Routine 07/06/2022 9:51 AM EDT Screening examination for sexually transmitted disease from Last 3 Months or Most Recently Relevant to Health Maintenance Results * HPV mRNA E6/E7 w/Reflex to HPV Genotypes 16, 18/45 (05/05/2023 10:05 AM EDT) HPV nRNA E6/E7 Not Detected Not Detected [facility] Comment:Methodology: Transcr iption-Mediated AmplificationThis assay detects E6/E7 viral messenger RNA (mRNA) from 14high-risk HPV types (16,18,31,33,35,39,45,51,52,56,58,59,66,68).Cervical sources are required for HPV testing.If a vaginal source from a patient who has had atotal hysterectomy with removal of cervix wassubmitted, please contact the testing laboratoryfor alternative testing options.For additional information, please refer tohttp://education.[employer]/faq/LSB279w2(This link if provided for information/educational purposes only.)THIS TEST WAS PERFORMED AT:[facility] [place] [id number] SILVER MD HPV mRNA E6/E7 [facility] HPV 16 RNA [facility] HPV 18/45 RNA [facility] 05/05/2023 10:0 5 AM EDT 05/06/2023 9:30 AM EDT Carmen Duron CNM LAB CYTOLOGY ORDERABLES F inal Result [facility] [address] [place] [address] [phone] * Pap Smear (05/05/2023 10:05 AM EDT) Swab Cervix uteri structure / Unknown 05/05/2023 10:05 AM EDT 05/06/2023 9:30 AM EDT Narrative [facility] - 05/15/2023 5:52 PM EDT ----- ------- Name: Mich Alemanrecia Age/Sex: 32/F : 1990 Unit#: [id number] Attend Dr: CARMEN DURON CNM Re05/05/23 Status: MIKE REF Location: HO.HHCLNP Disch: ----- ------- SPEC : [id number] RECD: 05/06/23 STATUS: ALBERT FARNSWORTH NUM: [id number] JOLENE: 05/05/23-[address]: CARMEN DURON CNM ENTERED: 05/06/23 SP TYPE: Pap Smr OTHR DR: ORDERED: Pap Smear Interpretation Satisfactory for evaluation. No endocervical cells seen. Negative for intraepithelial lesion or malignancy. Coccobacilli consistent with shift in vaginal rajesh. HPV mRNA E6/E7: NOT DETECTED This assay detects E6/E7 viral messenger RNA (mRNA) from 14 high-risk HPV types (16, 18, 31, 33, 35, 39, 45, 51, 52, 56, 58, 59, 66, 68) HPV testing performed by [employer] [facility] [employer] [facility], [place], [place]. See reference laboratory portion of the EMR for entire report. Clinical Information LMP: IUD Previous PAP test: 10/2019, WNL Material Received ThinPrep-Cervical ----- ------- Signed (signature on file) Raquel Cannon 05/15/23 1752 ----- ------- END OF REPORT Carmen Duron [facility] LAB CYTOLOGY ORDERABLES F inal Result [facility] [address] [place] [phone] * HIV-1 RNA, Quantitative, Real-Time PCR with Reflex to Genotype (RTI, PI, Integrase) (07/06/2022 9:51 AM EDT) HIV 1 RNA, QN PCR NOT DETECTED copies/mL [facility] [employer] [facility] [place], HIV 1 RNA, QN PCR NOT DETECTED Log copies/mL [facility] [employer] [facility], Comment: REFERENCE RANGE: NOT DETECTED copies/mL NOT DETECTED Log copies/mL This test was performed using Real-Time Polymerase Chain Reaction. Reportable range is 20 to 10,000,000 copies/mL (1.30-7.00 Log copies/mL). 07/06/2022 9:51 AM EDT 07/06/2022 9:52 AM EDT Narrative [facility] - 07/09/2022 2:38 AM EDT FASTING:YES FASTING: YES SheBluetestP LAB BLOOD ORDERABLES Final Resu lt Performing Organization Address City/[facility] Co de Phone Number [address], [place] [address] [facility] [employer] [facility] [employer]/Basilio [facility], [address] [place] [address] * Hepatitis C Antibody with Reflex to HCV, RNA, Quantitative, Real-Time PCR (07/06/2022 9:51 AM EDT) Hepatitis C Antibody NON-REACT GERSON NON-REACT GERSON [facility] Index 0.05 <1.00 [facility] Comment: HCV antibody was non-reactive. There is no laboratory evidence of HCV infection. In most cases, no further action is required. However, if recent HCV exposure is suspected, a test for HCV RNA (test code 23883) is suggested. For additional information please refer to http://education.[employer]/faq/DPB87x8 (This link is being provided for informational/ educational purposes only.) Blood Venous blood specimen / Unknown 07/06/2022 9:51 AM EDT 07/06/2022 9:52 AM EDT Narrative [facility] - 07/09/2022 2:38 AM EDT FASTING:YES FASTING: YES [id number] LAB BLOOD ORDERABLES Final Resu lt Performing Organization Address City/[facility]/ZIP Co de Phone Number [facility] [address] [facility], [place] [address] [employer] [facility] [address] [place] [address] from Last 3 Months or Most Recently Relevant to Health Maintenance Insurance [place] [facility] MEDICAID STAND ADULT Care Teams Shirt Presser Relationship Specialty Start Date End Date Marcello Hyde CNP [address] [place] [address] [phone] PCP - General Family Medicine 02/24/24
--- OUTSIDE RECORDS SUMMARY | 2024-08-15 13:19 | XMS_ITS | Encounter Summary ---
Author Organization [facility] Address [address] [place] [address] Phone Care Team Providers Care Freezer Unloader Name Role Phone Yair Zuñiga MD Primary Care Provider [phone] Encounter Details Date Type Department Care Team (Late st Contact Info) Description 09/23/2016 Conversion Encounter [facility] [place] [address] [place] [address] Social History Tobacco Use Types Packs/Day Years Used Date Smoking Tobacco: Never Assessed Comments Unknown Sex and Gender Information Value Date Recorded Sex Assigned at Not on file Legal Sex Female 4:11 PM EDT Gender Identity Not on file Sexual Orientation Not on file documented as of this encounter Plan of Treatment Not on file documented as of this encounter Visit Diagnoses Not on filedocumented in this encounter Care Teams Freezer Unloader Relationship Specialty Start Date End Date Yair Zuñiga MD [address] [place] [address] PCP - General 09/17/16 05/20/22 documented as of this encounter
== END 2024-08-15 12:23 | disposition home or self-care (01) ==
LOC: HO.MAMMO 12:22
PROVIDERS: Visit Provider Nurse Practitioner Family
DX: Z12.31 Encounter for screening mammogram for malignant neoplasm of breast (principal)
CPT/HCPCS: 77063; 77067

== ENCOUNTER → 2024-08-15 12:30 | Outpatient (BNV) | payer MEDICAID, SELFPAY | PROVIDERS: Visit Provider Internal Medicine | DX: Z12.31 Encounter for screening mammogram for malignant neoplasm of breast (principal) | CPT/HCPCS: 77063; 77067 ==

== ENCOUNTER 2024-12-11 11:53 | Outpatient (REF) | payer MEDICAID, SELFPAY ==
--- OUTSIDE RECORDS SUMMARY | 2024-12-11 14:44 | XMS_ITS | Encounter Summary ---
Author Organization [employer] Address [address] [facility] 7 [place] [address] Care Team Providers Care Knockout Man Name Role Phone Marcello Hyde CNP Primary Care Provider [phone] Reason for Visit * Reason Onset Date Comments Lab Orders 12/06/2024 Encounter Details Date Type Department Care Team (Late st Contact Info) Description 12/06/2024 Telephone [facility] CHC MED & PEDS [address] [place] [address] Marcello Hyde CNP [address] [place] [address] Lab Orders Social History Tobacco Use Types Packs/Day Years [...] encounter Miscellaneous Notes * Telephone Encounter - Daxa Trejo RN - 12/07/2024 3:28 PM EDT Second attempt. TC to pt. No answer. Unable to leave due to mailbox being full. * Telephone Encounter - Daxa Trejo RN - 12/06/2024 10:56 AM EDT TC to pt. No ringing went straight to VM. VM box is full and author unable to leave . * Telephone Encounter - Maia Jauregui - 12/06/2024 10:47 AM EDT Tc from pt requesting a lab order for possible test . Pt had positive at home test , pt planning on going through with if positive Contact pt at [phone] documented in this encounter Plan of Treatment Not on file documented as of this encounter Procedures Procedure Name Priority Date/Time Associated Diagnosis Comments HCG, TOTAL, QN Routine 12/11/2024 11:56 AM EST Less than 8 weeks gestation of documented in this encounter Results * hCG, Total, Quantitative (12/11/2024 11:56 AM EST) HCG Quantitative 17,212 mIU/mL [facility] Comment:Weeks post LMP Appro ximate hCG(Last Menstrual Period) Range (mIU/ml)3 - 4 weeks 9 - 1304 - 5 weeks 75 - 2,6005 - 6 weeks 850 - 20,8006 - 7 weeks 4000 - 100,2007 - 12 weeks 11,500 - 289,31947 - 16 weeks 18,300 - 137,04182 - 29 weeks (2nd trimester) 1,400 - 53,56110 - 41 weeks (3rd trimester) 940 - 60,000The Patel B- hCG assay is used for the early detection ofpregnancy; it cannot be used to diagnose any conditionunrelated to . If a B-hCG level is not supportedby the clinical evidence, results should be confirmed by analternative method (qualitative urine hCG, for example). Blood Venous blood specimen / Unknown 12/11/2024 11:56 AM EST 12/11/2024 1:16 PM EST us Marcello Hyde CNP LAB BLOOD ORDERABLES Martha l Result [facility] [address] [place] [address] [phone] documented in this encounter Visit Diagnoses Diagnosis Less than 8 weeks gestation of documented in this encounter Additional Health Concerns Assessment Noted Time PHQ-9 Depression Total Score: 0 05/03/19 25 3:26 PM EDT documented as of this encounter Care Teams Knockout Man Relationship Specialty Start Date End Date Marcello Hyde CNP PCP - General Family Medicine 02/24/24 documented as of this encounter
--- OUTSIDE RECORDS SUMMARY | 2024-12-11 14:44 | XMS_ITS | Encounter Summary ---
Author Organization [employer] Address [address] [facility] 7t [place] [address] Care Team Providers Care Risk Intern Name Role Phone She RodriguezP Primary Care Provider [phone] Elmira Desouza PUBLICITY DIRECTOR Primary Care Provider [phone] Marcello Hyde QUALIFICATIONS EXAMINER Primary Care Provider [phone] Encounter Details Date Type Department Care Team (Late st Contact Info) Description 05/06/2023 Orders Only [facility] CHC MED & PEDS [address] [place] [address] She Rodriguez FNP [address] [place] [address] Social History Tobacco Use Types Packs/Day Years [...] documented as of this encounter Care Teams Risk Intern Relationship Specialty Start Date End Date She Rodriguez FNP [address] [place] [address] PCP - General Family Medicine 02/04/22 10/10/23 Elmira Desouza NP [address] [place] [address] PCP - General Family Medicine 10/11/23 02/23/24 Marcello Hyde CNP [address] [place] [address] PCP - General Family Medicine 02/24/24 documented as of this encounter
--- OUTSIDE RECORDS SUMMARY | 2024-12-11 14:44 | XMS_ITS | Encounter Summary ---
Author Organization [employer] Address [address] [facility] 7 [place] [address] Care Team Providers Care Woodwind Reeds Cutter Name Role Phone She Rodriguez Primary Care Provider [phone] Elmira Desouza NP Primary Care Provider [phone] Marcello Hyde CNP Primary Care Provider [phone] Encounter Details Date Type Department Care Team (Latest Contact Info) Description 04/15/2020 Abstract [facility] CONVERSIONS Dental, Provider, DDS Social [...] on filedocumented in this encounter Care Teams Woodwind Reeds Cutter Relationship Specialty Start Date End Date She Rodriguez FNP [address] [place] [address] PCP - General Family Medicine 02/04/22 10/10/23 Elmira Desouza NP [address] [place] [address] PCP - General Family Medicine 10/11/23 02/23/24 Marcello Hyde CNP [address] [place] [address] PCP - General Family Medicine 02/24/24 documented as of this encounter
--- OUTSIDE RECORDS SUMMARY | 2024-12-11 14:44 | XMS_ITS | Encounter Summary ---
Author Organization [facility] Address [address] [place] [address] Phone Care Team Providers Care Polysom Tech Name Role Phone Yair Zuñiga MD Primary Care Provider [phone] Encounter Details Date Type Department Care Team (Late st Contact Info) Description 09/23/2016 Conversion Encounter [facility] [place] [address] [place] [address] Social History Tobacco Use Types Packs/Day Years [...] on filedocumented in this encounter Care Teams Polysom Tech Relationship Specialty Start Date End Date Yair Zuñiga MD [address] [place] [address] PCP - General 09/17/16 05/20/22 documented as of this encounter
--- OUTSIDE RECORDS SUMMARY | 2024-12-11 14:44 | XMS_ITS | Clinical Summary ---
Author Organization [facility] Address [address] [place] [phone] Phone Care Team Providers Care Horses Or Mules Teamster Name Role Phone Unavailable Primary Care Provider Unavailabl e Immunizations Immunization Administration Dates Next Due DTP 06/12/1997, 4,06/05/1993,1992,1992 Hep B, ped/adol 06/05/1993,1992,1992 Hib (PRP-T) 09/04/1993, 4,1992,1992 IPV 06/12/1997, 4,1992,1992 MMR 06/12/1997,09/04/1993 Td (adult) (MBL), 2 Lf tetan us toxoid, PF, adsorbed 12/30/2003 Varicella 06/12/1997 Family History Relation Name Status Comments Brother Alive Brother: mental issues Mother Mother: d Other Family history of Obesity, Family history of Asthma, Family history of Diabetes mellitus Sister Alive Sister: Alive a nd well Social History Tobacco Use Types Packs/Day Years Used Date Smoking Tobacco: Never Assessed Comments Unknown Sex and Gender Information Value Date Recorded Sex Assigned at Not on file Legal Sex Female 4:11 PM EDT Gender Identity Not on file Sexual Orientation Not on file Plan of Treatment Health Maintenance Due Date Last Done Comments Varicella Vaccines (2 of 2 - 2-dose childhood series) 09/04/1997 06/12/1997 DTaP,Tdap,and Td Vaccines (6 - Tdap) 12/31/2003 12/30/2003, 06/12/1997, 12/23/1993, Additional history exists HPV Vaccines (1 - 3-dose SCDM series) 06/15/2019 Influenza Vaccines (#1) 2024 COVID-19 Vaccine (2024- season) 2024 Hepatitis B Vaccines Completed 06/05/1993, 1992, 1992 HIB Vaccines Completed 09/04/1993, 05/09, 1992, Additional history exists IPV Vaccines Completed 06/12/1997, 05/09, 1992, Additional history exists MMR Vaccines Completed 06/12/1997, 09/04/1993 Hepatitis A Vaccines Aged Out No long er eligible based on patient's age to complete this topic Men B Vaccine Aged Out No longer elig ible based on patient's age to complete this topic Meningococcal Vaccine Aged Out No marie devorah eligible based on patient's age to complete this topic Pneumococcal Vaccine Aged Out No long er eligible based on patient's age to complete this topic
--- OUTSIDE RECORDS SUMMARY | 2024-12-11 14:44 | XMS_ITS | Encounter Summary ---
Author Organization [employer] Address [address] [facility] [address] [place] [address] Care Team Providers Care Pie Filler Name Role Phone She Rodriguez Primary Care Provider [phone] Elmira Desouza NP Primary Care Provider [phone] Marcello Hyde CNP Primary Care Provider [phone] Encounter Details Date Type Department Care Team (Latest Contact Info) Description 12/03/2021 Abstract [facility] CONVERSIONS Dental, Provider, DDS Social History [...] on filedocumented in this encounter Care Teams Pie Filler Relationship Specialty Start Date End Date She Rodriguez FNP [address] [place] [address] PCP - General Family Medicine 02/04/22 10/10/23 Elmira Desouza NP [address] [place], [place] [phone] PCP - General Family Medicine 10/11/23 02/23/24 Marcello Hyde CNP [address] [place] [address] PCP - General Family Medicine 02/24/24 documented as of this encounter
--- OUTSIDE RECORDS SUMMARY | 2024-12-11 14:44 | XMS_ITS | Encounter Summary ---
Author Organization [employer] Address [address] [facility] [address] [place] [address] Care Team Providers Care Ultrasonic Solderer Name Role Phone She Rodriguez Primary Care Provider [phone] Elmira Desouza NP Primary Care Provider [phone] Marcello Hyde CNP Primary Care Provider + [phone] Encounter Details Date Type Department Care Team (Latest Contact Info) Description 04/10/2019 Abstract [facility] CONVERSIONS Dental, Provider, DDS Social History Tobacco [...] on filedocumented in this encounter Care Teams Ultrasonic Solderer Relationship Specialty Start Date End Date She Rodriguez FNP [address] [place] [address] PCP - General Family Medicine 02/04/22 10/10/23 Elmira Desouza NP [address] [place], [place] [phone] PCP - General Family Medicine 10/11/23 02/23/24 Marcello Hyde CNP [address] [place] [address] PCP - General Family Medicine 02/24/24 documented as of this encounter
--- OUTSIDE RECORDS SUMMARY | 2024-12-11 14:44 | XMS_ITS | Encounter Summary ---
Author Organization [employer] Address [address] [facility] 7 [place] [address] Care Team Providers Care Cell Technician Name Role Phone She Rodriguez Primary Care Provider [phone] Elmira Desouza GARMENT STEAMER Primary Care Provider [phone] Marcello Hyde BITE BLOCK MAKER Primary Care Provider +[phone] Reason for Visit * Reason Onset Date Comments Referral 07/29/2022 Encounter Details Date Type Department Care Team (Late st Contact Info) Description 07/29/2022 Telephone [facility] MEDICINE [address] [place] [address] She Rodriguez FNP [address] [place] [address] Referral Social History Tobacco Use Types Packs/Day [...] have a location nor a phone number. Travel Registered Nurse Nicu doesn't see referral. documented in this encounter Plan of Treatment Not on file documented as of this encounter Visit Diagnoses Not on filedocumented in this encounter Additional Health Concerns Assessment Noted Time PHQ-9 Depression Total Score: 14 023 9:01 AM EDT documented as of this encounter Care Teams Cell Technician Relationship Specialty Start Date End Date She Rodriguez FNP [address] [place] [address] PCP - General Family Medicine 02/04/22 10/10/23 Elmira Desouza NP [address] [place] [address] PCP - General Family Medicine 10/11/23 02/23/24 Marcello Hyde CNP [address] [place] [address] PCP - General Family Medicine 02/24/24 documented as of this encounter
--- OUTSIDE RECORDS SUMMARY | 2024-12-11 14:44 | XMS_ITS | Encounter Summary ---
Author Organization [employer] Address [address] [facility] 7 [place] [address] Care Team Providers Care Identification Printing Machine Setter Name Role Phone She Rodriguez Primary Care Provider [phone] Elmira Desouza HEALTH OFFICER Primary Care Provider +[phone] Marcello Hyde STATIONARY PLANT OPERATORS Primary Care Provider +[phone] Reason for Visit * Reason Onset Date Comments Appointment Request 02/01/2023 Encounter Details Date Type Department Care Team (Late st Contact Info) Description 02/01/2023 Telephone [facility] MEDICINE [address] [place] [address] She Rodriguez FNP [address] [place] [address] Appointment Request Social History Tobacco Use Types [...] PAP smear scheduled. Please contact pt at [phone] documented in this encounter Plan of Treatment Not on file documented as of this encounter Visit Diagnoses Not on filedocumented in this encounter Additional Health Concerns Assessment Noted Time PHQ-9 Depression Total Score: 14 023 9:01 AM EDT documented as of this encounter Care Teams Identification Printing Machine Setter Relationship Specialty Start Date End Date She Rodriguez FNP [address] [place] [address] PCP - General Family Medicine 02/04/22 10/10/23 Elmira Desouza NP [address] [place] [address] PCP - General Family Medicine 10/11/23 02/23/24 Marcello Hyde CNP [address] [place] [address] PCP - General Family Medicine 02/24/24 documented as of this encounter
--- OUTSIDE RECORDS SUMMARY | 2024-12-11 14:44 | XMS_ITS | Encounter Summary ---
Author Organization [email or web address] Address [address] [facility] 7t [place] [address] Care Team Providers Care Hourly Shift Manager Name Role Phone She RodriguezP Primary Care Provider [phone] Elmira Desouza HEAVY EQUIPMENT OPERATOR/PAVER Primary Care Provider [phone] Marcello Hyde TURRET LATHE TENDER Primary Care Provider [phone] Reason for Visit * Reason Comments Med Refill Encounter Details Date Type Department Care Team (Late st Contact Info) Description 02/10/2023 Refill [facility] [address] [place] [address] Elliot Olvera FNP Acute left-sided low back [...] documented as of this encounter Care Teams Hourly Shift Manager Relationship Specialty Start Date End Date She Rodriguez FNP [address] [place] [address] PCP - General Family Medicine 02/04/22 10/10/23 Elmira Desouza NP [address] [place] [address] PCP - General Family Medicine 10/11/23 02/23/24 Marcello Hyde CNP [address] [place] [address] PCP - General Family Medicine 02/24/24 documented as of this encounter
--- OUTSIDE RECORDS SUMMARY | 2024-12-11 14:44 | XMS_ITS | Clinical Summary ---
Author Organization [id number] Address 75 [facility] 7 [place] [address] Care Team Providers Care Hoop Driving Machine Operator Helper Name Role Phone Marcello Hyde VALVING MACHINE OPERATOR Primary Care Provider [phone] Allergies Active Allergy Reactions Criticality Noted Date [...] 800 mcg under the tongue. 5 Active valACYclovir (Valtrex) 1 g tabletIndicatio ns:Recurrent HSV (herpes simplex virus) TAKE 1 TABLET BY MOUTH EVERY DAY FOR 5 DAYS 5 tablet 5 Active Active Problems Problem Noted Date [...] 03/28/2024 Rectal hemorrhage 03/28/2024 Moderate episode of recurren t major depressive disorder (CMS/HCC) 07/01/2023 AMBROSE (generalized anxiety disorder) 07/01/2023 Acute [...] Health Integration Plan Internal Follow up with I External OP therapy referral Patient Self Plan Patient to utilize skills provided in intervention , Patient to reach out to [facility] team as needed, Patient to engage in OP therapy , and Patient to reach out to [facility] as needed Dental plaque 07/27/2022 Allergic rhinitis due to pollen 07/01/2022 Dorsalgia of lumbosacral region 07/01/2022 Bradycardia 07/01/2022 Candidiasis 07/01/2022 External hemorrhoids 07/01/2022 Chronic thoracic back pain 07/01/2022 Comments Yes Encounters Date Type Department Care Team Description 12/06/2024 Telephone [facility] [address] [place] [address] Marcello Hyde CNP Lab Orders 11/05/2024 Telephone [facility] MEDICINE [address] [place] [address] Marcello Hyde CNP 10/09/2024 Telephone [facility] MEDICINE [address] [place] [address] Marcello Hyde CNP Change PCP (Patient requesting new PCP due to wanted to be seen at [facility] ) from Last 3 Months Immunizations Immunization Administration [...] Maternal Grandmother Breast cancer Mother passed from [facility] cancer age 43 Relation Name Status [...] Planning (PISQ) 06/15/2007 COVID-19 Vaccine ( season) 2024 08/18/2020, 07/15/2020 Influenza Vaccine (#1) 2024 , [...] EST Less than 8 weeks gestation of Full PROPHYLAXIS - ADULT Routine 06/28/2024 1:00 PM EDT Dental plaque BITEWINGS - 4 RADIOGRAPHIC IMAGES Routine 06/28/2024 1:00 PM EDT Dental plaque PERIODIC ORAL EVALUATION - ESTABLISHED PATIENT Routine 06/28/2024 1:00 PM EDT HPV MRNA E6/E7 REFLEX TO HPV 16, [...] Recently Relevant to Health Maintenance Results * hCG, Total, Quantitative (12/11/2024 11:56 AM EST) HCG Quantitative 17,212 mIU/mL [facility] Comment:Weeks post LMP Appr oximate hCG(Last Menstrual Period) Range (mIU/ml)3 - 4 weeks 9 - 1304 - 5 weeks 75 - 2,6005 - 6 weeks 850 - 20,8006 - 7 weeks 4000 - 100,2007 - 12 weeks 11,500 - 289,56521 - 16 weeks 18,300 - 137,99791 - 29 weeks (2nd trimester) 1,400 - 53,20814 - 41 weeks (3rd trimester) 940 - [...] 11:56 AM EST 12/11/2024 1:16 PM EST [facility] LAB BLOOD ORDERABLES Martha cook Result [facility] [address] [place] [phone] * HPV mRNA E6/E7 w/Reflex to HPV Genotypes 16, 18/45 (05/05/2023 10:05 AM EDT) HPV nRNA E6/E7 Not Detected Not Detected [facility] Comment:Methodology: Transcr iption-Mediated AmplificationThis assay detects E6/E7 viral messenger RNA (mRNA) from 14high-risk HPV types (16,18,31,33,35,39,45,51,52,56,58,59,66,68).Cervical sources are required for HPV testing.If a vaginal source from a patient who has had atotal hysterectomy with removal of cervix wassubmitted, please contact the testing laboratoryfor alternative testing options.For additional information, please refer tohttp://education.qianchengwuyou/faq/DPJ240n7(This link if provided for information/educational purposes only.)THIS TEST WAS PERFORMED AT:[facility] [place] [phone] SILVER MD HPV mRNA E6/E7 TNP [facility] HPV 16 RNA TNP [facility] HPV 18/45 RNA TNP [facility] 05/05/2023 10:0 5 AM EDT 05/06/2023 9:30 AM EDT us Carmen Duron CNM LAB CYTOLOGY ORDERABLES F inal Result [facility] [address] [place] [address] [phone] * Pap Smear (05/05/2023 10:05 AM EDT) Swab Cervix uteri structure / Unknown 05/05/2023 10:05 AM EDT 05/06/2023 9:30 AM EDT Narrative [facility] - 05/15/2023 5:52 PM EDT ----- ------- Name: Machelle Aleman Age/Sex: 32/F : 1990 Unit#: [id number] Attend Dr: CAREMN DURON CNM Re05/05/23 Status: DEP [facility]ch[facility] ----- ------- SPEC : [id number] RECD: 05/06/23 STATUS: ALBERT FARNSWORTH NUM: [id number] JOLENE: 05/05/[address] [facility] [address]: CARMEN DURON [facility] ENTERED: 05/06/23 SP TYPE: Pap Smr OT DR: ORDERED: Pap Smear Interpretation Satisfactory for evaluation. No endocervical cells seen. Negative for intraepithelial lesion or malignancy. Coccobacilli consistent with shift in vaginal rajesh. HPV mRNA E6/E7: NOT DETECTED This assay detects E6/E7 viral messenger RNA (mRNA) from 14 high-risk HPV types (16, 18, 31, 33, 35, 39, 45, 51, 52, 56, 58, 59, 66, 68) HPV testing performed by [facility], [place], [place]. See reference laboratory portion of the EMR for entire report. Clinical Information LMP: IUD Previous PAP test: 10/2019, WNL Material Received ThinPrep-Cervical ----- ------- Signed (signature on file) Raquel Cannon 05/15/23 1752 ----- ------- END OF REPORT us Carmen Duron CNM LAB CYTOLOGY ORDERABLES F inal Result [facility] [address] [place] [phone] [phone] * HIV-1 RNA, Quantitative, Real-Time PCR with Reflex to Genotype (RTI, PI, Integrase) (07/06/2022 9:51 AM EDT) HIV 1 RNA, QN PCR NOT DETECTED copies/mL [facility], HIV 1 RNA, QN PCR NOT DETECTED Log copies/mL [facility], Comment: REFERENCE RANGE: NOT DETECTED copies/mL NOT DETECTED Log copies/mL This test was performed using Real-Time Polymerase Chain Reaction. Reportable range is 20 to 10,000,000 copies/mL (1.30-7.00 Log copies/mL). 07/06/2022 9:51 AM EDT 07/06/2022 9:52 AM EDT Narrative [facility] - 07/09/2022 2:38 AM EDT FASTING:YES FASTING: YES Result [facility] She Rodriguez AD SETTER LAB BLOOD ORDERABLES Final Resu lt [facility] [address], [place] [address] [facility], [address] [place] [address] * Hepatitis C Antibody with Reflex to HCV, RNA, Quantitative, Real-Time PCR (07/06/2022 9:51 AM EDT) Hepatitis C Antibody NON-REACT GERSON NON-REACT GERSON [facility] Index 0.05 <1.00 [facility] Comment: HCV antibody was non-reactive. There is no laboratory evidence of HCV infection. In most cases, no further action is required. However, if recent HCV exposure is suspected, a test for HCV RNA (test code 38432) is suggested. For additional information please refer to http://education.[employer]ar Geothermal.Global Filmdemic/faq/DPV72g4 (This link is being provided for informational/ educational purposes only.) Blood Venous blood specimen / Unknown 07/06/2022 9:51 AM EDT 07/06/2022 9:52 AM EDT Narrative [facility] - 07/09/2022 2:38 AM EDT FASTING:YES FASTING: YES She Rodriguez AD SETTER LAB BLOOD ORDERABLES Final Resu lt [facility] [address], [facility] [place] [address] [facility] [address] [place] [address] from Last 3 Months or Most Recently Relevant to Health Maintenance Insurance [facility] C3 DENTAL-[facility] MEDICAID STAND ADULT Care Teams Hoop Driving Machine Operator Helper Relationship Specialty Start Date End Date Marcello Hyde CNP PCP - General Family Medicine 02/24/24
== END 2024-12-11 11:54 | disposition home or self-care (01) ==
LOC: HO.HHCL 11:53
DX: O26.891 Other specified pregnancy related conditions, first trimester (principal); R11.0 Nausea; Z3A.01 Less than 8 weeks gestation of pregnancy
CPT/HCPCS: 36415; 84207; 84702

== ENCOUNTER 2025-01-08 15:02 | Outpatient (REF) | payer MEDICAID, SELFPAY ==
[2025-01-08 16:04] LABS: Hematocrit 35.2 % (37.0-47.0); Hemoglobin 12.0 g/dl (12.0-16.0); Imm Gran Abs Auto 0.03 X10*3/uL (0.00-0.03); Imm Gran Pct Auto 0.3 % (0.0-0.4); Lymphocytes Absolute Auto 2.7 X10*3/uL (1.2-4.9); MANUAL DIFF FLAG NO; Mean Corpuscular HGB Conc 34.1 g/dl (31.0-35.0); Mean Corpuscular Hemoglobin 28.6 pg (27.0-33.0); Mean Corpuscular Volume 84.0 fL (80.0-98.0); NRBC Abs Auto 0.000 X10*3/uL (0.0-0.012); NRBC Pct Auto 0.0 /100WBC (0.0-0.2); Platelet Count 266 X10*3/uL (160-400); Red Blood Count 4.19 X10*6/uL (4.20-5.50); White Blood Count 8.6 X10*3/uL (4.8-10.8)
--- OUTSIDE RECORDS SUMMARY | 2025-01-08 16:52 | XMS_ITS | Encounter Summary ---
Author Organization [employer] Address 75 [facility] 7 [place] [address] Care Team Providers Care Bank Advisor Name Role Phone She Rodriguez Primary Care Provider [phone] Elmira Desouza NP Primary Care Provider +[phone] Marcello Hyde UNDERGROUND SUPERVISOR Primary Care Provider + [phone] Encounter Details Date Type Department Care Team (Latest Contact Info) Description 12/03/2021 Abstract [facility] CONVERSIONS Dental, Provider, DDS Social History [...] Care Team (Late st Contact Info) Description 04/05/2025 8:45 AM EST Office Visit [facility] ADULT DENTAL [address] [place] [address] Angie Danielle [address] [place] [address] documented as of this encounter Visit Diagnoses Not on filedocumented in this encounter Care Teams Bank Advisor Relationship Specialty Start Date End Date She Rodriguez FNP [address] [place] [address] PCP - General Family Medicine 02/04/22 10/10/23 Elmira Desouza NP [address] [place] [address] PCP - General Family Medicine 10/11/23 02/23/24 Marcello Hyde CNP [address] [place] [address] PCP - General Family Medicine 02/24/24 documented as of this encounter
--- OUTSIDE RECORDS SUMMARY | 2025-01-08 16:52 | XMS_ITS | Encounter Summary ---
Author Organization [facility] Address [address] [place] [address] Phone Care Team Providers Care Lap Winder Name Role Phone Yair Zuñiga MD Primary Care Provider [phone] Encounter Details Date Type Department Care Team (Late st Contact Info) Description 09/23/2016 Conversion Encounter [facility] [address] [place] [address] Social History Tobacco Use Types Packs/Day Years [...] on filedocumented in this encounter Care Teams Lap Winder Relationship Specialty Start Date End Date Yair Zuñiga MD [address] [place] [address] PCP - General 09/17/16 05/20/22 documented as of this encounter
--- OUTSIDE RECORDS SUMMARY | 2025-01-08 16:52 | XMS_ITS | Encounter Summary ---
Author Organization [employer] Address 75 [facility] 7 [place] [address] Care Team Providers Care Project Planner Name Role Phone Marcello Hyde CNP Primary Care Provider [phone] Reason for Visit * Reason Onset Date Comments Lab Orders 01/07/2025 Encounter Details Date Type Department Care Team (Late st Contact Info) Description 01/07/2025 Telephone [facility] MEDICINE [address] [place] [address] Marcello Hyde CNP [address] [place] [address] Lab Orders Social History Tobacco Use Types [...] Access Q2 Not on file 05/02/2024 Comments Unknown Sex and Gender Information Value Date Recorded Sex Assigned at Female 12/07/2021 10:17 AM EDT Legal Sex Female 10:17 AM EDT Gender Identity Female 12/07/2021 10:17 AM EDT Sexual Orientation Straight 12/07/2021 10 :17 AM EDT documented as of this encounter Miscellaneous Notes * Telephone Encounter - Marcello Hyde CNP - 01/08/2025 10:39 AM EST Orders placed, all set * Telephone Encounter - Manny Recinos - 01/07/2025 9:57 AM EST TC from spouse requesting Hemaglobin level orders to be placed for pt . Per request of [facility] office documented in this encounter Plan of Treatment Upcoming Encounters Date Type Department Care Team (Late st Contact Info) Description 04/05/2025 8:45 AM EST Office Visit [facility] ADULT DENTAL [address] [place] [address] Angie, Danielle [address] [place] [address] documented as of this encounter Visit Diagnoses Not on filedocumented in this encounter Additional Health Concerns Assessment Noted Time PHQ-9 Depression Total Score: 0 05/03/19 25 3:26 PM EDT documented as of this encounter Care Teams Project Planner Relationship Specialty Start Date End Date Marcello Hyde CNP PCP - General Family Medicine 02/24/24 documented as of this encounter
--- OUTSIDE RECORDS SUMMARY | 2025-01-08 16:52 | XMS_ITS | Clinical Summary ---
Author Organization [facility] Address [address] [place] [address] Phone Care Team Providers Care Senior Pricing Analyst Name Role Phone Unavailable Primary Care Provider [...]
--- OUTSIDE RECORDS SUMMARY | 2025-01-08 16:52 | XMS_ITS | Encounter Summary ---
Author Organization [employer] Address 75 [facility] 7 [place] [address] Care Team Providers Care E Business Project Manager Name Role Phone She Rodriguez Primary Care Provider [phone] Elmira Desouza NP Primary Care Provider +[phone] Marcello Hyde FRUIT CHECKER Primary Care Provider [phone] Encounter Details Date Type Department Care Team (Latest Contact Info) Description 04/10/2019 Abstract [facility] CONVERSIONS Dental, Provider, DDS Social [...] Description 04/05/2025 8:45 AM EST Office Visit [facility] ADULT DENTAL [address] [place] [address] Preet Adamsaris [address] [place] [address] documented as of this encounter Visit Diagnoses Not on filedocumented in this encounter Care Teams E Business Project Manager Relationship Specialty Start Date End Date She Rodriguez FNP [address] [place] [address] PCP - General Family Medicine 02/04/22 10/10/23 Elmira Desouza NP [address] [place] [address] PCP - General Family Medicine 10/11/23 02/23/24 Marcello Hyde CNP [address] [place] [address] PCP - General Family Medicine 02/24/24 documented as of this encounter
--- OUTSIDE RECORDS SUMMARY | 2025-01-08 16:52 | XMS_ITS | Encounter Summary ---
Author Organization [employer] Address 75 [facility] 7 [place] [address] Care Team Providers Care Certified Professional Coder Name Role Phone She RodriguezP Primary Care Provider [phone] Elmira Desouza NP Primary Care Provider +[phone] Marcello Hyde MANNEQUIN WIG MAKER Primary Care Provider + [phone] Encounter Details Date Type Department Care Team (Latest Contact Info) Description 04/15/2020 Abstract [facility] CONVERSIONS Dental, [...] Description 04/05/2025 8:45 AM EST Office Visit [facility] ADULT DENTAL [address] [place] [address] AngiePreetDanielle [address] [place] [address] documented as of this encounter Visit Diagnoses Not on filedocumented in this encounter Care Teams Certified Professional Coder Relationship Specialty Start Date End Date She Rodriguez FNP [address] [place] [address] PCP - General Family Medicine 02/04/22 10/10/23 Elmira Desouza NP [address] [place] [address] PCP - General Family Medicine 10/11/23 02/23/24 Marcello Hyde CNP [address] [place] [address] PCP - General Family Medicine 02/24/24 documented as of this encounter
--- OUTSIDE RECORDS SUMMARY | 2025-01-08 16:52 | XMS_ITS | Encounter Summary ---
Author Organization [employer] Address 75 [facility] 7t [place] [address] Care Team Providers Care Packaging Manager Name Role Phone She RodriguezP Primary Care Provider [phone] Elmira Desouza CHIEF DEPUTY SHERIFF Primary Care Provider [phone] Marcello Hyde PLANT ENGINEERING SUPERVISOR Primary Care Provider [phone] Reason for Visit * Reason Comments Med Refill Encounter Details Date Type Department Care Team (Late st Contact Info) Description 02/10/2023 Refill [facility] [address] [place] [address] Elliot Olvera FNP Acute left-sided low back [...] 8:45 AM EST Office Visit [facility] ADULT DENTAL [address] [place] [address] Angie, Danielle [address] [place] [address] documented as of this encounter Visit Diagnoses Diagnosis Acute left-sided low back pain with left-sided sciatica documented in this encounter Additional Health Concerns Assessment Noted Time PHQ-9 Depression Total Score: 14 023 9:01 AM EDT documented as of this encounter Care Teams Packaging Manager Relationship Specialty Start Date End Date She Rodriguez FNP [address] [place] [address] PCP - General Family Medicine 02/04/22 10/10/23 Elmira Desouza NP [address] [place] [address] PCP - General Family Medicine 10/11/23 02/23/24 Marcello Hyde CNP [address] [place] [address] PCP - General Family Medicine 02/24/24 documented as of this encounter
--- OUTSIDE RECORDS SUMMARY | 2025-01-08 16:52 | XMS_ITS | Encounter Summary ---
Author Organization [employer] Address 75 [facility] 7 [place] [address] Care Team Providers Care Land Appraiser Name Role Phone She Rodriguez Primary Care Provider [phone] Elmira Desouza LEGAL ASSOCIATE Primary Care Provider +[phone] Marcello Hyde JAIL OFFICER Primary Care Provider [phone] Reason for Visit * Reason Onset Date Comments Referral 07/29/2022 Encounter Details Date Type Department Care Team (Late st Contact Info) Description 07/29/2022 Telephone [facility] MEDICINE [address] [place] [address] She Rodriguez FNP [address] [place] [address] Referral Social History Tobacco Use Types Packs/Day [...] have a location nor a phone number. Cardiac Technologist doesn't see referral. documented in this encounter Plan of Treatment Upcoming Encounters Date Type Department Care Team (Late st Contact Info) Description 04/05/2025 8:45 AM EST Office Visit [facility] ADULT DENTAL [address] [place] [address] Angie, Danielle [address] [place] [address] documented as of this encounter Visit Diagnoses Not on filedocumented in this encounter Additional Health Concerns Assessment Noted Time PHQ-9 Depression Total Score: 14 023 9:01 AM EDT documented as of this encounter Care Teams Land Appraiser Relationship Specialty Start Date End Date She Rodriguez FNP [address] [place] [address] PCP - General Family Medicine 02/04/22 10/10/23 Elmira Desouza NP [address] [place] [address] PCP - General Family Medicine 10/11/23 02/23/24 Marcello Hyde CNP [address] [place] [address] PCP - General Family Medicine 02/24/24 documented as of this encounter
--- OUTSIDE RECORDS SUMMARY | 2025-01-08 16:52 | XMS_ITS | Encounter Summary ---
Author Organization [employer] Address 75 [facility] 7 [place] [address] Care Team Providers Care Sales Product Manager Name Role Phone She Rodriguez Primary Care Provider [phone] Elmira Desouza BLOW MOLDER Primary Care Provider +[phone] Marcello Hyde WHARF HAND Primary Care Provider [phone] Reason for Visit * Reason Onset Date Comments Appointment Request 02/01/2023 Encounter Details Date Type Department Care Team (Late st Contact Info) Description 02/01/2023 Telephone [facility] MEDICINE [address] [place] [address] She Rodriguez FNP [address] [place] [address] Appointment Request Social History Tobacco Use Types [...] PAP smear scheduled. Please contact pt at [phone] documented in this encounter Plan of Treatment Upcoming Encounters Date Type Department Care Team (Late st Contact Info) Description 04/05/2025 8:45 AM EST Office Visit [facility] ADULT DENTAL [address] [place] [address] Preet Adamsaris [address] [place] [address] documented as of this encounter Visit Diagnoses Not on filedocumented in this encounter Additional Health Concerns Assessment Noted Time PHQ-9 Depression Total Score: 14 023 9:01 AM EDT documented as of this encounter Care Teams Sales Product Manager Relationship Specialty Start Date End Date She Rodriguez FNP [address] [place] [address] PCP - General Family Medicine 02/04/22 10/10/23 Elmira Desouza NP [address] [place] [address] PCP - General Family Medicine 10/11/23 02/23/24 Marcello Hyde CNP [address] [place] [address] PCP - General Family Medicine 02/24/24 documented as of this encounter
--- OUTSIDE RECORDS SUMMARY | 2025-01-08 16:52 | XMS_ITS | Encounter Summary ---
Author Organization [employer] Address [address] [facility] 7 [place] [address] Care Team Providers Care Senior Art Director Name Role Phone Marcello Hyde CNP Primary Care Provider [phone] Encounter Details Date Type Department Care Team (Late st Contact Info) Description 01/08/2025 Orders Only [facility] CHC MED & PEDS [address] [place], [place] [phone] Marcello Hyde, [place] [address] [place], [place] [phone] Less than 8 weeks gestation of (Primary Dx) Social History Tobacco Use Types Packs/Day Years [...] Description 04/05/2025 8:45 AM EST Office Visit [facility] ADULT DENTAL [address] [place] [address] Angie, Danielle [address] [place] [address] documented as of this encounter Procedures Procedure Name Priority Date/Time Associated Diagnosis Comments CBC WITH AUTO DIFFERENTIAL Routine 01/08/2025 3:05 PM EST Less than 8 weeks gestation of documented in this encounter Results * (ABNORMAL) CBC auto differential (01/08/2025 3:05 PM EST) White Blood Count 8.6 4.8 - 10.8 X10*3/uL [facility] Red Blood Count 4.19(L) 4.20 - 5.50 X10*6/uL [facility] Hemoglobin 12.0 12.0 - 16.0 g/dl [facility] Hematocrit 35.2(L) 37.0 - 47.0 % [facility] Mean Corpuscular Volume 84.0 80.0 - 98.0 fL [facility] Mean Corpuscular Hemoglobin 28.6 27.0 - 33.0 pg [facility] Mean Corpuscular HGB Conc 34.1 31.0 - 35.0 g/dl [facility] Red Cell Distribution Width 13.1 11.0 - 16.0 % [facility] Platelet Count 266 160 - 400 X10*3/uL [facility] Mean Platelet Volume 10.2 9.4 - 12.3 fL [facility] Neutrophils Percent Auto 62.6 45 - 73 % [facility] Imm Gran Pct Auto 0.3 0.0 - 0.4 % [facility] Lymphocytes Percent Auto 31.1 20 - 40 % [facility] Monocytes Percent Auto 5.4 2 - 11 % [facility] Eosinophils Percent Auto 0.3 0 - 4 % [facility] Basophils Percent Auto 0.3 0 - 2 % [facility] NRBC Pct Auto 0.0 0.0 - 0.2 /100WBC [facility] Neutrophils Absolute Auto 5.4 2.0 - 8.3 x10*3/uL [facility] Imm Gran Abs Auto 0.03 0.00 - 0.03 X10*3/uL [facility] Lymphocytes Absolute Auto 2.7 1.2 - 4.9 X10*3/uL [facility] Monocytes Absolute Auto 0.5 0.1 - 1.2 X10*3/uL [facility] Eosinophils Absolute Auto 0.0 0.0 - 0.4 X10*3/uL [facility] Basophils Absolute Auto 0.0 0.0 - 0.2 X10*3/uL [facility] NRBC Abs Auto 0.000 0.0 - 0.012 X10*3/uL [facility] Blood Venous blood specimen / Unknown 01/08/2025 3:05 PM EST 01/08/2025 4:02 PM EST us Marcello Hyde BOARDING SPECIALIST LAB BLOOD ORDERABLES Martha l Result [facility] [address] [place] [phone] [phone] documented in this encounter Visit Diagnoses Diagnosis Less than 8 weeks gestation of - Primary documented in this encounter Additional Health Concerns Assessment Noted Time PHQ-9 Depression Total Score: 0 05/03/19 3:26 PM EDT documented as of this encounter Care Teams Senior Art Director Relationship Specialty Start Date End Date Marcello Hyde CNP PCP - General Family Medicine 02/24/24 documented as of this encounter
--- OUTSIDE RECORDS SUMMARY | 2025-01-08 16:52 | XMS_ITS | Encounter Summary ---
Author Organization [employer] Address 75 [facility] 7 [place] [address] Care Team Providers Care Director Of Business Services Name Role Phone She RodriguezP Primary Care Provider [phone] Elmira Desouza GENETIC SCIENTIST Primary Care Provider [phone] Marcello Hyde SCALE MODEL MAKER Primary Care Provider [phone] Encounter Details Date Type Department Care Team (Late st Contact Info) Description 05/06/2023 Orders Only [facility] CHC MED & PEDS [address] [place] [address] She Rodriguez FNP [address] [place] [address] Social History Tobacco Use Types Packs/Day Years [...] Description 04/05/2025 8:45 AM EST Office Visit [facility] ADULT DENTAL [address] [place], [place] [phone] Angie, Danielle [address] [place] [address] documented as of this encounter Visit Diagnoses Not on filedocumented in this encounter Additional Health Concerns Assessment Noted Time PHQ-9 Depression Total Score: 12 024 3:38 PM EST documented as of this encounter Care Teams Director Of Business Services Relationship Specialty Start Date End Date She Rodriguez FNP [address] [place] [address] PCP - General Family Medicine 02/04/22 10/10/23 Elmira Desouza NP [address] [place] [address] PCP - General Family Medicine 10/11/23 02/23/24 Marcello Hyde CNP [address] [place] [address] PCP - General Family Medicine 02/24/24 documented as of this encounter
--- OUTSIDE RECORDS SUMMARY | 2025-01-08 16:52 | XMS_ITS | Clinical Summary ---
Author Organization [employer] Address 75 [facility] 7 [place] [address] Care Team Providers Care Automatic Door Mechanic Name Role Phone Marcello Hyde [place] Primary Care Provider [phone] Allergies Active Allergy Reactions Criticality Noted Date [...] , Patient to reach out to [facility] team as needed, Patient to engage in OP therapy , and Patient to reach out to [facility] as needed Dental plaque 07/27/2022 Allergic rhinitis due to pollen 07/01/2022 Dorsalgia of lumbosacral region 07/01/2022 Bradycardia 07/01/2022 Candidiasis 07/01/2022 External hemorrhoids 07/01/2022 Chronic thoracic back pain 07/01/2022 Encounters Date Type Department Care Team Description 01/08/2025 Orders Only [facility] MED & PEDS [address] [place] [address] Marcello Hyde CNP Less than 8 weeks gestation of (Primary Dx) 01/07/[address] [facility] [address] [place] [address] Marcello Hyde CNP Lab Orders 12/06/2024 Telephone [facility] MED & PEDS [address] [place] [address] Marcello Hyde CNP Lab Orders 11/05/[address] [facility] [address] [place] [address] Marcello Hyde CNP 10/09/[address] [facility] [address] [place] [phone] Marcello Hyde CNP Change PCP (Patient requesting new PCP due to wanted to be seen at [facility] location not [place] ) from Last 3 Months Immunizations Immunization [...] Maternal Grandmother Breast cancer Mother passed from [facility] cancer age 43 Relation Name Status Comments [...] Description 04/05/2025 8:45 AM EST Office Visit [facility] ADULT DENTAL [address] [place] [address] Angie, Danielle [address] [place] [address] Health Maintenance Due Date Last Done Comments [...] 05/04/2028 05/05/2023 Pap Smear 05/04/2028 05/05/2023, 10/24/2019 Lipid Panel 03/30/2029 03/30/2024, 05, 02/25/2021 DTaP/Tdap/Td Vaccines (10 - Td or Tdap) [...] EST Less than 8 weeks gestation of HCG, TOTAL, QN Routine 12/11/2024 11:56 AM EST Less than 8 weeks gestation of VITAMIN B6 Routine 12/11/2024 11:56 AM EST Nausea Full PROPHYLAXIS - ADULT Routine 06/28/2024 1:00 PM EDT Dental plaque BITEWINGS - 4 RADIOGRAPHIC IMAGES Routine 06/28/2024 1:00 PM EDT Dental plaque PERIODIC ORAL EVALUATION - ESTABLISHED PATIENT Routine 06/28/2024 1:00 PM EDT LIPID PANEL, STANDARD Routine 03/30/2024 11:44 AM EST Healthcare maintenance HPV MRNA E6/E7 REFLEX TO HPV 16, [...] Relevant to Health Maintenance Results * (ABNORMAL) CBC auto differential (01/08/2025 3:05 PM EST) White Blood Count 8.6 4.8 - 10.8 X10*3/uL [facility] Red Blood Count 4.19(L) 4.20 - 5.50 X10*6/uL [facility] Hemoglobin 12.0 12.0 - 16.0 g/dl [facility] Hematocrit 35.2(L) 37.0 - 47.0 % [facility] Mean Corpuscular Volume 84.0 80.0 - 98.0 fL [facility] Mean Corpuscular Hemoglobin 28.6 27.0 - 33.0 pg [facility] Mean Corpuscular HGB Conc 34.1 31.0 - 35.0 g/dl [facility] Red Cell Distribution Width 13.1 11.0 - 16.0 % [facility] Platelet Count 266 160 - 400 X10*3/uL [facility] Mean Platelet Volume 10.2 9.4 - 12.3 fL [facility] Neutrophils Percent Auto 62.6 45 - 73 % [facility] Imm Gran Pct Auto 0.3 0.0 - 0.4 % [facility] Lymphocytes Percent Auto 31.1 20 - 40 % [facility] Monocytes Percent Auto 5.4 2 - 11 % [facility] Eosinophils Percent Auto 0.3 0 - 4 % [facility] Basophils Percent Auto 0.3 0 - 2 % [facility] NRBC Pct Auto 0.0 0.0 - 0.2 /100WBC [facility] Neutrophils Absolute Auto 5.4 2.0 - 8.3 x10*3/uL [facility] Imm Gran Abs Auto 0.03 0.00 - 0.03 X10*3/uL [facility] Lymphocytes Absolute Auto 2.7 1.2 - 4.9 X10*3/uL [facility] Monocytes Absolute Auto 0.5 0.1 - 1.2 X10*3/uL [facility] Eosinophils Absolute Auto 0.0 0.0 - 0.4 X10*3/uL [facility] Basophils Absolute Auto 0.0 0.0 - 0.2 X10*3/uL [facility] NRBC Abs Auto 0.000 0.0 - 0.012 X10*3/uL [facility] Blood Venous blood specimen / Unknown 01/08/2025 3:05 PM EST 01/08/2025 4:02 PM EST Marcello Hyde DOOR REPAIRER BUS LAB BLOOD ORDERABLES Martha l Result [facility] [address] [place] [phone] * hCG, Total, Quantitative (12/11/2024 11:56 AM EST) HCG Quantitative 17,212 mIU/mL [facility] Comment:Weeks post LMP Appro ximate hCG(Last Menstrual Period) Range (mIU/ml)3 - 4 weeks 9 - 1304 - 5 weeks 75 - 2,6005 - 6 weeks 850 - 20,8006 - 7 weeks 4000 - 100,2007 - 12 weeks 11,500 - 289,51125 - 16 weeks 18,300 - 137,54956 - 29 weeks (2nd trimester) 1,400 - 53,16130 - 41 weeks (3rd trimester) 940 - [...] 11:56 AM EST 12/11/2024 1:16 PM EST [facility] LAB BLOOD ORDERABLES Martha l Result [facility] [address] [place] [phone] * Vitamin B6 (12/11/2024 11:56 AM EST) Vitamin B6 5.9 2.1 - 21.7 ng/mL [facility] Comment:Vitamin supplementat ion within 24 hours prior toblood draw may affect the accuracy of the results.This test was developed and its analytical performancecharacteristics have been determined by [employer] [place], [place]. It hasnot been cleared or approved by the U.S. Food and DrugAdministration. This assay has been validated pursuantto the CLIA regulations and is used for clinicalpurposes.THIS TEST WAS PERFORMED AT:[id number] [place] [address]QJOFPJI W. MASON,MD,PHD Blood Venous blood specimen / Unknown 12/11/2024 11:56 AM EST 12/11/2024 1:16 PM EST [facility] LAB BLOOD ORDERABLES Martha l Result Performing Organization Address City/[facility] Co de Phone Number [facility] [address] [place] [address] [phone] * Lipid Panel, Standard (03/30/2024 11:44 AM EST) Triglycerides 46 <150 mg/dL [facility] Comment:Desirable Triglyceri de: less than 150 mg/dLBorderline High Triglyceride 150-199 mg/dLHigh Triglyceride: 200-499 mg/dLVery High Triglyceride: greater than or equal to 5OO mg/dL Cholesterol 144 <200 mg/dL [facility] Comment:Desirable Cholestero l: less than 200 mg/dLBorderline High Cholesterol: 200-239 mg/dLHigh Cholesterol: greater than 239 mg/dL LDL Cholesterol Calculated 89 <100 mg/dL [facility] Comment:Desirable LDL: less than 100 mg/dLNear Optimal/Above Optimal LDL: 110- 129 mg/dLBorderline High LDL: 130-159 mg/dLHigh LDL: 160-189 mg/dLVery High LDL: greater than or equal to 190 mg/dL HDL Cholesterol 46 >40 mg/dL [facility] Comment:Desirable HDL: great er than 40 mg/dL Note: This HDL assay may give artificially low results in patients with liver disease. Blood Venous blood specimen / Unknown 03/30/2024 11:44 AM EST 03/30/2024 1:06 PM EST [facility] LAB BLOOD ORDERABLES Martha l Result Performing Organization Address City/[facility]/ZIP Co de Phone Number [facility] [address] [place] [address] [phone] * HPV mRNA E6/E7 w/Reflex to HPV Genotypes 16, 18/45 (05/05/2023 10:05 AM EDT) HPV nRNA E6/E7 Not Detected Not Detected [facility] Comment:Methodology: Transcr iption-Mediated AmplificationThis assay detects E6/E7 viral messenger RNA (mRNA) from 14high-risk HPV types (16,18,31,33,35,39,45,51,52,56,58,59,66,68).Cervical sources are required for HPV testing.If a vaginal source from a patient who has had atotal hysterectomy with removal of cervix wassubmitted, please contact the testing laboratoryfor alternative testing options.For additional information, please refer tohttp://education.[employer]Fl[employer]/faq/NIZ818h1(This link if provided for information/educational purposes only.)THIS TEST WAS PERFORMED AT:[address] [place] [id number] SILVER MD HPV mRNA E6/E7 [facility] HPV 16 RNA [facility] HPV 18/45 RNA [facility] 05/05/2023 10:0 5 AM EDT 05/06/2023 9:30 AM EDT us Carmen Duron [facility] CYTOLOGY ORDERABLES F inal Result [facility] [address] [place] [address] [phone] * Pap Smear (05/05/2023 10:05 AM EDT) Swab Cervix uteri structure / Unknown 05/05/2023 10:05 AM EDT 05/06/2023 9:30 AM EDT Narrative [facility] - 05/15/2023 5:52 PM EDT ----- ------- Name: Machelle Aleman Age/Sex: 32/F : 1990 Unit#: [id number] Attend Dr: CARMEN DURON CNM Re05/05/23 Status: DEP REF Location: [facility] Disch: ----- ------- SPEC : [id number] RECD: 05/06/23-929 STATUS: ALBERT FARNSWORTH NUM: [id number] JOLENE: 05/05/23-1005 [facility] DR: CARMEN DURON ENTERED: 05/06/23-1007 SP TYPE: Pap Smr OTHR DR: ORDERED: [...] 59, 66, 68) HPV testing performed by [facility], [place], [place]. See reference laboratory portion of the EMR for entire report. Clinical Information LMP: IUD Previous PAP test: 10/2019, WNL Material Received ThinPrep-Cervical ----- ------- Signed (signature on file) Raquel Cannon 05/15/23 1752 ----- ------- END OF REPORT Carmen Duron [facility] CYTOLOGY ORDERABLES F inal Result [facility] [address] [place] [phone] * HIV-1 RNA, Quantitative, Real-Time PCR with Reflex to Genotype (RTI, PI, Integrase) (07/06/2022 9:51 AM EDT) Pathologist [facility] HIV 1 RNA, QN PCR NOT DETECTED copies/mL [facility], HIV 1 RNA, QN PCR NOT DETECTED Log copies/mL [facility]/N [facility], Comment: REFERENCE RANGE: NOT DETECTED copies/mL NOT DETECTED Log copies/mL This test was performed using Real-Time Polymerase Chain Reaction. Reportable range is 20 to 10,000,000 copies/mL (1.30-7.00 Log copies/mL). 07/06/2022 9:51 AM EDT 07/06/2022 9:52 AM EDT Narrative [facility] - 07/09/2022 2:38 AM EDT FASTING:YES FASTING: YES She Rodriguez JEWEL HOLE GAUGER LAB BLOOD ORDERABLES Final Resu lt [address], [place] [phone] [facility], [address] [place] [phone] * Hepatitis C Antibody with Reflex to HCV, RNA, Quantitative, Real-Time PCR (07/06/2022 9:51 AM EDT) Hepatitis C Antibody NON-REACT GERSON NON-REACT GERSON [facility] [place] [facility] Index 0.05 <1.00 [facility] Comment: HCV antibody was non-reactive. There is no laboratory evidence of HCV infection. In most cases, no further action is required. However, if recent HCV exposure is suspected, a test for HCV RNA (test code 88766) is suggested. For additional information please refer to http://education.ClusterFlunk/faq/NJD93b8 (This link is being provided for informational/ educational purposes only.) Blood Venous blood specimen / Unknown 07/06/2022 9:51 AM EDT 07/06/2022 9:52 AM EDT Narrative [facility] - 07/09/2022 2:38 AM EDT FASTING:YES FASTING: YES She Rodriguez [facility] LAB BLOOD ORDERABLES Final Resu lt [facility] [address], [place] [address] [facility] [place] [employer] [address] [place] [phone] from Last 3 Months or Most Recently Relevant to Health Maintenance Insurance [facility] STAND ADULT Care Teams Automatic Door Mechanic Relationship Specialty Start Date End Date Marcello Hyde CNP PCP - General Family Medicine 02/24/24
== END 2025-01-08 15:03 | disposition home or self-care (01) ==
LOC: HO.HHCL 15:02
DX: Z3A.01 Less than 8 weeks gestation of pregnancy (principal)
CPT/HCPCS: 36415; 85025